=== PATIENT | female | born 1960 | race Two or more races ===

== ENCOUNTER 2016-09-05 05:16 | Inpatient (IN) | payer MEDICAID, OTHER ==
[~2016-09-05] VITALS: Ht 170.2 cm; Wt 94.9 kg
[~2016-09-05 05:16] MED LIST: AMOX-263 PO; ASPI-266 PO; ATOR20TA50 PO; CLON0.1T PO; DOCU-94 PO; DOXY-216 PO; ERGO1CAP23 PO; HYD25T PO; INS7030I BC; INS7030I SC; LOSA50TA6 PO; METO-158 PO; NIF30XLT PO; ONDA4TAB5 PO
[2016-09-05] MEDS ORDERED: cefTRIAXone 1GM/50ML D5W 50 ML IV ONE (07:00)
[2016-09-05 07:12] LABS: Basophils # (auto) 0.1 uL; Basophils % (auto) 0.9 % (0.0-2.0); Eosinophils # (auto) 0.4 uL; Eosinophils % (auto) 4.3 % (0.0-7.0); Hematocrit 32.5 % (36.0-46.0); Hemoglobin 10.8 g/dL (12.2-16.2); Lymphocytes # (auto) 2.3 uL; Lymphocytes % (auto) 25.8 % (10.0-50.0); Mean Corpuscular Hemoglobin 30.4 pg (28.0-32.0); Mean Corpuscular Hgb Conc. 33.2 g/dL (32.0-36.0); Mean Corpuscular Volume 91.7 fL (80.0-100.0); Mean Platelet Volume 10.1 fL (7.4-10.4); Monocytes # (auto) 0.5 uL; Monocytes % (auto) 5.3 % (0.0-12.0); Neutrophils # (auto) 5.7 uL; Neutrophils % (auto) 63.7 % (37.0-80.0); Platelet Count (auto) 155 10^3/uL (140-450); Red Cell Distribution Width 14.8 % (11.6-16.0); SUSPECT VIEW TRANSMISSION
[2016-09-05 07:21] LABS: INR 0.96 (0.9-1.15); Partial Thromboplastin Time 21.6 sec (22.64-33.71); Prothrombin Time 10.5 sec (9.37-12.3)
[2016-09-05 07:33] LABS: Albumin 3.4 g/dL (3.4-5.0); Alkaline Phosphatase 261 U/L (45-117); Anion Gap 13 (5-15); Aspartate Aminotransferase 61 U/L (15-37); BUN/Creatinine Ratio 5.4; Bilirubin, Total 0.4 mg/dL (0.2-1.0); Blood Urea Nitrogen 49 mg/dL (7-18); Calcium 7.5 mg/dL (8.5-10.1); Carbon Dioxide 26 mmol/L (21-32); Chloride 97 mmol/L (98-107); GFR African American 6 mL/min; GFR Non-African American 5 mL/min; Glucose 199 mg/dL (74-106); Magnesium 2.9 mg/dL (1.6-2.6); Potassium 4.4 mmol/L (3.5-5.1); Sodium 136 mmol/L (136-145); Total Protein 7.6 g/dL (6.4-8.2)
[2016-09-05] MEDS ORDERED: CLINDAMYCIN 600MG IV 50 ML IV ONE (09:00)
[2016-09-05] MEDS ORDERED: PIPERACILLIN-TAZOB 3.375GM 100 ML IV ONE (09:00)
[2016-09-05] MEDS ORDERED: DEXTROSE (50%) 50ML SYRG IV PRN (09:45)
[2016-09-05] MEDS ORDERED: NITROGLYCERIN 0.4 MG SL TAB SL PRN (09:45)
[2016-09-05] MEDS ORDERED: PROMETHAZINE HCL 25 MG/ML 1ML IV PRN (09:45)
[2016-09-05] MEDS ORDERED: LORazepam 0.5 MG TAB PO PRN (09:45)
[2016-09-05] MEDS ORDERED: MORPHINE SULF INJ 2 MG/ML SYRINGE 1ML IV PRN ×2 (09:45)
[2016-09-05] MEDS ORDERED: TEMAZEPAM 15 MG CAP PO PRN (09:45)
[2016-09-05] MEDS ORDERED: LACTULOSE 20Gm/30ML SOLN PO PRN (09:45)
[2016-09-05] MEDS ORDERED: HYDROcodone-ACET 5/325MG TAB PO PRN (09:45)
[2016-09-05] MEDS ORDERED: ACETAMINOPHEN 500 MG TAB PO PRN (09:45)
[2016-09-05] MEDS ORDERED: NITROGLYCERIN 0.2MG/HR TOPICAL PATCH TD SCH (10:00)
[2016-09-05] MEDS ORDERED: DOXYCYCLINE HYCLATE PO SCH (10:00)
[2016-09-05 10:12] LABS: Temperature: 23.8 C (20.0-25.0)
[2016-09-05] MEDS: FUROSEMIDE 40 MG/4 ML VIAL IV SCH (10:51)
[2016-09-05] MEDS: AMOXICILLIN/CLAVUL 875 MG TAB PO SCH ×2 (10:52→22:14)
[2016-09-05] MEDS: ENOXAPARIN SOD 30 MG/0.3 ML SYRINGE SC SCH (10:53)
[2016-09-05] MEDS: hydrALAZINE HCL 25 MG TAB PO SCH ×2 (10:54→22:00)
[2016-09-05] MEDS: METOPROLOL TARTRATE 50 MG TAB PO SCH ×2 (10:55→22:00)
[2016-09-05] MEDS: LOSARTAN POTASSIUM 50 MG TAB PO SCH (10:55)
[2016-09-05] MEDS: PANTOPRAZOLE 40 MG TAB PO SCH (10:56)
[2016-09-05] MEDS: DOXYCYCLINE 100 MG TAB/CAP PO SCH ×2 (10:56→22:14)
[2016-09-05] MEDS: DOCUSATE SOD 100 MG CAP PO SCH ×2 (10:57→22:15)
[2016-09-05] MEDS: ASPirin-EC 81 mg tab PO SCH (10:57)
[2016-09-05] MEDS: NIFEdipine ER 30 MG TAB PO SCH (10:57)
[2016-09-05] MEDS: ACCU-CHEK COMFORT CURVE STRIP VI SCH ×3 (10:59→18:19)
[2016-09-05] MEDS: InsuLIN REG 1unit/0.01ml Soln (100units/ml) SC SCH ×4 (11:01→23:05)
[2016-09-05 12:23] VITALS: BP 156/76
[2016-09-05 13:00] VITALS: BP_SYST 116; BP_SYST 156; BP_DIAS 69; BP_DIAS 76
[2016-09-05] MEDS: cloNIDine HCL 0.1 MG TAB PO SCH ×2 (13:24→22:14)
[2016-09-05] MEDS ORDERED: EPOETIN ALFA 2,000 UNIT/1 ML VIAL IV ONE (15:45)
[2016-09-05] MEDS ORDERED: SODIUM CHL 0.9% 1000 ML BAG XX ONE (15:45)
[2016-09-05] MEDS ORDERED: EPOETIN ALFA 3,000 UNIT/1 ML VIAL IV ONE (16:45)
[2016-09-05 17:00] VITALS: BP 144/64
[2016-09-05 19:37] VITALS: BP 130/65
[2016-09-05 22:00] VITALS: BP 125/55
[2016-09-05] MEDS ORDERED: ATORVASTATIN 20 MG TAB PO SCH (22:00)
[2016-09-06] MEDS: ACCU-CHEK COMFORT CURVE STRIP VI SCH ×4 (00:28→11:50)
[2016-09-06] MEDS: InsuLIN REG 1unit/0.01ml Soln (100units/ml) SC SCH ×4 (02:36→14:38)
[2016-09-06 05:00] VITALS: BP 119/51
[2016-09-06 06:21] LABS: Basophils # (auto) 0.1 uL; Basophils % (auto) 0.9 % (0.0-2.0); Eosinophils # (auto) 0.3 uL; Eosinophils % (auto) 4.8 % (0.0-7.0); Hematocrit 29.9 % (36.0-46.0); Hemoglobin 10.3 g/dL (12.2-16.2); Lymphocytes # (auto) 1.7 uL; Lymphocytes % (auto) 28.2 % (10.0-50.0); Mean Corpuscular Hemoglobin 31.2 pg (28.0-32.0); Mean Corpuscular Hgb Conc. 34.4 g/dL (32.0-36.0); Mean Corpuscular Volume 90.7 fL (80.0-100.0); Mean Platelet Volume 9.6 fL (7.4-10.4); Monocytes # (auto) 0.4 uL; Monocytes % (auto) 6.1 % (0.0-12.0); Neutrophils # (auto) 3.7 uL; Platelet Count (auto) 177 10^3/uL (140-450); Red Cell Distribution Width 15.2 % (11.6-16.0); White Blood Cell 6.2 10^3/uL (4.4-10.8)
[2016-09-06] MEDS: cloNIDine HCL 0.1 MG TAB PO SCH ×2 (06:45→14:15)
[2016-09-06 06:46] LABS: Albumin 2.7 g/dL (3.4-5.0); BUN/Creatinine Ratio 4.8; Bilirubin, Total 0.3 mg/dL (0.2-1.0); Calcium 7.7 mg/dL (8.5-10.1); Total Protein 6.6 g/dL (6.4-8.2)
[2016-09-06 08:00] VITALS: BP 128/57
[2016-09-06 09:00] VITALS: BP 128/57
[2016-09-06] MEDS: FUROSEMIDE 40 MG/4 ML VIAL IV SCH (09:59)
[2016-09-06] MEDS: PANTOPRAZOLE 40 MG TAB PO SCH (09:59)
[2016-09-06] MEDS: DOXYCYCLINE 100 MG TAB/CAP PO SCH (09:59)
[2016-09-06] MEDS: AMOXICILLIN/CLAVUL 875 MG TAB PO SCH (09:59)
[2016-09-06] MEDS: hydrALAZINE HCL 25 MG TAB PO SCH (09:59)
[2016-09-06] MEDS: ENOXAPARIN SOD 30 MG/0.3 ML SYRINGE SC SCH (10:00)
[2016-09-06] MEDS: METOPROLOL TARTRATE 50 MG TAB PO SCH (10:00)
[2016-09-06] MEDS: ASPirin-EC 81 mg tab PO SCH (10:00)
[2016-09-06] MEDS: DOCUSATE SOD 100 MG CAP PO SCH (10:00)
[2016-09-06] MEDS: LOSARTAN POTASSIUM 50 MG TAB PO SCH (11:00)
[2016-09-06] MEDS: NIFEdipine ER 30 MG TAB PO SCH (11:00)
[2016-09-06] MEDS ORDERED: ceFAZolin 1GM/50ML D5W 50 ML IV ONE (11:44)
[2016-09-06] MEDS ORDERED: NEOMYCIN-BACITRACIN-POLYM 15GM TOP OINT TOP ONE (11:51)
[2016-09-06] MEDS ORDERED: ceFAZolin 1GM VL ONE (11:51)
[2016-09-06] MEDS ORDERED: BACITRACIN TOP OINT 1 UD PKG TOP ONE (11:51)
[2016-09-06] MEDS ORDERED: BUPIVACAINE 0.75% INJ 10ML MPV SDV IJ ONE (11:51)
[2016-09-06] MEDS ORDERED: DEXAMETHASONE SOD PHOS 10MG/1ML VIAL INJ IV ONE (12:30)
[2016-09-06] MEDS ORDERED: ONDANSETRON HCL 4 MG/2 ML VIAL IV ONE ×2 (12:30→13:15)
[2016-09-06] MEDS ORDERED: fentaNYL CITRATE 100 MCG/2 ML VL ONE (12:48)
[2016-09-06 12:59] VITALS: BP 107/54
[2016-09-06 13:00] VITALS: BP 107/54
[2016-09-06] MEDS ORDERED: LABETALOL HCL 5 MG/ML 4ML SYRINGE IV PRN (13:15)
[2016-09-06] MEDS ORDERED: HYDROmorphone HCL 2 MG/ML VL IV PRN (13:15)
[2016-09-06 13:50] VITALS: BP 142/53
== END 2016-09-06 15:30 | disposition home health service (06) | DRG 622 ==
LOC: EDBD 05:16 → ER 05:16 → TELE 05:17 → TELE-WESTW 11:52
PROVIDERS: ADMIT Internal Medicine; ATTEND Family Medicine
PROC: 5A1D00Z (ICD-10-PCS; 2016-09-05)
PROC: 0HRMXK3 Replacement of Right Foot Skin with Nonautologous Tissue Substitute, Full Thickness, External Approach (ICD-10-PCS; 2016-09-06)
PROC: 0JBQ0ZZ Excision of Right Foot Subcutaneous Tissue and Fascia, Open Approach (ICD-10-PCS; principal; 2016-09-06 12:30)
DX: E11.621 Type 2 diabetes mellitus with foot ulcer (principal); G93.41 Metabolic encephalopathy; I13.2 Hypertensive heart and chronic kidney disease with heart failure and with stage 5 chronic kidney disease, or end stage renal disease; E11.649 Type 2 diabetes mellitus with hypoglycemia without coma; D64.9 Anemia, unspecified; N18.6 End stage renal disease; E11.22 Type 2 diabetes mellitus with diabetic chronic kidney disease; E78.5 Hyperlipidemia, unspecified; F41.9 Anxiety disorder, unspecified; I25.119 Atherosclerotic heart disease of native coronary artery with unspecified angina pectoris; L03.031 Cellulitis of right toe; G47.00 Insomnia, unspecified; K59.00 Constipation, unspecified; I50.9 Heart failure, unspecified; I48.91 Unspecified atrial fibrillation; L97.519 Non-pressure chronic ulcer of other part of right foot with unspecified severity; Z90.49 Acquired absence of other specified parts of digestive tract; Z95.0 Presence of cardiac pacemaker; Z99.2 Dependence on renal dialysis; Z79.82 Long term (current) use of aspirin; Z79.4 Long term (current) use of insulin; Z79.899 Other long term (current) drug therapy; Z71.89 Other specified counseling; Z80.8 Family history of malignant neoplasm of other organs or systems; Z82.49 Family history of ischemic heart disease and other diseases of the circulatory system; Z83.3 Family history of diabetes mellitus
CPT/HCPCS: 36415; 70450; 71010; 73700; 80053; 80320; 82550; 82962; 83036; 83605; 83735; 83880; 84443; 84484; 85025; 85610; 85652; 85730; 86850; 86900; 86901; 87040; 90935; 93005; 93923; 94761; 96365; 96366; 96375; J0690; J0696; J1100; J1642; J1815; J2405; J3490; Q4081

== ENCOUNTER 2016-10-03 11:33 | Emergency (ER) | payer OTHER, MEDICAID ==
[~2016-10-03] VITALS: Ht 167.6 cm; Wt 90.7 kg
[2016-10-03 12:24] LABS: Basophils # (auto) 0 uL; Basophils % (auto) 0.6 % (0.0-2.0); CONDITION Y; Eosinophils # (auto) 0.3 uL; Eosinophils % (auto) 4.1 % (0.0-7.0); Hematocrit 32.1 % (36.0-46.0); Hemoglobin 10.9 g/dL (12.2-16.2); Lymphocytes # (auto) 1.9 uL; Lymphocytes % (auto) 22.9 % (10.0-50.0); Mean Corpuscular Hemoglobin 30.4 pg (28.0-32.0); Mean Corpuscular Hgb Conc. 33.9 g/dL (32.0-36.0); Mean Corpuscular Volume 89.8 fL (80.0-100.0); Mean Platelet Volume 8.9 fL (7.4-10.4); Monocytes # (auto) 0.5 uL; Monocytes % (auto) 5.6 % (0.0-12.0); Neutrophils # (auto) 5.6 uL; Neutrophils % (auto) 66.8 % (37.0-80.0); Platelet Count (auto) 219 10^3/uL (140-450); Red Cell Distribution Width 13.9 % (11.6-16.0); White Blood Cell 8.4 10^3/uL (4.4-10.8)
[2016-10-03 13:28] LABS: Albumin 3.3 g/dL (3.4-5.0); BUN/Creatinine Ratio 6.4; Bilirubin, Total 0.3 mg/dL (0.2-1.0); Calcium 7.2 mg/dL (8.5-10.1); Potassium 5.1 mmol/L (3.5-5.1); Total Protein 7.2 g/dL (6.4-8.2)
[2016-10-03 14:10] VITALS: BP 130/67
== END 2016-10-03 15:53 | disposition home or self-care (01) ==
LOC: EDUNIT# 11:33 → ER 11:43
DX: R07.89 Other chest pain (principal); I13.2 Hypertensive heart and chronic kidney disease with heart failure and with stage 5 chronic kidney disease, or end stage renal disease; N18.6 End stage renal disease; Z79.899 Other long term (current) drug therapy; Z79.4 Long term (current) use of insulin; I50.9 Heart failure, unspecified; E11.22 Type 2 diabetes mellitus with diabetic chronic kidney disease; E78.5 Hyperlipidemia, unspecified; Z90.49 Acquired absence of other specified parts of digestive tract; Z95.0 Presence of cardiac pacemaker; Z99.2 Dependence on renal dialysis
CPT/HCPCS: 36415; 71010; 80053; 84484; 85025; 93005

== ENCOUNTER 2016-12-11 22:49 | Inpatient (IN) | payer OTHER, MEDICAID ==
[~2016-12-11] VITALS: Ht 162.6 cm; Wt 95.6 kg
[2016-12-11 23:50] LABS: Basophils # (auto) 0.1 uL; Basophils % (auto) 1.1 % (0.0-2.0); Eosinophils # (auto) 0.3 uL; Eosinophils % (auto) 3.5 % (0.0-7.0); Hemoglobin 11.4 g/dL (12.2-16.2); Lymphocytes # (auto) 2.8 uL; Mean Corpuscular Hemoglobin 29.2 pg (28.0-32.0); Mean Corpuscular Hgb Conc. 32.4 g/dL (32.0-36.0); Mean Platelet Volume 8.8 fL (7.4-10.4); Monocytes # (auto) 0.5 uL; Neutrophils # (auto) 4.6 uL; Neutrophils % (auto) 55.4 % (37.0-80.0); Platelet Count (auto) 226 10^3/uL (140-450); Red Cell Distribution Width 15.1 % (11.6-16.0); White Blood Cell 8.3 10^3/uL (4.4-10.8)
[2016-12-12] LABS: Albumin 3.5 g/dL (3.4-5.0); Anion Gap 12 (5-15); Aspartate Aminotransferase 25 U/L (15-37); BUN/Creatinine Ratio 5.7; Blood Urea Nitrogen 48 mg/dL (7-18); Carbon Dioxide 28 mmol/L (21-32); Chloride 98 mmol/L (98-107); GFR African American 6 mL/min; GFR Non-African American 5 mL/min; Glucose 236 mg/dL (74-106); Sodium 138 mmol/L (136-145)
[2016-12-12 00:05] LABS: Alkaline Phosphatase 195 U/L (45-117); Bilirubin, Total 0.3 mg/dL (0.2-1.0); Total Protein 7.7 g/dL (6.4-8.2)
[2016-12-12 00:09] LABS: Potassium 5.6 mmol/L (3.5-5.1)
[2016-12-12 00:35] LABS: INR 1.02 (0.9-1.15); Prothrombin Time 11.1 sec (9.37-12.3)
[2016-12-12 03:18] LABS: Partial Thromboplastin Time 27.3 sec (22.64-33.71)
[2016-12-12 04:09] LABS: Urine Bilirubin Negative (Negative); Urine Blood 1+ /uL (Negative); Urine Color Yellow (Yellow); Urine Glucose 3+ mg/dL (Normal); Urine Ketone Negative (Negative); Urine Nitrite Negative (Negative); Urine RBC 7 /hpf (0 - 4); Urine Squamous Epithelial Cell MOD /hpf (<5); Urine Urobilinogen Normal (Negative)
[2016-12-12] MEDS ORDERED: ONDANSETRON HCL 4 MG/2 ML VIAL IV ONE (05:15)
[2016-12-12] MEDS ORDERED: MORPHINE SULF INJ 2 MG/ML SYRINGE 1ML IV ONE (05:15)
[2016-12-12] MEDS ORDERED: SODIUM POLYSTYRENE SULF 15GM/60ML SUSP PR ONE (07:15)
[2016-12-12] MEDS ORDERED: LORazepam 0.5 MG TAB PO PRN (09:45)
[2016-12-12] MEDS ORDERED: TEMAZEPAM 15 MG CAP PO PRN (09:45)
[2016-12-12] MEDS ORDERED: ACETAMINOPHEN 500 MG TAB PO PRN (09:45)
[2016-12-12] MEDS ORDERED: NITROGLYCERIN 0.4 MG SL TAB SL PRN (09:45)
[2016-12-12] MEDS ORDERED: LACTULOSE 20Gm/30ML SOLN PO PRN (09:45)
[2016-12-12] MEDS ORDERED: MORPHINE SULF INJ 2 MG/ML SYRINGE 1ML IV PRN ×2 (09:45)
[2016-12-12] MEDS ORDERED: cefTRIAXone 1GM/50ML D5W 50 ML IV ONE (09:45)
[2016-12-12] MEDS ORDERED: PROMETHAZINE HCL 25 MG/ML 1ML IV PRN (09:45)
[2016-12-12] MEDS ORDERED: HYDROcodone-ACET 5/325MG TAB PO PRN (09:45)
[2016-12-12] MEDS ORDERED: DEXTROSE (50%) 50ML SYRG IV PRN (09:45)
[2016-12-12] MEDS: DOCUSATE SOD 100 MG CAP PO SCH ×2 (10:00→21:57)
[2016-12-12] MEDS ORDERED: ENOXAPARIN SOD 40 MG/0.4 ML SYRINGE SC SCH (10:00)
[2016-12-12] MEDS: NIFEdipine ER 30 MG TAB PO SCH (10:30)
[2016-12-12] MEDS ORDERED: FUROSEMIDE 20 MG/2 ML VIAL IV ONE (10:30)
[2016-12-12] MEDS: hydrALAZINE HCL 25 MG TAB PO SCH ×2 (10:30→21:56)
[2016-12-12] MEDS: METOPROLOL TARTRATE 50 MG TAB PO SCH ×2 (10:30→22:00)
[2016-12-12] MEDS: ASPirin 81 mg TAB PO SCH (10:30)
[2016-12-12] MEDS ORDERED: SODIUM POLYSTYRENE SULF 15GM/60ML SUSP PO ONE (10:30)
[2016-12-12] MEDS: PANTOPRAZOLE 40 MG TAB PO SCH (10:30)
[2016-12-12] MEDS: NITROGLYCERIN 0.2MG/HR TOPICAL PATCH TD SCH (10:30)
[2016-12-12] MEDS: ENOXAPARIN SOD 30 MG/0.3 ML SYRINGE SC SCH (10:30)
[2016-12-12] MEDS: InsuLIN REG 1unit/0.01ml Soln (100units/ml) SC SCH ×5 (10:58→23:35)
[2016-12-12] MEDS: ACCU-CHEK COMFORT CURVE STRIP VI SCH ×4 (12:00→23:35)
[2016-12-12 13:00] VITALS: BP 156/75
[2016-12-12] MEDS: CLINDAMYCIN 600MG IV 50 ML IV SCH ×2 (14:00→22:00)
[2016-12-12] MEDS: cloNIDine HCL 0.1 MG TAB PO SCH ×2 (14:00→21:58)
[2016-12-12] MEDS ORDERED: SODIUM CHL 0.9% 1000 ML BAG XX ONE (15:00)
[2016-12-12] MEDS ORDERED: MULT-647 PO (15:40)
[2016-12-12 16:45] VITALS: BP 133/67
[2016-12-12 20:00] VITALS: BP 126/70
[2016-12-12 21:59] VITALS: BP 126/70
[2016-12-12] MEDS ORDERED: ATORVASTATIN 20 MG TAB PO SCH (22:00)
[2016-12-13] MEDS: InsuLIN REG 1unit/0.01ml Soln (100units/ml) SC SCH ×4 (04:00→16:00)
[2016-12-13] MEDS: ACCU-CHEK COMFORT CURVE STRIP VI SCH ×4 (05:25→16:22)
[2016-12-13] MEDS: CLINDAMYCIN 600MG IV 50 ML IV SCH ×2 (05:26→14:00)
[2016-12-13] MEDS: cloNIDine HCL 0.1 MG TAB PO SCH ×2 (05:27→14:00)
[2016-12-13 05:34] VITALS: BP 126/57
[2016-12-13 06:30] LABS: Basophils # (auto) 0 uL; Basophils % (auto) 0.7 % (0.0-2.0); CONDITION Y; Eosinophils # (auto) 0.3 uL; Eosinophils % (auto) 4.2 % (0.0-7.0); Hematocrit 31.3 % (36.0-46.0); Hemoglobin 10.3 g/dL (12.2-16.2); Lymphocytes # (auto) 1.9 uL; Lymphocytes % (auto) 27.3 % (10.0-50.0); Mean Corpuscular Hemoglobin 29.9 pg (28.0-32.0); Mean Corpuscular Volume 90.5 fL (80.0-100.0); Mean Platelet Volume 9.5 fL (7.4-10.4); Monocytes # (auto) 0.4 uL; Monocytes % (auto) 5.9 % (0.0-12.0); Neutrophils # (auto) 4.3 uL; Neutrophils % (auto) 61.9 % (37.0-80.0); Platelet Count (auto) 212 10^3/uL (140-450); Red Cell Distribution Width 15.8 % (11.6-16.0)
[2016-12-13 06:47] LABS: Potassium 5.2 mmol/L (3.5-5.1)
[2016-12-13 07:02] LABS: Albumin 2.8 g/dL (3.4-5.0); BUN/Creatinine Ratio 5.9; Bilirubin, Total 0.3 mg/dL (0.2-1.0); Calcium 6.2 mg/dL (8.5-10.1); Total Protein 6.5 g/dL (6.4-8.2)
[2016-12-13] MEDS ORDERED: SODIUM POLYSTYRENE SULF 15GM/60ML SUSP PO ONE (07:15)
[2016-12-13] MEDS: DOCUSATE SOD 100 MG CAP PO SCH (07:54)
[2016-12-13] MEDS: PANTOPRAZOLE 40 MG TAB PO SCH (07:54)
[2016-12-13] MEDS: ASPirin 81 mg TAB PO SCH (07:54)
[2016-12-13 09:00] VITALS: BP 116/58
[2016-12-13] MEDS ORDERED: cefTRIAXone 1GM/50ML D5W 50 ML IV SCH ×2 (09:00)
[2016-12-13] MEDS: METOPROLOL TARTRATE 50 MG TAB PO SCH (09:10)
[2016-12-13] MEDS: NIFEdipine ER 30 MG TAB PO SCH (09:10)
[2016-12-13] MEDS: hydrALAZINE HCL 25 MG TAB PO SCH (09:10)
[2016-12-13] MEDS: ENOXAPARIN SOD 30 MG/0.3 ML SYRINGE SC SCH (09:10)
[2016-12-13] MEDS: NITROGLYCERIN 0.2MG/HR TOPICAL PATCH TD SCH (10:00)
[2016-12-13] MEDS ORDERED: HEPARIN 1,000 UNITS/ml 1ML VIAL IV SCH (10:45)
[2016-12-13 13:00] VITALS: BP 12/49
[2016-12-13] MEDS ORDERED: EPOETIN ALFA 10,000 UNIT/1 ML VIAL IV ONE (14:00)
[2016-12-13 16:43] VITALS: BP 121/54
[2016-12-13] MEDS ORDERED: HEPARIN SODIUM (PORCINE) 5000 UNITS/ML 1ML VIAL SC SCH (22:00)
== END 2016-12-13 18:10 | disposition home or self-care (01) | DRG 313 ==
LOC: ER 22:49 → OVERFLOW 22:50 → TELE-CENTR 12-12 12:24
PROVIDERS: ADMIT Internal Medicine; ATTEND Family Medicine
PROC: 5A1D00Z (ICD-10-PCS; principal; 2016-12-13)
DX: R07.89 Other chest pain (principal); I13.2 Hypertensive heart and chronic kidney disease with heart failure and with stage 5 chronic kidney disease, or end stage renal disease; N18.6 End stage renal disease; E11.22 Type 2 diabetes mellitus with diabetic chronic kidney disease; N39.0 Urinary tract infection, site not specified; E87.5 Hyperkalemia; L03.031 Cellulitis of right toe; F41.9 Anxiety disorder, unspecified; E78.5 Hyperlipidemia, unspecified; E11.51 Type 2 diabetes mellitus with diabetic peripheral angiopathy without gangrene; E11.65 Type 2 diabetes mellitus with hyperglycemia; I48.91 Unspecified atrial fibrillation; D64.9 Anemia, unspecified; E66.9 Obesity, unspecified; I50.9 Heart failure, unspecified; Z99.2 Dependence on renal dialysis; Z83.3 Family history of diabetes mellitus; Z95.0 Presence of cardiac pacemaker; Z90.49 Acquired absence of other specified parts of digestive tract; Z68.36 Body mass index [BMI] 36.0-36.9, adult; Z82.49 Family history of ischemic heart disease and other diseases of the circulatory system; Z79.899 Other long term (current) drug therapy; Z79.82 Long term (current) use of aspirin
CPT/HCPCS: 36415; 71010; 80053; 80307; 81001; 82550; 82962; 83036; 84484; 85025; 85610; 85652; 85730; 86141; 87086; 90935; 93005; 93306; 96365; 96375; G0378; J0696; J0885; J1642; J1815; J2405; J3490

== ENCOUNTER 2016-12-30 14:28 | Inpatient (IN) | payer MEDICAID, OTHER ==
[~2016-12-30] VITALS: Ht 162.6 cm; Wt 97.5 kg
[~2016-12-30 14:28] MED LIST changes: +MULT-647 PO
[2016-12-30] MEDS ORDERED: SODIUM CHLORIDE 0.9% 500 ML IV ONE (18:05)
[2016-12-30] MEDS ORDERED: MORPHINE SULF INJ 2 MG/ML SYRINGE 1ML IV ONE (18:15)
[2016-12-30] MEDS ORDERED: ONDANSETRON HCL 4 MG/2 ML VIAL IV ONE (18:15)
[2016-12-30] MEDS ORDERED: CLINDAMYCIN 600MG IV 50 ML IV ONE (18:30)
[2016-12-30] MEDS ORDERED: cefTRIAXone 1GM/50ML D5W 50 ML IV ONE (19:15)
[2016-12-30] MEDS ORDERED: cloNIDine HCL 0.1 MG TAB PO PRN (19:15)
[2016-12-30 19:18] LABS: Albumin 3.6 g/dL (3.4-5.0); BUN/Creatinine Ratio 6.8; Calcium 7.1 mg/dL (8.5-10.1); Potassium 4.9 mmol/L (3.5-5.1)
[2016-12-30 19:21] LABS: Bilirubin, Total 0.5 mg/dL (0.2-1.0)
[2016-12-30] MEDS ORDERED: NITROGLYCERIN 0.4 MG SL TAB SL PRN (19:30)
[2016-12-30] MEDS ORDERED: ACETAMINOPHEN 325 MG TAB PO PRN (19:30)
[2016-12-30] MEDS ORDERED: TEMAZEPAM 15 MG CAP PO PRN (19:30)
[2016-12-30] MEDS ORDERED: HYDROcodone-ACET 5/325MG TAB PO PRN (19:30)
[2016-12-30] MEDS ORDERED: ONDANSETRON HCL 4 MG/2 ML VIAL IV PRN (19:30)
[2016-12-30] MEDS ORDERED: MORPHINE SULF INJ 2 MG/ML SYRINGE 1ML IV PRN ×2 (19:30)
[2016-12-30 19:31] LABS: Basophils # (auto) 0.1 uL; Basophils % (auto) 0.8 % (0.0-2.0); Eosinophils # (auto) 0.3 uL; Eosinophils % (auto) 3.5 % (0.0-7.0); Hematocrit 37.5 % (36.0-46.0); Hemoglobin 12.3 g/dL (12.2-16.2); Lymphocytes # (auto) 2.7 uL; Lymphocytes % (auto) 33.8 % (10.0-50.0); Mean Corpuscular Hemoglobin 29.8 pg (28.0-32.0); Mean Corpuscular Hgb Conc. 32.7 g/dL (32.0-36.0); Mean Platelet Volume 8.6 fL (6.9-10.8); Monocytes # (auto) 0.5 uL; Monocytes % (auto) 6.1 % (0.0-12.0); Neutrophils # (auto) 4.4 uL; Neutrophils % (auto) 55.8 % (37.0-80.0); Platelet Count (auto) 193 10^3/uL (140-450); Red Cell Distribution Width 16.2 % (11.8-14.3); White Blood Cell 7.9 10^3/uL (4.4-10.8)
[2016-12-30 19:41] LABS: INR 0.95 (0.9-1.15); Prothrombin Time 10.4 sec (9.37-12.3)
[2016-12-30] MEDS: FAMOTIDINE 20 MG TAB PO SCH (19:59)
[2016-12-30 22:00] VITALS: BP 160/75
[2016-12-30] MEDS ORDERED: METOPROLOL TARTRATE 50 MG TAB PO SCH (22:00)
[2016-12-30] MEDS ORDERED: hydrALAZINE HCL 25 MG TAB PO SCH (22:00)
[2016-12-30] MEDS: SODIUM CHLOR 0.9% PF (SALINE LOCK) 10ML VIAL IV SCH (22:09)
[2016-12-30] MEDS: CLINDAMYCIN 300MG IV 50 ML IV SCH (22:10)
[2016-12-30] MEDS: ASCORBIC ACID 500 MG TAB PO SCH (22:10)
[2016-12-30] MEDS: ATORVASTATIN 20 MG TAB PO SCH (22:10)
[2016-12-30] MEDS: INSULIN 70/30 1unit/0.01ml Susp (100units/ml) SC SCH (22:12)
[2016-12-30] MEDS: DOCUSATE SOD 100 MG CAP PO PRN (22:47)
[2016-12-31] VITALS (9 sets, daily range): BP systolic 116–184; BP diastolic 42–77
[2016-12-31 05:33] LABS: Basophils # (auto) 0.1 uL; Basophils % (auto) 0.8 % (0.0-2.0); Eosinophils # (auto) 0.3 uL; Eosinophils % (auto) 3.4 % (0.0-7.0); Hematocrit 32.5 % (36.0-46.0); Hemoglobin 10.7 g/dL (12.2-16.2); Lymphocytes # (auto) 2.7 uL; Lymphocytes % (auto) 35.1 % (10.0-50.0); Mean Corpuscular Hemoglobin 29.6 pg (28.0-32.0); Mean Corpuscular Volume 89.8 fL (80.0-100.0); Mean Platelet Volume 8.7 fL (6.9-10.8); Monocytes # (auto) 0.5 uL; Monocytes % (auto) 6.3 % (0.0-12.0); Neutrophils # (auto) 4.1 uL; Neutrophils % (auto) 54.4 % (37.0-80.0); Platelet Count (auto) 171 10^3/uL (140-450); Red Cell Distribution Width 15.6 % (11.8-14.3); White Blood Cell 7.6 10^3/uL (4.4-10.8)
[2016-12-31] MEDS: CLINDAMYCIN 300MG IV 50 ML IV SCH ×3 (05:42→22:38)
[2016-12-31] MEDS: SODIUM CHLOR 0.9% PF (SALINE LOCK) 10ML VIAL IV SCH ×3 (05:42→22:40)
[2016-12-31 05:50] LABS: Albumin 2.9 g/dL (3.4-5.0); Calcium 6.6 mg/dL (8.5-10.1); Potassium 4.9 mmol/L (3.5-5.1)
[2016-12-31 05:53] LABS: BUN/Creatinine Ratio 6.9
[2016-12-31 05:56] LABS: Bilirubin, Total 0.3 mg/dL (0.2-1.0); Total Protein 6.5 g/dL (6.4-8.2)
[2016-12-31] MEDS ORDERED: INSULIN 70/30 1unit/0.01ml Susp (100units/ml) SC SCH (10:00)
[2016-12-31] MEDS ORDERED: LOSARTAN POTASSIUM 50 MG TAB PO SCH (10:00)
[2016-12-31] MEDS ORDERED: NIFEdipine ER 30 MG TAB PO SCH (10:00)
[2016-12-31] MEDS: cefTRIAXone 1GM/50ML D5W 50 ML IV SCH (10:11)
[2016-12-31] MEDS: ASCORBIC ACID 500 MG TAB PO SCH ×2 (10:11→22:39)
[2016-12-31] MEDS: FAMOTIDINE 20 MG TAB PO SCH (10:11)
[2016-12-31] MEDS: MULTIPLE VITAMIN TAB PO SCH (10:11)
[2016-12-31] MEDS: ZINC SULFATE 220 MG CAP PO SCH (10:11)
[2016-12-31] MEDS ORDERED: EPOETIN ALFA 3,000 UNIT/1 ML VIAL IV ONE (10:30)
[2016-12-31] MEDS ORDERED: EPOETIN ALFA 2,000 UNIT/1 ML VIAL IV ONE (10:30)
[2016-12-31] MEDS ORDERED: SODIUM CHL 0.9% 1000 ML BAG XX ONE (10:30)
[2016-12-31] MEDS ORDERED: CARVEDILOL 3.125 MG TAB PO ONE (10:45)
[2016-12-31] MEDS ORDERED: NIFEdipine ER 30 MG TAB PO ONE (10:45)
[2016-12-31] MEDS: InsuLIN REG 1unit/0.01ml Soln (100units/ml) SC SCH ×2 (11:55→18:00)
[2016-12-31] MEDS: ACCU-CHEK COMFORT CURVE STRIP VI SCH ×2 (11:55→18:05)
[2016-12-31] MEDS: NIFEdipine ER 30 MG TAB PO SCH (18:05)
[2016-12-31] MEDS: DOCUSATE SOD 100 MG CAP PO PRN (18:36)
[2016-12-31] MEDS: INSULIN 70/30 1unit/0.01ml Susp (100units/ml) SC SCH (22:39)
[2016-12-31] MEDS: ATORVASTATIN 20 MG TAB PO SCH (22:39)
[2016-12-31] MEDS: CARVEDILOL 3.125 MG TAB PO SCH (22:40)
[2017-01-01] MEDS: ACCU-CHEK COMFORT CURVE STRIP VI SCH ×4 (00:16→17:00)
[2017-01-01] MEDS: InsuLIN REG 1unit/0.01ml Soln (100units/ml) SC SCH ×4 (00:17→17:00)
[2017-01-01] MEDS: DEXTROSE (50%) 50ML SYRG IV PRN ×2 (04:13→06:51)
[2017-01-01 05:48] VITALS: BP 128/59
[2017-01-01] MEDS: CLINDAMYCIN 300MG IV 50 ML IV SCH ×2 (05:48→14:00)
[2017-01-01] MEDS: SODIUM CHLOR 0.9% PF (SALINE LOCK) 10ML VIAL IV SCH ×2 (05:48→14:00)
[2017-01-01 06:16] LABS: Basophils # (auto) 0.1 uL; Basophils % (auto) 0.9 % (0.0-2.0); Eosinophils # (auto) 0.2 uL; Eosinophils % (auto) 3.1 % (0.0-7.0); Hematocrit 35.2 % (36.0-46.0); Hemoglobin 11.6 g/dL (12.2-16.2); Lymphocytes # (auto) 2.4 uL; Lymphocytes % (auto) 34.6 % (10.0-50.0); Mean Corpuscular Hemoglobin 29.9 pg (28.0-32.0); Mean Corpuscular Hgb Conc. 32.9 g/dL (32.0-36.0); Mean Corpuscular Volume 90.9 fL (80.0-100.0); Mean Platelet Volume 8.9 fL (6.9-10.8); Monocytes # (auto) 0.4 uL; Monocytes % (auto) 5.7 % (0.0-12.0); Neutrophils # (auto) 3.9 uL; Neutrophils % (auto) 55.7 % (37.0-80.0); Nucleated Red Blood Cells % 0.1 %; Platelet Count (auto) 192 10^3/uL (140-450); Red Cell Distribution Width 16.2 % (11.8-14.3); White Blood Cell 6.9 10^3/uL (4.4-10.8)
[2017-01-01 06:46] LABS: BUN/Creatinine Ratio 5.7; Calcium 7.1 mg/dL (8.5-10.1); Potassium 4.1 mmol/L (3.5-5.1)
[2017-01-01 08:57] VITALS: BP 150/66
[2017-01-01 09:20] LABS: Partial Thromboplastin Time 27.8 sec (22.64-33.71); Prothrombin Time 10.9 sec (9.37-12.3)
[2017-01-01] MEDS: cefTRIAXone 1GM/50ML D5W 50 ML IV SCH (09:22)
[2017-01-01] MEDS: ZINC SULFATE 220 MG CAP PO SCH (09:23)
[2017-01-01] MEDS: ASCORBIC ACID 500 MG TAB PO SCH (09:23)
[2017-01-01] MEDS: FAMOTIDINE 20 MG TAB PO SCH (09:23)
[2017-01-01] MEDS: CARVEDILOL 3.125 MG TAB PO SCH (09:23)
[2017-01-01] MEDS: MULTIPLE VITAMIN TAB PO SCH (09:23)
[2017-01-01] MEDS ORDERED: ERGOCALCIFEROL 50,000 UNIT(1.25MG) CAP PO SCH (10:00)
[2017-01-01] MEDS ORDERED: ceFAZolin 1GM/50ML D5W 50 ML IV ONE (12:44)
[2017-01-01 13:00] VITALS: BP 144/60
[2017-01-01] MEDS ORDERED: ceFAZolin 1GM VL ONE (13:05)
[2017-01-01] MEDS ORDERED: BUPIVACAINE 0.75% INJ 10ML MPV SDV IJ ONE (13:06)
[2017-01-01] MEDS ORDERED: fentaNYL CITRATE 100 MCG/2 ML VL ONE (13:24)
[2017-01-01] MEDS ORDERED: PROPOFOL 10 MG/ML 20 ML IV ONE (13:24)
[2017-01-01] MEDS ORDERED: MIDAZOLAM HCL 1MG/1ML-2 ML VIAL ONE (13:24)
[2017-01-01] MEDS ORDERED: NEOMYCIN-BACITRACIN-POLYM 15GM TOP OINT TOP ONE (13:34)
[2017-01-01] MEDS ORDERED: ePHEDrine SULFATE 50 MG/ML AMP IV PRN (14:00)
[2017-01-01] MEDS ORDERED: fentaNYL CITRATE 100 MCG/2 ML VL IV ONE (14:00)
[2017-01-01] MEDS ORDERED: ONDANSETRON HCL 4 MG/2 ML VIAL IV ONE (14:00)
[2017-01-01] MEDS: hydrALAZINE HCL 20 MG/ML VL IV PRN ×2 (14:10→14:30)
[2017-01-01 17:00] VITALS: BP 141/61
[2017-01-01] MEDS: NIFEdipine ER 30 MG TAB PO SCH (18:00)
[2017-01-02] MEDS ORDERED: SODIUM CHL 0.9% 1000 ML BAG XX ONE (11:00)
[2017-01-03 12:07] LABS: Vitamin D 25-Hydroxy 54 ng/mL (.)
== END 2017-01-01 19:07 | disposition home or self-care (01) | DRG 264 ==
LOC: ER 14:28 → TELE 14:29 → TELE-EAST 20:13
PROVIDERS: ADMIT Internal Medicine; ATTEND Family Medicine
PROC: 5A1D00Z (ICD-10-PCS; 2016-12-31)
PROC: 0JBQ0ZZ Excision of Right Foot Subcutaneous Tissue and Fascia, Open Approach (ICD-10-PCS; principal; 2017-01-01 13:18)
DX: E10.52 Type 1 diabetes mellitus with diabetic peripheral angiopathy with gangrene (principal); I13.2 Hypertensive heart and chronic kidney disease with heart failure and with stage 5 chronic kidney disease, or end stage renal disease; N18.6 End stage renal disease; E10.22 Type 1 diabetes mellitus with diabetic chronic kidney disease; E10.621 Type 1 diabetes mellitus with foot ulcer; M86.8X7 Other osteomyelitis, ankle and foot; I50.42 Chronic combined systolic (congestive) and diastolic (congestive) heart failure; Z99.2 Dependence on renal dialysis; E78.5 Hyperlipidemia, unspecified; I25.10 Atherosclerotic heart disease of native coronary artery without angina pectoris; F41.9 Anxiety disorder, unspecified; D64.9 Anemia, unspecified; L97.519 Non-pressure chronic ulcer of other part of right foot with unspecified severity; S91.301A Unspecified open wound, right foot, initial encounter; L57.0 Actinic keratosis; E66.01 Morbid (severe) obesity due to excess calories; E10.69 Type 1 diabetes mellitus with other specified complication; Z79.4 Long term (current) use of insulin; Z68.36 Body mass index [BMI] 36.0-36.9, adult; Z83.3 Family history of diabetes mellitus; Z82.49 Family history of ischemic heart disease and other diseases of the circulatory system; Z90.49 Acquired absence of other specified parts of digestive tract; Z95.0 Presence of cardiac pacemaker; Z79.82 Long term (current) use of aspirin; Z79.899 Other long term (current) drug therapy
CPT/HCPCS: 36415; 71010; 73660; 78315; 80048; 80053; 82306; 82962; 83605; 83735; 83970; 84100; 85025; 85610; 85652; 85730; 87040; 87070; 87075; 87081; 87205; 90935; 93005; 93926; 94761; 96361; 96365; 96375; 97163; J0690; J0696; J1642; J1815; J2250; J2405; J2704; J3490; Q4081

== ENCOUNTER 2017-04-22 21:23 | Emergency (ER) | payer MEDICAID, OTHER ==
[~2017-04-22] VITALS: Ht 162.6 cm; Wt 90.7 kg
[~2017-04-22 21:23] MED LIST changes: -AMOX-263 PO; -DOXY-216 PO; -LOSA50TA6 PO
[2017-04-22 23:26] VITALS: BP 170/67
[2017-04-23 00:55] LABS: Basophils # (auto) 0.1 uL; Basophils % (auto) 1.2 % (0.0-2.0); Eosinophils # (auto) 0.2 uL; Eosinophils % (auto) 3.7 % (0.0-7.0); Hematocrit 37.9 % (36.0-46.0); Hemoglobin 12.6 g/dL (12.2-16.2); Lymphocytes # (auto) 2.1 uL; Lymphocytes % (auto) 32.1 % (10.0-50.0); Mean Corpuscular Hemoglobin 31.5 pg (28.0-32.0); Mean Corpuscular Hgb Conc. 33.3 g/dL (32.0-36.0); Mean Corpuscular Volume 94.6 fL (80.0-100.0); Monocytes # (auto) 0.5 uL; Monocytes % (auto) 7.1 % (0.0-12.0); Neutrophils # (auto) 3.7 uL; Neutrophils % (auto) 55.9 % (37.0-80.0); Platelet Count (auto) 189 10^3/uL (140-450); White Blood Cell 6.7 10^3/uL (4.4-10.8)
[2017-04-23 01:20] LABS: Potassium 4.1 mmol/L (3.5-5.1)
[2017-04-23 01:21] LABS: BUN/Creatinine Ratio 4.8; Calcium 7.1 mg/dL (8.5-10.1)
[2017-04-23 01:22] LABS: Albumin 3.3 g/dL (3.4-5.0); Bilirubin, Total 0.3 mg/dL (0.2-1.0); Total Protein 7.6 g/dL (6.4-8.2)
[2017-04-23] MEDS ORDERED: ACETAMINOPHEN/CODEINE#3 (300/30mg) TAB PO ONE (02:15)
[2017-04-23] MEDS ORDERED: CLINDAMYCIN 600 MG/4 ML VL IM ONE (02:15)
[2017-04-23] MEDS ORDERED: cefTRIAXone W LIDOCAINE 1 GM IM IM ONE (02:30)
[2017-04-23] MEDS ORDERED: ACETAMINOPHEN/CODEINE#3 (300/30mg) TAB ONE (02:45)
[2017-04-23] MEDS ORDERED: cefTRIAXone SOD 1,000 MG VL ONE (02:45)
== END 2017-04-23 03:01 | disposition home or self-care (01) ==
LOC: ER 21:23
DX: S91.331A Puncture wound without foreign body, right foot, initial encounter (principal); L03.115 Cellulitis of right lower limb; L97.519 Non-pressure chronic ulcer of other part of right foot with unspecified severity; E11.621 Type 2 diabetes mellitus with foot ulcer; I50.9 Heart failure, unspecified; I13.2 Hypertensive heart and chronic kidney disease with heart failure and with stage 5 chronic kidney disease, or end stage renal disease; F41.9 Anxiety disorder, unspecified; N18.6 End stage renal disease; E11.22 Type 2 diabetes mellitus with diabetic chronic kidney disease; E78.5 Hyperlipidemia, unspecified; Z90.49 Acquired absence of other specified parts of digestive tract; Z79.82 Long term (current) use of aspirin; Z79.4 Long term (current) use of insulin; Z79.899 Other long term (current) drug therapy; W21.31XA Struck by shoe cleats, initial encounter; Y93.89 Activity, other specified; Y92.89 Other specified places as the place of occurrence of the external cause; Y99.8 Other external cause status
CPT/HCPCS: 36415; 73630; 80053; 85025; 96372; 99285; J0696; J7030

== ENCOUNTER 2017-06-16 19:56 | Inpatient (IN) | payer OTHER, MEDICAID ==
[~2017-06-16] VITALS: Ht 162.6 cm; Wt 90.5 kg
[2017-06-16] MEDS ORDERED: cloNIDine HCL 0.1 MG TAB ONE (20:08)
[2017-06-16 20:53] LABS: Basophils # (auto) 0.1 uL; Basophils % (auto) 0.7 % (0.0-2.0); Eosinophils # (auto) 0.2 uL; Eosinophils % (auto) 2.8 % (0.0-7.0); Hematocrit 29.7 % (36.0-46.0); Lymphocytes # (auto) 2.3 uL; Mean Corpuscular Hemoglobin 32.4 pg (28.0-32.0); Mean Corpuscular Hgb Conc. 33.7 g/dL (32.0-36.0); Mean Corpuscular Volume 95.9 fL (80.0-100.0); Monocytes # (auto) 0.5 uL; Monocytes % (auto) 6.6 % (0.0-12.0); Neutrophils % (auto) 61.9 % (37.0-80.0); Nucleated Red Blood Cells % 0.1 %; Platelet Count (auto) 149 10^3/uL (140-450); Red Cell Distribution Width 14.8 % (11.8-14.3); White Blood Cell 8.2 10^3/uL (4.4-10.8)
[2017-06-16 21:10] LABS: Alanine Aminotransferase 79 U/L (13-56); Albumin 3.6 g/dL (3.4-5.0); Anion Gap 13 (5-15); Aspartate Aminotransferase 56 U/L (15-37); BUN/Creatinine Ratio 7.5; Blood Urea Nitrogen 68 mg/dL (7-18); Calcium 8.1 mg/dL (8.5-10.1); Carbon Dioxide 26 mmol/L (21-32); Chloride 98 mmol/L (98-107); GFR African American 6 mL/min; GFR Non-African American 5 mL/min; Glucose 159 mg/dL (74-106); Magnesium 2.9 mg/dL (1.6-2.6); Potassium 5.4 mmol/L (3.5-5.1); Sodium 137 mmol/L (136-145)
[2017-06-16 21:15] LABS: Alkaline Phosphatase 271 U/L (45-117); Bilirubin, Total 0.4 mg/dL (0.2-1.0); Total Protein 7.6 g/dL (6.4-8.2)
[2017-06-16] MEDS ORDERED: cloNIDine HCL 0.1 MG TAB PO ONE (22:00)
[2017-06-17] MEDS ORDERED: FUROSEMIDE 40 MG/4 ML VIAL IV ONE (07:30)
[2017-06-17] MEDS ORDERED: PIPERACILLIN-TAZOB 3.375GM 50 ML IV ONE (08:30)
[2017-06-17] MEDS ORDERED: ALBUTEROL SULF 2.5 MG/0.5ML(0.5%) NEB SOLN NEB STA (08:56)
[2017-06-17] MEDS ORDERED: DEXTROSE (50%) 50ML SYRG IV ONE (09:00)
[2017-06-17] MEDS ORDERED: CALCIUM GLUC 4.65meq/50ml D5AE 50 ML IV ONE (09:00)
[2017-06-17] MEDS ORDERED: InsuLIN REG 1unit/0.01ml Soln (100units/ml) IV ONE (09:00)
[2017-06-17] MEDS ORDERED: SODIUM BICARBONATE 8.4% INJ 50ML SYRINGE IV ONE (09:00)
[2017-06-17] MEDS ORDERED: TEMAZEPAM 15 MG CAP PO PRN (09:30)
[2017-06-17] MEDS ORDERED: MORPHINE SULFATE 4 MG/ML SYR/VIAL IV PRN ×2 (09:30)
[2017-06-17] MEDS ORDERED: cloNIDine HCL 0.1 MG TAB PO PRN (09:30)
[2017-06-17] MEDS ORDERED: ERGOCALCIFEROL 50,000 UNIT(1.25MG) CAP PO SCH ×2 (09:30→15:15)
[2017-06-17] MEDS ORDERED: VANCOMYCIN PER PHARMACY 0 MG IV SCH (09:30)
[2017-06-17] MEDS ORDERED: ONDANSETRON HCL 4 MG/2 ML VIAL IV PRN (09:30)
[2017-06-17] MEDS ORDERED: DOCUSATE SOD 100 MG CAP PO PRN (09:30)
[2017-06-17] MEDS ORDERED: NITROGLYCERIN 0.4 MG SL TAB SL PRN (09:30)
[2017-06-17] MEDS ORDERED: HYDROcodone-ACET 5/325MG TAB PO PRN (09:30)
[2017-06-17] MEDS: INSULIN 70/30 1unit/0.01ml Susp (100units/ml) SC SCH (09:45)
[2017-06-17] MEDS: MULTIPLE VITAMIN TAB PO SCH (10:00)
[2017-06-17] MEDS: ASPirin-EC 81 mg tab PO SCH (10:00)
[2017-06-17] MEDS: METOPROLOL TARTRATE 50 MG TAB PO SCH ×2 (10:00→22:03)
[2017-06-17] MEDS: ASCORBIC ACID 500 MG TAB PO SCH ×2 (10:00→22:03)
[2017-06-17] MEDS ORDERED: PIPERACILLIN-TAZOB 0.75 GM in D5W 5% 50 ML IV PRN (10:00)
[2017-06-17] MEDS: ZINC SULFATE 220 MG CAP PO SCH (10:00)
[2017-06-17] MEDS: B-COMPLEX W/ C & FOLIC ACID(NEPHROVITE TAB) PO SCH (10:00)
[2017-06-17] MEDS: NIFEdipine ER 30 MG TAB PO SCH (10:00)
[2017-06-17] MEDS: hydrALAZINE HCL 25 MG TAB PO SCH ×2 (10:00→22:02)
[2017-06-17] MEDS ORDERED: PIPERACILLIN-TAZOB 2.25GM 50 ML IV SCH (10:00)
[2017-06-17] MEDS ORDERED: VANCOMYCIN 1GM/250ML 250 ML IV ONE ×2 (11:00→15:15)
[2017-06-17] MEDS ORDERED: EPOETIN ALFA 10,000 UNIT/1 ML VIAL IV ONE (12:15)
[2017-06-17] MEDS ORDERED: SODIUM CHL 0.9% 1000 ML BAG XX ONE (12:15)
[2017-06-17 13:00] VITALS: BP 148/62
[2017-06-17 13:08] LABS: Hematocrit 29.6 % (36.0-46.0); Hemoglobin 9.9 g/dL (12.2-16.2); Mean Corpuscular Hemoglobin 32.1 pg (28.0-32.0); Mean Corpuscular Hgb Conc. 33.5 g/dL (32.0-36.0); Mean Corpuscular Volume 95.7 fL (80.0-100.0); Platelet Count (auto) 127 10^3/uL (140-450); Red Blood Cells 3.09 10^6/uL (4.0-5.20); Red Cell Distribution Width 14.9 % (11.8-14.3)
[2017-06-17 13:17] LABS: Lymphocytes % (auto) 23.6 % (10.0-50.0); Monocytes % (auto) 5.8 % (0.0-12.0); Neutrophils % (auto) 68.7 % (37.0-80.0)
[2017-06-17 13:18] LABS: Basophils # (auto) 0 uL; Basophils % (auto) 0.5 % (0.0-2.0); Eosinophils # (auto) 0.1 uL; Eosinophils % (auto) 1.4 % (0.0-7.0); Lymphocytes # (auto) 1.7 uL; Monocytes # (auto) 0.4 uL; Neutrophils # (auto) 4.8 uL
[2017-06-17] MEDS: SODIUM CHLOR 0.9% PF (SALINE LOCK) 10ML VIAL IV SCH ×2 (14:00→22:00)
[2017-06-17 16:29] VITALS: BP 138/62
[2017-06-17] MEDS: ACETAMINOPHEN 325 MG TAB PO PRN (17:06)
[2017-06-17 21:58] VITALS: BP 166/69
[2017-06-17] MEDS ORDERED: INSULIN 70/30 1unit/0.01ml Susp (100units/ml) SC SCH (22:00)
[2017-06-17] MEDS ORDERED: ATORVASTATIN 20 MG TAB PO SCH (22:00)
[2017-06-17] MEDS: PIPERACILLIN-TAZOB 2.25GM 50 ML IV SCH (22:02)
[2017-06-18] MEDS: ACETAMINOPHEN 325 MG TAB PO PRN (04:18)
[2017-06-18 05:00] VITALS: BP 135/65
[2017-06-18] MEDS: SODIUM CHLOR 0.9% PF (SALINE LOCK) 10ML VIAL IV SCH ×2 (06:04→14:00)
[2017-06-18 06:36] LABS: Albumin 3.2 g/dL (3.4-5.0); Calcium 7.3 mg/dL (8.5-10.1)
[2017-06-18] MEDS: INSULIN 70/30 1unit/0.01ml Susp (100units/ml) SC SCH (06:36)
[2017-06-18 06:40] LABS: Basophils # (auto) 0 uL; Basophils % (auto) 0.5 % (0.0-2.0); Eosinophils # (auto) 0.2 uL; Eosinophils % (auto) 2.3 % (0.0-7.0); Hematocrit 25.9 % (36.0-46.0); Hemoglobin 8.8 g/dL (12.2-16.2); Lymphocytes % (auto) 27.8 % (10.0-50.0); Mean Corpuscular Hemoglobin 32.1 pg (28.0-32.0); Mean Corpuscular Hgb Conc. 33.7 g/dL (32.0-36.0); Mean Corpuscular Volume 95.2 fL (80.0-100.0); Monocytes # (auto) 0.4 uL; Monocytes % (auto) 6.1 % (0.0-12.0); Neutrophils # (auto) 4.5 uL; Neutrophils % (auto) 63.3 % (37.0-80.0); Nucleated Red Blood Cells % 0.1 %; Platelet Count (auto) 122 10^3/uL (140-450); Red Blood Cells 2.72 10^6/uL (4.0-5.20); White Blood Cell 7.1 10^3/uL (4.4-10.8)
[2017-06-18 06:41] LABS: % Iron Saturation 35.6 % (15-50)
[2017-06-18 06:44] LABS: BUN/Creatinine Ratio 7.5; Bilirubin, Total 0.4 mg/dL (0.2-1.0); Total Protein 6.8 g/dL (6.4-8.2)
[2017-06-18 06:53] LABS: Potassium 5.7 mmol/L (3.5-5.1)
[2017-06-18 08:00] VITALS: BP 156/70
[2017-06-18 09:00] VITALS: BP 156/70
[2017-06-18] MEDS: MULTIPLE VITAMIN TAB PO SCH (09:11)
[2017-06-18] MEDS: ZINC SULFATE 220 MG CAP PO SCH (09:11)
[2017-06-18] MEDS: B-COMPLEX W/ C & FOLIC ACID(NEPHROVITE TAB) PO SCH (09:11)
[2017-06-18] MEDS: ASPirin-EC 81 mg tab PO SCH (09:12)
[2017-06-18] MEDS: ASCORBIC ACID 500 MG TAB PO SCH (09:12)
[2017-06-18] MEDS: METOPROLOL TARTRATE 50 MG TAB PO SCH (09:12)
[2017-06-18] MEDS: hydrALAZINE HCL 25 MG TAB PO SCH (09:13)
[2017-06-18] MEDS: NIFEdipine ER 30 MG TAB PO SCH (09:13)
[2017-06-18] MEDS: PIPERACILLIN-TAZOB 2.25GM 50 ML IV SCH (09:13)
[2017-06-18] MEDS ORDERED: SODIUM CHL 0.9% 1000 ML BAG XX ONE ×2 (12:00→17:15)
[2017-06-18] MEDS ORDERED: EPOETIN ALFA 10,000 UNIT/1 ML VIAL IV ONE ×2 (12:00→17:15)
[2017-06-18 13:00] VITALS: BP 161/78
[2017-06-18] MEDS ORDERED: VANCOMYCIN 1GM/250ML 250 ML IV ONE (16:00)
[2017-06-18 17:00] VITALS: BP 156/71
== END 2017-06-18 20:26 | disposition home or self-care (01) | DRG 291 ==
LOC: ER 19:56 → TELE 19:57 → TELE-WESTW 06-17 11:20
PROVIDERS: ADMIT Internal Medicine; ATTEND Family Medicine
PROC: 5A1D70Z Performance of Urinary Filtration, Intermittent, Less than 6 Hours Per Day (ICD-10-PCS; principal; 2017-06-18)
DX: I13.2 Hypertensive heart and chronic kidney disease with heart failure and with stage 5 chronic kidney disease, or end stage renal disease (principal); N18.6 End stage renal disease; E10.21 Type 1 diabetes mellitus with diabetic nephropathy; L03.115 Cellulitis of right lower limb; E83.41 Hypermagnesemia; E10.319 Type 1 diabetes mellitus with unspecified diabetic retinopathy without macular edema; I50.43 Acute on chronic combined systolic (congestive) and diastolic (congestive) heart failure; R65.10 Systemic inflammatory response syndrome (SIRS) of non-infectious origin without acute organ dysfunction; S91.331A Puncture wound without foreign body, right foot, initial encounter; I50.9 Heart failure, unspecified; W18.39XA Other fall on same level, initial encounter; E83.51 Hypocalcemia; E87.5 Hyperkalemia; I25.119 Atherosclerotic heart disease of native coronary artery with unspecified angina pectoris; D63.8 Anemia in other chronic diseases classified elsewhere; E10.22 Type 1 diabetes mellitus with diabetic chronic kidney disease; E78.5 Hyperlipidemia, unspecified; F41.9 Anxiety disorder, unspecified; D50.9 Iron deficiency anemia, unspecified; M19.90 Unspecified osteoarthritis, unspecified site; Z79.4 Long term (current) use of insulin; Z82.49 Family history of ischemic heart disease and other diseases of the circulatory system; Z83.3 Family history of diabetes mellitus; Z99.2 Dependence on renal dialysis; Y93.89 Activity, other specified; Y92.89 Other specified places as the place of occurrence of the external cause; Y99.8 Other external cause status
CPT/HCPCS: 36415; 73700; 80053; 80202; 82962; 83036; 83540; 83550; 83605; 83735; 83880; 84132; 84443; 84484; 85025; 87040; 87081; 90935; 93005; 94640; 96365; 96375; J0610; J0885; J1642; J1815; J2543

== ENCOUNTER 2018-01-08 22:36 | Emergency (ER) | payer OTHER, MEDICAID ==
[~2018-01-08] VITALS: Ht 162.6 cm; Wt 90.7 kg
[2018-01-09] LABS: Basophils # (auto) 0.1 uL; Basophils % (auto) 0.9 % (0.0-2.0); Eosinophils # (auto) 0.3 uL; Eosinophils % (auto) 3.3 % (0.0-7.0); Hematocrit 32.8 % (36.0-46.0); Hemoglobin 10.9 g/dL (12.2-16.2); Lymphocytes # (auto) 2.6 uL; Lymphocytes % (auto) 33.7 % (10.0-50.0); Mean Corpuscular Hemoglobin 33.3 pg (28.0-32.0); Mean Corpuscular Hgb Conc. 33.1 g/dL (32.0-36.0); Mean Corpuscular Volume 100.6 fL (80.0-100.0); Monocytes # (auto) 0.5 uL; Monocytes % (auto) 6.3 % (0.0-12.0); Neutrophils # (auto) 4.3 uL; Neutrophils % (auto) 55.8 % (37.0-80.0); Platelet Count (auto) 177 10^3/uL (140-450); Red Blood Cells 3.26 10^6/uL (4.0-5.20); Red Cell Distribution Width 13.6 % (11.8-14.3); White Blood Cell 7.7 10^3/uL (4.4-10.8)
[2018-01-09 00:16] LABS: INR 0.94 (0.9-1.15); Partial Thromboplastin Time 26.9 sec (23.78-33.04); Prothrombin Time 10.1 sec (9.27-12.13)
[2018-01-09 00:18] LABS: Alanine Aminotransferase 28 U/L (13-56); Albumin 3.6 g/dL (3.4-5.0); Anion Gap 13 (5-15); Aspartate Aminotransferase 24 U/L (15-37); Blood Urea Nitrogen 48 mg/dL (7-18); Calcium 7.6 mg/dL (8.5-10.1); Carbon Dioxide 28 mmol/L (21-32); Chloride 97 mmol/L (98-107); GFR African American 7 mL/min; GFR Non-African American 6 mL/min; Glucose 261 mg/dL (74-106); Magnesium 2.4 mg/dL (1.6-2.6); Potassium 5.4 mmol/L (3.5-5.1); Sodium 138 mmol/L (136-145)
[2018-01-09 00:23] LABS: Alkaline Phosphatase 138 U/L (45-117); Bilirubin, Total 0.4 mg/dL (0.2-1.0); Total Protein 8.2 g/dL (6.4-8.2)
[2018-01-09 01:54] VITALS: BP 112/68
== END 2018-01-09 02:44 | disposition home or self-care (01) ==
LOC: ER 22:38
DX: L02.611 Cutaneous abscess of right foot (principal); M14.671 Charcot's joint, right ankle and foot; L84 Corns and callosities; E11.22 Type 2 diabetes mellitus with diabetic chronic kidney disease; I13.0 Hypertensive heart and chronic kidney disease with heart failure and stage 1 through stage 4 chronic kidney disease, or unspecified chronic kidney disease; N18.9 Chronic kidney disease, unspecified; E78.5 Hyperlipidemia, unspecified; I10 Essential (primary) hypertension; Z90.49 Acquired absence of other specified parts of digestive tract; Z79.4 Long term (current) use of insulin; Z88.6 Allergy status to analgesic agent
CPT/HCPCS: 36415; 73630; 80053; 82962; 83605; 83735; 83880; 84484; 85025; 85379; 85610; 85730; 87040

== ENCOUNTER 2018-01-28 00:36 | Emergency (ER) | payer OTHER, MEDICAID ==
[~2018-01-28] VITALS: Ht 162.6 cm; Wt 93.0 kg
[2018-01-28] MEDS ORDERED: LEVOFLOXACIN 500 MG TAB PO ONE (02:00)
[2018-01-28 02:52] LABS: Basophils # (auto) 0 uL; Basophils % (auto) 0.8 % (0.0-2.0); Eosinophils # (auto) 0.1 uL; Eosinophils % (auto) 2.1 % (0.0-7.0); Hemoglobin 10.7 g/dL (12.2-16.2); Lymphocytes # (auto) 1.7 uL; Lymphocytes % (auto) 31.8 % (10.0-50.0); Mean Corpuscular Hgb Conc. 33.4 g/dL (32.0-36.0); Mean Corpuscular Volume 98.7 fL (80.0-100.0); Monocytes # (auto) 0.6 uL; Neutrophils # (auto) 2.9 uL; Neutrophils % (auto) 54.3 % (37.0-80.0); Nucleated Red Blood Cells % 0.1 %; Platelet Count (auto) 139 10^3/uL (140-450); Red Blood Cells 3.24 10^6/uL (4.0-5.20); Red Cell Distribution Width 13.5 % (11.8-14.3); White Blood Cell 5.3 10^3/uL (4.4-10.8)
[2018-01-28 03:22] LABS: Albumin 3.5 g/dL (3.4-5.0); Calcium 6.9 mg/dL (8.5-10.1); Potassium 4.7 mmol/L (3.5-5.1)
[2018-01-28 03:27] LABS: Bilirubin, Total 0.5 mg/dL (0.2-1.0); Total Protein 7.5 g/dL (6.4-8.2)
[2018-01-28 04:47] VITALS: BP 165/87
== END 2018-01-28 04:49 | disposition home or self-care (01) ==
LOC: ER 00:36
DX: J06.9 Acute upper respiratory infection, unspecified (principal); E11.22 Type 2 diabetes mellitus with diabetic chronic kidney disease; I12.0 Hypertensive chronic kidney disease with stage 5 chronic kidney disease or end stage renal disease; N18.6 End stage renal disease; E78.5 Hyperlipidemia, unspecified; Z99.2 Dependence on renal dialysis; Z79.4 Long term (current) use of insulin; Z90.49 Acquired absence of other specified parts of digestive tract; Z96.89 Presence of other specified functional implants
CPT/HCPCS: 36415; 71045; 80053; 84484; 85025

== ENCOUNTER 2018-05-22 03:34 | Inpatient (IN) | payer MEDICARE, MEDICAID ==
[~2018-05-22] VITALS: Ht 162.6 cm; Wt 94.0 kg
[~2018-05-22 03:34] MED LIST changes: -INS7030I BC
[2018-05-22] MEDS ORDERED: VANCOMYCIN 1GM/250ML 250 ML IV ONE (07:15)
[2018-05-22] MEDS ORDERED: PIPERACILLIN-TAZOB 3.375GM 100 ML IV ONE (07:15)
[2018-05-22 08:17] LABS: Basophils # (auto) 0.1 uL; Eosinophils # (auto) 0.3 uL; Eosinophils % (auto) 3.7 % (0.0-7.0); Hematocrit 35.8 % (36.0-46.0); Hemoglobin 11.9 g/dL (12.2-16.2); Lymphocytes # (auto) 1.8 uL; Lymphocytes % (auto) 22.2 % (10.0-50.0); Mean Corpuscular Hemoglobin 32.7 pg (28.0-32.0); Mean Corpuscular Hgb Conc. 33.2 g/dL (32.0-36.0); Mean Corpuscular Volume 98.6 fL (80.0-100.0); Monocytes # (auto) 0.4 uL; Monocytes % (auto) 5.2 % (0.0-12.0); Neutrophils # (auto) 5.7 uL; Neutrophils % (auto) 67.9 % (37.0-80.0); Nucleated Red Blood Cells % 0.1 %; Platelet Count (auto) 198 10^3/uL (140-450); Red Blood Cells 3.63 10^6/uL (4.0-5.20); Red Cell Distribution Width 15.3 % (11.8-14.3); White Blood Cell 8.3 10^3/uL (4.4-10.8)
[2018-05-22 08:21] LABS: Albumin 3.6 g/dL (3.4-5.0); BUN/Creatinine Ratio 5.9; Calcium 7.4 mg/dL (8.5-10.1); Potassium 4.8 mmol/L (3.5-5.1)
[2018-05-22 08:23] LABS: Bilirubin, Total 0.4 mg/dL (0.2-1.0); Total Protein 7.7 g/dL (6.4-8.2)
[2018-05-22] MEDS ORDERED: CLINDAMYCIN 900MG IV 50 ML IV ONE (09:15)
[2018-05-22] MEDS ORDERED: MORPHINE SULFATE 4 MG/ML SYR/VIAL IV PRN ×2 (09:15)
[2018-05-22] MEDS ORDERED: DEXTROSE (50%) 50ML SYRG IV PRN (09:15)
[2018-05-22] MEDS ORDERED: LACTULOSE 20Gm/30ML SOLN PO PRN (09:15)
[2018-05-22] MEDS ORDERED: NITROGLYCERIN 0.4 MG SL TAB SL PRN (09:15)
[2018-05-22] MEDS ORDERED: ONDANSETRON HCL 4 MG/2 ML VIAL IV PRN (09:15)
[2018-05-22] MEDS ORDERED: TEMAZEPAM 15 MG CAP PO PRN (09:15)
[2018-05-22] MEDS ORDERED: LORazepam 0.5 MG TAB PO PRN (09:15)
[2018-05-22] MEDS ORDERED: HYDROcodone-ACET 5/325MG TAB PO PRN (09:15)
[2018-05-22] MEDS ORDERED: PIPERACILLIN-TAZOB 0.75 GM in D5W 5% 50 ML IV PRN (09:30)
[2018-05-22] MEDS: ENOXAPARIN SOD 30 MG/0.3 ML SYRINGE SC SCH (09:57)
[2018-05-22] MEDS: PANTOPRAZOLE 40 MG TAB PO SCH (09:57)
[2018-05-22 10:00] LABS: INR 0.93 (0.9-1.15); Partial Thromboplastin Time 29.5 sec (23.78-33.04)
[2018-05-22] MEDS: PIPERACILLIN-TAZOB 2.25GM 50 ML IV SCH ×2 (10:06→23:48)
[2018-05-22] MEDS: ACETAMINOPHEN 500 MG TAB PO PRN (10:06)
[2018-05-22] MEDS ORDERED: hydrALAZINE HCL 20 MG/ML VL IV PRN ×2 (10:15)
[2018-05-22] MEDS ORDERED: hydrALAZINE HCL 25 MG TAB PO ONE (10:15)
[2018-05-22] MEDS ORDERED: NIFEdipine ER 30 MG TAB PO ONE (10:15)
[2018-05-22] MEDS ORDERED: cloNIDine HCL 0.1 MG TAB PO ONE (10:15)
[2018-05-22] MEDS ORDERED: METOPROLOL TARTRATE 50 MG TAB PO ONE (10:15)
[2018-05-22] MEDS ORDERED: hydrALAZINE HCL 20 MG/ML VL IV ONE (10:15)
[2018-05-22] MEDS ORDERED: ERGOCALCIFEROL 50,000 UNIT(1.25MG) CAP PO SCH (11:00)
[2018-05-22] MEDS: ACCU-CHEK COMFORT CURVE STRIP VI SCH ×3 (12:43→22:49)
[2018-05-22] MEDS: InsuLIN REG 1unit/0.01ml Soln (100units/ml) SC SCH ×3 (12:47→22:50)
[2018-05-22 14:34] VITALS: BP 155/80
[2018-05-22] MEDS ORDERED: FERR1TAB5 PO (15:48)
[2018-05-22] MEDS ORDERED: BISA-4 PO (15:49)
[2018-05-22] MEDS ORDERED: ASCO500T11 PO (15:50)
[2018-05-22] MEDS: CLINDAMYCIN 600MG IV 50 ML IV SCH ×2 (15:56→22:47)
[2018-05-22 17:00] VITALS: BP 164/85
[2018-05-22 22:00] VITALS: BP 167/71
[2018-05-22] MEDS ORDERED: cloNIDine HCL 0.1 MG TAB PO SCH (22:00)
[2018-05-22] MEDS ORDERED: hydrALAZINE HCL 25 MG TAB PO SCH (22:00)
[2018-05-22] MEDS: ATORVASTATIN 20 MG TAB PO SCH (22:48)
[2018-05-22] MEDS: METOPROLOL TARTRATE 50 MG TAB PO SCH (22:49)
[2018-05-23 04:59] VITALS: BP 155/77
[2018-05-23] MEDS: CLINDAMYCIN 600MG IV 50 ML IV SCH ×3 (06:43→22:36)
[2018-05-23 07:06] LABS: Basophils # (auto) 0.1 uL; Basophils % (auto) 1.1 % (0.0-2.0); Eosinophils # (auto) 0.4 uL; Hematocrit 34.2 % (36.0-46.0); Hemoglobin 11.4 g/dL (12.2-16.2); Lymphocytes # (auto) 1.1 uL; Lymphocytes % (auto) 16.7 % (10.0-50.0); Mean Corpuscular Hemoglobin 32.6 pg (28.0-32.0); Mean Corpuscular Hgb Conc. 33.3 g/dL (32.0-36.0); Mean Corpuscular Volume 97.9 fL (80.0-100.0); Monocytes # (auto) 0.3 uL; Monocytes % (auto) 4.6 % (0.0-12.0); Neutrophils # (auto) 4.9 uL; Neutrophils % (auto) 71.6 % (37.0-80.0); Platelet Count (auto) 217 10^3/uL (140-450); Red Blood Cells 3.49 10^6/uL (4.0-5.20); Red Cell Distribution Width 15.4 % (11.8-14.3); White Blood Cell 6.8 10^3/uL (4.4-10.8)
[2018-05-23] MEDS: InsuLIN REG 1unit/0.01ml Soln (100units/ml) SC SCH ×4 (07:06→22:00)
[2018-05-23] MEDS: ACCU-CHEK COMFORT CURVE STRIP VI SCH ×4 (07:06→22:39)
[2018-05-23 07:31] LABS: Sodium 131 mmol/L (136-145)
[2018-05-23 07:35] LABS: Anion Gap 13 (5-15); Blood Urea Nitrogen 68 mg/dL (7-18); Carbon Dioxide 21 mmol/L (21-32); Chloride 97 mmol/L (98-107); Glucose 148 mg/dL (74-106)
[2018-05-23 07:36] LABS: Alanine Aminotransferase 24 U/L (13-56); Alkaline Phosphatase 129 U/L (45-117); Aspartate Aminotransferase 17 U/L (15-37); BUN/Creatinine Ratio 6.1; Bilirubin, Total 0.5 mg/dL (0.2-1.0); Calcium 7.5 mg/dL (8.5-10.1); GFR African American 5 mL/min; GFR Non-African American 4 mL/min
[2018-05-23 07:37] LABS: Albumin 3.3 g/dL (3.4-5.0); Cholesterol 153 mg/dL (< 200); HDL Cholesterol 51 mg/dL (40-59); LDL Cholesterol 92 mg/dL (< 100); Total Protein 7.4 g/dL (6.4-8.2); Triglycerides 134 mg/dL (< 150)
[2018-05-23 07:42] LABS: Potassium 5.8 mmol/L (3.5-5.1)
[2018-05-23 08:00] VITALS: BP 136/66
[2018-05-23 09:34] VITALS: BP 136/96
[2018-05-23] MEDS: METOPROLOL TARTRATE 50 MG TAB PO SCH ×2 (10:00→22:39)
[2018-05-23] MEDS: NIFEdipine ER 30 MG TAB PO SCH (10:00)
[2018-05-23] MEDS: PIPERACILLIN-TAZOB 2.25GM 50 ML IV SCH (10:15)
[2018-05-23] MEDS: PANTOPRAZOLE 40 MG TAB PO SCH (10:15)
[2018-05-23] MEDS: ENOXAPARIN SOD 30 MG/0.3 ML SYRINGE SC SCH (10:16)
[2018-05-23] MEDS ORDERED: SODIUM CHL 0.9% 1000 ML BAG XX ONE (10:45)
[2018-05-23 13:06] VITALS: BP 151/69
[2018-05-23] MEDS: hydrALAZINE HCL 25 MG TAB PO SCH ×2 (14:16→22:37)
[2018-05-23 17:28] VITALS: BP 164/71
[2018-05-23 21:35] VITALS: BP 174/80
[2018-05-23] MEDS: ATORVASTATIN 20 MG TAB PO SCH (22:38)
[2018-05-24] MEDS: PIPERACILLIN-TAZOB 2.25GM 50 ML IV SCH ×3 (00:13→23:28)
[2018-05-24] MEDS: ACETAMINOPHEN 500 MG TAB PO PRN ×3 (02:24→21:26)
[2018-05-24 04:51] VITALS: BP 134/64
[2018-05-24] MEDS: CLINDAMYCIN 600MG IV 50 ML IV SCH ×3 (05:28→21:24)
[2018-05-24] MEDS: hydrALAZINE HCL 25 MG TAB PO SCH ×3 (05:29→21:23)
[2018-05-24] MEDS: ACCU-CHEK COMFORT CURVE STRIP VI SCH ×4 (06:39→22:07)
[2018-05-24] MEDS: InsuLIN REG 1unit/0.01ml Soln (100units/ml) SC SCH ×4 (06:40→22:08)
[2018-05-24 08:00] VITALS: BP 140/60
[2018-05-24 08:18] LABS: Albumin 3.3 g/dL (3.4-5.0); Calcium 7.6 mg/dL (8.5-10.1); Potassium 4.5 mmol/L (3.5-5.1)
[2018-05-24 08:21] LABS: BUN/Creatinine Ratio 4.3; Bilirubin, Total 0.5 mg/dL (0.2-1.0); Phosphorus 5.7 mg/dL (2.5-4.90); Total Protein 7.5 g/dL (6.4-8.2)
[2018-05-24 08:51] VITALS: BP 140/60
[2018-05-24] MEDS: METOPROLOL TARTRATE 50 MG TAB PO SCH ×2 (09:39→21:25)
[2018-05-24] MEDS: PANTOPRAZOLE 40 MG TAB PO SCH (09:39)
[2018-05-24] MEDS: ENOXAPARIN SOD 30 MG/0.3 ML SYRINGE SC SCH (09:39)
[2018-05-24] MEDS: NIFEdipine ER 30 MG TAB PO SCH (09:40)
[2018-05-24 13:00] VITALS: BP 144/76
[2018-05-24 17:00] VITALS: BP 132/68
[2018-05-24] MEDS: ATORVASTATIN 20 MG TAB PO SCH (21:24)
[2018-05-24 22:00] VITALS: BP 136/70
[2018-05-25 05:50] VITALS: BP 131/55
[2018-05-25] MEDS: CLINDAMYCIN 600MG IV 50 ML IV SCH ×3 (06:11→21:42)
[2018-05-25] MEDS: hydrALAZINE HCL 25 MG TAB PO SCH ×3 (06:11→21:43)
[2018-05-25 06:40] LABS: Albumin 3.2 g/dL (3.4-5.0); Calcium 7.1 mg/dL (8.5-10.1)
[2018-05-25 06:44] LABS: BUN/Creatinine Ratio 4.6; Bilirubin, Total 0.6 mg/dL (0.2-1.0); Total Protein 7.2 g/dL (6.4-8.2)
[2018-05-25] MEDS: ACCU-CHEK COMFORT CURVE STRIP VI SCH ×4 (07:01→21:44)
[2018-05-25] MEDS: InsuLIN REG 1unit/0.01ml Soln (100units/ml) SC SCH ×4 (07:02→21:44)
[2018-05-25 09:00] VITALS: BP 140/65
[2018-05-25] MEDS: PIPERACILLIN-TAZOB 2.25GM 50 ML IV SCH ×2 (09:33→21:42)
[2018-05-25] MEDS: ENOXAPARIN SOD 30 MG/0.3 ML SYRINGE SC SCH (09:34)
[2018-05-25] MEDS: PANTOPRAZOLE 40 MG TAB PO SCH (09:35)
[2018-05-25] MEDS: METOPROLOL TARTRATE 50 MG TAB PO SCH ×2 (09:35→21:43)
[2018-05-25] MEDS: NIFEdipine ER 30 MG TAB PO SCH (09:35)
[2018-05-25 13:00] VITALS: BP 130/56
[2018-05-25 17:00] VITALS: BP 133/69
[2018-05-25] MEDS: ATORVASTATIN 20 MG TAB PO SCH (21:43)
[2018-05-25 22:00] VITALS: BP 157/69
[2018-05-26 05:33] VITALS: BP 133/58
[2018-05-26] MEDS: CLINDAMYCIN 600MG IV 50 ML IV SCH ×4 (05:41→21:56)
[2018-05-26] MEDS: hydrALAZINE HCL 25 MG TAB PO SCH ×3 (05:42→21:57)
[2018-05-26 06:18] LABS: INR 0.97 (0.9-1.15); Partial Thromboplastin Time 29.4 sec (23.78-33.04); Prothrombin Time 10.4 sec (9.27-12.13)
[2018-05-26 06:30] LABS: BUN/Creatinine Ratio 4.7; Bilirubin, Total 0.4 mg/dL (0.2-1.0); Calcium 6.5 mg/dL (8.5-10.1); Total Protein 6.7 g/dL (6.4-8.2)
[2018-05-26 06:42] LABS: Potassium 5.7 mmol/L (3.5-5.1)
[2018-05-26] MEDS: InsuLIN REG 1unit/0.01ml Soln (100units/ml) SC SCH ×4 (07:00→22:37)
[2018-05-26] MEDS ORDERED: SODIUM CHL 0.9% 1000 ML BAG XX ONE (07:00)
[2018-05-26] MEDS ORDERED: DEXTROSE (50%) 50ML SYRG IV ONE (07:30)
[2018-05-26] MEDS ORDERED: InsuLIN REG 1unit/0.01ml Soln (100units/ml) IV ONE (07:30)
[2018-05-26] MEDS ORDERED: CALCIUM GLUC 4.65meq/50ml D5AE 50 ML IV ONE (07:30)
[2018-05-26] MEDS: ACCU-CHEK COMFORT CURVE STRIP VI SCH ×4 (08:28→22:00)
[2018-05-26 09:00] VITALS: BP 163/68
[2018-05-26] MEDS: METOPROLOL TARTRATE 50 MG TAB PO SCH ×2 (09:13→21:57)
[2018-05-26] MEDS: PANTOPRAZOLE 40 MG TAB PO SCH (09:13)
[2018-05-26] MEDS: NIFEdipine ER 30 MG TAB PO SCH (09:15)
[2018-05-26] MEDS: PIPERACILLIN-TAZOB 2.25GM 50 ML IV SCH ×2 (09:15→21:56)
[2018-05-26] MEDS: ENOXAPARIN SOD 30 MG/0.3 ML SYRINGE SC SCH ×2 (09:16→09:17)
[2018-05-26] MEDS: ACETAMINOPHEN 500 MG TAB PO PRN (11:06)
[2018-05-26 11:36] LABS: Albumin 3.2 g/dL (3.4-5.0); BUN/Creatinine Ratio 4.7; Calcium 7.1 mg/dL (8.5-10.1); Potassium 5.3 mmol/L (3.5-5.1)
[2018-05-26 11:38] LABS: Bilirubin, Total 0.4 mg/dL (0.2-1.0); Total Protein 7.2 g/dL (6.4-8.2)
[2018-05-26 13:00] VITALS: BP 158/72
[2018-05-26] MEDS ORDERED: fentaNYL CITRATE 100 MCG/2 ML VL ONE (13:59)
[2018-05-26] MEDS ORDERED: MIDAZOLAM HCL 1MG/1ML-2 ML VIAL ONE (13:59)
[2018-05-26] MEDS ORDERED: SODIUM CHL 0.9% 50 ML ONE (13:59)
[2018-05-26] MEDS ORDERED: LIDOCAINE 2%HCL (LOCAL ANESTH.) INJ 20ML MDV ONE (14:00)
[2018-05-26] MEDS ORDERED: IOHEXOL 350 MG/ML 100ML IJ ONE (14:00)
[2018-05-26] MEDS ORDERED: ANGIOMAX 250 MG VIAL IV ONE (14:19)
[2018-05-26 17:00] VITALS: BP 157/69
[2018-05-26] MEDS: CALCIUM ACETATE 667 MG CAP PO SCH (18:59)
[2018-05-26] MEDS: ATORVASTATIN 20 MG TAB PO SCH (21:56)
[2018-05-26 22:00] VITALS: BP 133/62
[2018-05-27 05:00] VITALS: BP 138/65
[2018-05-27] MEDS: CLINDAMYCIN 600MG IV 50 ML IV SCH ×2 (05:30→14:28)
[2018-05-27] MEDS: hydrALAZINE HCL 25 MG TAB PO SCH ×2 (05:31→14:29)
[2018-05-27 06:30] LABS: Albumin 3.1 g/dL (3.4-5.0); Calcium 7.5 mg/dL (8.5-10.1); Potassium 4.8 mmol/L (3.5-5.1)
[2018-05-27 06:34] LABS: BUN/Creatinine Ratio 3.4; Bilirubin, Total 0.5 mg/dL (0.2-1.0)
[2018-05-27] MEDS: ACCU-CHEK COMFORT CURVE STRIP VI SCH ×3 (07:10→17:00)
[2018-05-27] MEDS: InsuLIN REG 1unit/0.01ml Soln (100units/ml) SC SCH ×3 (07:11→17:00)
[2018-05-27 08:00] VITALS: BP 102/48
[2018-05-27 08:32] VITALS: BP 128/60
[2018-05-27] MEDS: PIPERACILLIN-TAZOB 2.25GM 50 ML IV SCH (09:02)
[2018-05-27] MEDS: CALCIUM ACETATE 667 MG CAP PO SCH ×2 (09:02→12:26)
[2018-05-27] MEDS: METOPROLOL TARTRATE 50 MG TAB PO SCH (09:03)
[2018-05-27] MEDS: NIFEdipine ER 30 MG TAB PO SCH (09:03)
[2018-05-27] MEDS: PANTOPRAZOLE 40 MG TAB PO SCH (09:04)
[2018-05-27] MEDS: ENOXAPARIN SOD 30 MG/0.3 ML SYRINGE SC SCH (09:04)
[2018-05-27 12:58] VITALS: BP 102/48
[2018-05-27 13:00] VITALS: BP 141/65
== END 2018-05-27 17:15 | disposition home or self-care (01) | DRG 570 ==
LOC: ER 03:40 → TELE 09:08 → TELE-WESTW 14:34
PROVIDERS: ADMIT Internal Medicine; ATTEND Family Medicine
PROC: 5A1D70Z Performance of Urinary Filtration, Intermittent, Less than 6 Hours Per Day (ICD-10-PCS; 2018-05-23)
PROC: B41G1ZZ Fluoroscopy of Left Lower Extremity Arteries using Low Osmolar Contrast (ICD-10-PCS; principal; 2018-05-26)
PROC: B41F1ZZ Fluoroscopy of Right Lower Extremity Arteries using Low Osmolar Contrast (ICD-10-PCS; 2018-05-26)
PROC: 5A1D70Z Performance of Urinary Filtration, Intermittent, Less than 6 Hours Per Day (ICD-10-PCS; 2018-05-26)
PROC: 0JBQ0ZZ Excision of Right Foot Subcutaneous Tissue and Fascia, Open Approach (ICD-10-PCS; 2018-05-27)
DX: L03.115 Cellulitis of right lower limb (principal); N18.6 End stage renal disease; L02.611 Cutaneous abscess of right foot; I13.2 Hypertensive heart and chronic kidney disease with heart failure and with stage 5 chronic kidney disease, or end stage renal disease; Z99.2 Dependence on renal dialysis; E78.00 Pure hypercholesterolemia, unspecified; E87.5 Hyperkalemia; E11.40 Type 2 diabetes mellitus with diabetic neuropathy, unspecified; E11.51 Type 2 diabetes mellitus with diabetic peripheral angiopathy without gangrene; E11.22 Type 2 diabetes mellitus with diabetic chronic kidney disease; D64.9 Anemia, unspecified; E11.65 Type 2 diabetes mellitus with hyperglycemia; I25.10 Atherosclerotic heart disease of native coronary artery without angina pectoris; R07.9 Chest pain, unspecified; L97.519 Non-pressure chronic ulcer of other part of right foot with unspecified severity; E11.621 Type 2 diabetes mellitus with foot ulcer; M77.30 Calcaneal spur, unspecified foot; M21.969 Unspecified acquired deformity of unspecified lower leg; E11.69 Type 2 diabetes mellitus with other specified complication; M21.40 Flat foot [pes planus] (acquired), unspecified foot; E66.01 Morbid (severe) obesity due to excess calories; I16.0 Hypertensive urgency; E83.39 Other disorders of phosphorus metabolism; D63.8 Anemia in other chronic diseases classified elsewhere; E11.628 Type 2 diabetes mellitus with other skin complications; I70.201 Unspecified atherosclerosis of native arteries of extremities, right leg; F41.9 Anxiety disorder, unspecified; E11.610 Type 2 diabetes mellitus with diabetic neuropathic arthropathy; E11.21 Type 2 diabetes mellitus with diabetic nephropathy; E78.5 Hyperlipidemia, unspecified; I50.9 Heart failure, unspecified; Z82.49 Family history of ischemic heart disease and other diseases of the circulatory system; Z83.3 Family history of diabetes mellitus; Z90.710 Acquired absence of both cervix and uterus; Z90.49 Acquired absence of other specified parts of digestive tract; Z88.6 Allergy status to analgesic agent; Z88.8 Allergy status to other drugs, medicaments and biological substances; Z68.35 Body mass index [BMI] 35.0-35.9, adult
CPT/HCPCS: 36415; 71045; 73620; 73700; 78315; 80053; 80061; 82962; 83036; 83605; 83880; 84100; 85025; 85610; 85652; 85730; 86850; 86900; 86901; 87040; 87077; 87186; 87205; 90935; 93926; 96365; 96366; 96368; 96372; 96375; A6257; G0378; J0610; J1642; J1815; J2250; J2543; J3490

== ENCOUNTER 2018-05-27 23:44 | Emergency (ER) | payer MEDICARE, MEDICAID ==
[~2018-05-27] VITALS: Ht 160 cm; Wt 99.8 kg
[~2018-05-27 23:44] MED LIST changes: +ASCO500T11 PO; +BISA-4 PO; +FERR1TAB5 PO
[2018-05-28] MEDS ORDERED: ONDANSETRON HCL 4 MG/2 ML VIAL IV ONE (01:45)
[2018-05-28] MEDS ORDERED: MORPHINE SULFATE 4 MG/ML SYR/VIAL IV ONE (01:45)
[2018-05-28 01:51] LABS: Alanine Aminotransferase 31 U/L (13-56); Albumin 3.6 g/dL (3.4-5.0); Anion Gap 15 (5-15); Aspartate Aminotransferase 29 U/L (15-37); BUN/Creatinine Ratio 2.4; Basophils # (auto) 0.1 uL; Basophils % (auto) 0.8 % (0.0-2.0); Blood Alcohol < 3.0 mg/dL (0-5); Blood Urea Nitrogen 12 mg/dL (7-18); Calcium 7.6 mg/dL (8.5-10.1); Carbon Dioxide 24 mmol/L (21-32); Chloride 97 mmol/L (98-107); Eosinophils # (auto) 0.2 uL; Eosinophils % (auto) 2.4 % (0.0-7.0); GFR African American 12 mL/min; GFR Non-African American 10 mL/min; Glucose 272 mg/dL (74-106); Hematocrit 37.9 % (36.0-46.0); Hemoglobin 12.7 g/dL (12.2-16.2); Lymphocytes # (auto) 1.9 uL; Lymphocytes % (auto) 27.6 % (10.0-50.0); Mean Corpuscular Hgb Conc. 33.6 g/dL (32.0-36.0); Mean Corpuscular Volume 98.1 fL (80.0-100.0); Monocytes # (auto) 0.5 uL; Monocytes % (auto) 6.6 % (0.0-12.0); Neutrophils # (auto) 4.4 uL; Neutrophils % (auto) 62.6 % (37.0-80.0); Potassium 4.1 mmol/L (3.5-5.1); Red Blood Cells 3.86 10^6/uL (4.0-5.20); Red Cell Distribution Width 15.6 % (11.8-14.3); Sodium 136 mmol/L (136-145)
[2018-05-28 01:57] LABS: INR 0.93 (0.9-1.15); Partial Thromboplastin Time 25.2 sec (23.78-33.04)
[2018-05-28 01:58] LABS: Platelet Count (auto) 219 10^3/uL (140-450)
[2018-05-28 02:00] LABS: Alkaline Phosphatase 155 U/L (45-117); Bilirubin, Total 0.5 mg/dL (0.2-1.0); Total Protein 8.6 g/dL (6.4-8.2)
[2018-05-28 09:30] VITALS: BP 132/66
== END 2018-05-28 10:15 | disposition home or self-care (01) ==
LOC: ER 23:44
DX: R41.82 Altered mental status, unspecified (principal); I24.9 Acute ischemic heart disease, unspecified; E11.22 Type 2 diabetes mellitus with diabetic chronic kidney disease; I12.0 Hypertensive chronic kidney disease with stage 5 chronic kidney disease or end stage renal disease; N18.6 End stage renal disease; E78.5 Hyperlipidemia, unspecified; Z99.2 Dependence on renal dialysis; Z79.4 Long term (current) use of insulin; Z90.49 Acquired absence of other specified parts of digestive tract; Z90.710 Acquired absence of both cervix and uterus; Z88.6 Allergy status to analgesic agent; Z79.899 Other long term (current) drug therapy
CPT/HCPCS: 36415; 51702; 70450; 71045; 74018; 74176; 80053; 80320; 82962; 84484; 85025; 85379; 85610; 85730; 87040; 94761; 96374; 96375; 99284; J2270; J2405

== ENCOUNTER 2018-06-10 18:53 | Emergency (ER) | payer MEDICARE, MEDICAID ==
[~2018-06-10] VITALS: Ht 165.1 cm; Wt 90.7 kg
[2018-06-10 20:51] VITALS: BP 197/75
[2018-06-10 21:56] LABS: Basophils # (auto) 0 uL; Basophils % (auto) 0.5 % (0.0-2.0); Eosinophils # (auto) 0.3 uL; Eosinophils % (auto) 3.9 % (0.0-7.0); Hematocrit 30.3 % (36.0-46.0); Hemoglobin 10.1 g/dL (12.2-16.2); Lymphocytes # (auto) 2.1 uL; Lymphocytes % (auto) 31.9 % (10.0-50.0); Mean Corpuscular Hemoglobin 32.4 pg (28.0-32.0); Mean Corpuscular Hgb Conc. 33.3 g/dL (32.0-36.0); Mean Corpuscular Volume 97.4 fL (80.0-100.0); Monocytes # (auto) 0.3 uL; Monocytes % (auto) 5.3 % (0.0-12.0); Neutrophils # (auto) 3.8 uL; Neutrophils % (auto) 58.4 % (37.0-80.0); Platelet Count (auto) 183 10^3/uL (140-450); Red Blood Cells 3.11 10^6/uL (4.0-5.20); Red Cell Distribution Width 14.5 % (11.8-14.3); White Blood Cell 6.4 10^3/uL (4.4-10.8)
[2018-06-10 22:13] LABS: Albumin 3.1 g/dL (3.4-5.0); BUN/Creatinine Ratio 3.9; Calcium 7.2 mg/dL (8.5-10.1); Magnesium 2.3 mg/dL (1.6-2.6); Potassium 3.4 mmol/L (3.5-5.1)
[2018-06-10 22:18] LABS: Bilirubin, Total 0.3 mg/dL (0.2-1.0); Total Protein 7.1 g/dL (6.4-8.2)
[2018-06-10 22:31] LABS: INR 1.07 (0.9-1.15); Partial Thromboplastin Time 25.5 sec (23.78-33.04); Prothrombin Time 10.8 sec (9.27-12.13)
[2018-06-10] MEDS ORDERED: MORPHINE SULFATE 4 MG/ML SYR/VIAL IV ONE ×2 (23:15)
[2018-06-10] MEDS ORDERED: ONDANSETRON HCL 4 MG/2 ML VIAL IV ONE ×2 (23:15)
== END 2018-06-11 00:16 | disposition home or self-care (01) ==
LOC: EDBD 18:53 → ER 18:53
DX: S70.02XA Contusion of left hip, initial encounter (principal); S70.01XA Contusion of right hip, initial encounter; R51 Headache; E78.5 Hyperlipidemia, unspecified; E11.22 Type 2 diabetes mellitus with diabetic chronic kidney disease; I12.0 Hypertensive chronic kidney disease with stage 5 chronic kidney disease or end stage renal disease; N18.6 End stage renal disease; Z88.5 Allergy status to narcotic agent; Z88.8 Allergy status to other drugs, medicaments and biological substances; Z79.82 Long term (current) use of aspirin; Z79.4 Long term (current) use of insulin; Z79.899 Other long term (current) drug therapy; Z90.49 Acquired absence of other specified parts of digestive tract; Z90.710 Acquired absence of both cervix and uterus; Z95.0 Presence of cardiac pacemaker; X58.XXXA Exposure to other specified factors, initial encounter; Y93.89 Activity, other specified; Y99.8 Other external cause status; Y92.89 Other specified places as the place of occurrence of the external cause
CPT/HCPCS: 36415; 70450; 71045; 72192; 80053; 83735; 83880; 84443; 84484; 85025; 85610; 85730; 94761; 96374; 96375; 99284; J2270; J2405

== ENCOUNTER 2019-02-09 18:40 | Inpatient (IN) | payer MEDICARE, MEDICAID ==
[~2019-02-09] VITALS: Ht 162.6 cm; Wt 101.0 kg
[~2019-02-09 18:40] MED LIST changes: -BISA-4 PO; +BISA-60 PO; -CLON0.1T PO; -DOCU-94 PO; -ERGO1CAP23 PO; +FERR1TAB17 PO; -FERR1TAB5 PO; -HYD25T PO; -MULT-647 PO; -NIF30XLT PO; -ONDA4TAB5 PO
[2019-02-09 21:14] LABS: Basophils # (auto) 0.1 uL; Basophils % (auto) 0.8 % (0.0-2.0); Eosinophils # (auto) 0.2 uL; Eosinophils % (auto) 3.5 % (0.0-7.0); Hematocrit 36.8 % (36.0-46.0); Hemoglobin 12.2 g/dL (12.2-16.2); Lymphocytes # (auto) 1.8 uL; Lymphocytes % (auto) 28.4 % (10.0-50.0); Mean Corpuscular Hemoglobin 32.2 pg (28.0-32.0); Mean Corpuscular Hgb Conc. 33.1 g/dL (32.0-36.0); Mean Corpuscular Volume 97.4 fL (80.0-100.0); Monocytes # (auto) 0.5 uL; Monocytes % (auto) 7.6 % (0.0-12.0); Neutrophils # (auto) 3.8 uL; Neutrophils % (auto) 59.7 % (37.0-80.0); Platelet Count (auto) 164 10^3/uL (140-450); Red Blood Cells 3.78 10^6/uL (4.0-5.20); White Blood Cell 6.3 10^3/uL (4.4-10.8)
[2019-02-09 21:32] LABS: Potassium 5.3 mmol/L (3.5-5.1)
[2019-02-09 21:36] LABS: Albumin 3.7 g/dL (3.4-5.0); BUN/Creatinine Ratio 5.8
[2019-02-09 21:38] LABS: Bilirubin, Total 0.3 mg/dL (0.2-1.0); Total Protein 7.9 g/dL (6.4-8.2)
[2019-02-10] MEDS ORDERED: ONDANSETRON HCL 4 MG/2 ML VIAL IV PRN (00:30)
[2019-02-10] MEDS ORDERED: DEXTROSE (50%) 50ML SYRG IV PRN (00:30)
[2019-02-10] MEDS ORDERED: SODIUM ZIRCONIUM CYCL 10 GM PAK PO ONE (00:30)
[2019-02-10] MEDS ORDERED: cloNIDine HCL 0.1 MG TAB PO PRN (00:30)
[2019-02-10] MEDS ORDERED: ACETAMINOPHEN 325 MG TAB PO PRN (00:30)
[2019-02-10] MEDS ORDERED: TEMAZEPAM 15 MG CAP PO PRN (00:30)
[2019-02-10 03:10] VITALS: BP 160/70
--- NOTE | 2019-02-10 04:00 | NUR ---
MS admit from ER JUDI HOLT admitted to [facility]. Patient oriented to Lizzie Figueroa, primary RN, unit, room, bed, and unit policies regarding patient care and visiting hours. Patient weighed by bed scale and encouraged to call if they need something. All questions and concerns addressed, patient verbalized understanding. Patient is primarily Upper Sorbian speaking. RN PATIENT SERVICES translated POC to patient, patient verbalized understanding.
[2019-02-10] MEDS ORDERED: INFLUENZA QUAD 2019-2020 0.5ml SYRG IM ONE (04:15)
--- NOTE | 2019-02-10 04:16 | NUR ---
MRSA NASAL SWAB SAMPLE SENT TO LAB
[2019-02-10 05:00] VITALS: BP 160/70
[2019-02-10] MEDS: InsuLIN REG 1unit/0.01ml Soln (100units/ml) SC SCH ×2 (06:00→11:29)
[2019-02-10] MEDS: ACCU-CHEK COMFORT CURVE STRIP VI SCH ×2 (06:19→11:30)
--- NOTE | 2019-02-10 06:50 | NUR ---
ROOM TRANSFER PATIENT TRANSPORTED TO ROOM 282 FROM ROOM 297A WITH ALL PERSONAL BELONGINGS. NO S/S OF DISTRESS NOTED. PATIENT HAS A HX OF ESBL IN THE URINE.
--- NOTE | 2019-02-10 07:30 | NUR ---
Opening Shift Note Assumed care of patient, awake, alert, and oriented x4, and sitting at the edge of bed eating breakfast. No S/S of distress/SOB, but patient is reporting right foot pain of 5/10. IV is 22 gauge and is in right wrist, asymptomatic, intact, patent, and saline locked. Bed is locked and in lowest position and call light is within reach. Instructed on POC and to call for assist PRN, and patient verbalized understanding. Will continue to monitor for changes Q1hr and PRN.
[2019-02-10 08:00] VITALS: BP 149/64
[2019-02-10 08:15] VITALS: BP 149/64
[2019-02-10 08:16] LABS: BUN/Creatinine Ratio 5.5; Calcium 6.7 mg/dL (8.5-10.1); Potassium 4.9 mmol/L (3.5-5.1)
[2019-02-10] MEDS ORDERED: ASPirin 81 mg TAB PO SCH (10:00)
[2019-02-10] MEDS ORDERED: PANTOPRAZOLE 40 MG TAB PO SCH (10:00)
[2019-02-10] MEDS ORDERED: METOPROLOL TARTRATE 50 MG TAB PO SCH (10:00)
[2019-02-10] MEDS ORDERED: B-COMPLEX W/ C & FOLIC ACID(NEPHROVITE TAB) PO SCH (11:15)
--- NOTE | 2019-02-10 11:15 | NUR ---
Order received to hold all BP medications day of dialysis, given by Dr. Deleon, [employer] Architect at 1115.
--- NOTE | 2019-02-10 11:16 | NUR ---
Dr. Deleon, Surgical Asst, at bedside; new orders received.
[2019-02-10] MEDS ORDERED: CALCIUM ACETATE 667 MG CAP PO SCH (12:00)
--- NOTE | 2019-02-10 12:00 | NUR ---
Dr. Wise, Hospitalist, at bedside; new orders received.
[2019-02-10 12:23] VITALS: BP 169/83
[2019-02-10 13:01] LABS: Phosphorus 6.6 mg/dL (2.5-4.90); Uric Acid 5.4 mg/dL (2.6-6.0)
[2019-02-10 13:50] VITALS: BP 169/83
--- NOTE | 2019-02-10 15:43 | NUR ---
Discharge instructions given as ordered. Encourage to follow up with PMD as instructed. All questions and concerns addressed. Patient verbalized understanding. Medication reconciliation form completed and copy given to patient. Home medications held in Pharmacy returned to patient. IV removed with catheter intact, pressure dressing applied. Patient taken to vehicle via wheelchair with all personal belongings, accompanied by staff and family member. No distress noted at time of departure.
[2019-02-10] MEDS ORDERED: ATORVASTATIN 20 MG TAB PO SCH (22:00)
[2019-02-11] MEDS ORDERED: SODIUM CHL 0.9% 1000 ML BAG XX ONE (07:00)
== END 2019-02-10 16:00 | disposition home or self-care (01) | DRG 304 ==
LOC: ER 18:50 → OVERFLOW 18:51 → WEST WING 02-10 03:21
PROVIDERS: ADMIT Nurse Practitioner; ATTEND Family Medicine
DX: I16.0 Hypertensive urgency (principal); N18.6 End stage renal disease; E11.22 Type 2 diabetes mellitus with diabetic chronic kidney disease; E11.621 Type 2 diabetes mellitus with foot ulcer; E11.628 Type 2 diabetes mellitus with other skin complications; E11.65 Type 2 diabetes mellitus with hyperglycemia; I13.2 Hypertensive heart and chronic kidney disease with heart failure and with stage 5 chronic kidney disease, or end stage renal disease; E78.00 Pure hypercholesterolemia, unspecified; E66.9 Obesity, unspecified; E78.5 Hyperlipidemia, unspecified; E87.5 Hyperkalemia; I25.10 Atherosclerotic heart disease of native coronary artery without angina pectoris; F41.9 Anxiety disorder, unspecified; I50.9 Heart failure, unspecified; D64.9 Anemia, unspecified; L97.519 Non-pressure chronic ulcer of other part of right foot with unspecified severity; Z95.0 Presence of cardiac pacemaker; Z98.61 Coronary angioplasty status; Z68.38 Body mass index [BMI] 38.0-38.9, adult; Z88.1 Allergy status to other antibiotic agents; Z88.5 Allergy status to narcotic agent; Z88.8 Allergy status to other drugs, medicaments and biological substances; Z82.49 Family history of ischemic heart disease and other diseases of the circulatory system; Z83.3 Family history of diabetes mellitus; Z90.710 Acquired absence of both cervix and uterus; Z90.49 Acquired absence of other specified parts of digestive tract; Z28.21 Immunization not carried out because of patient refusal
CPT/HCPCS: 36415; 71045; 73700; 80048; 80053; 82306; 82962; 83036; 83880; 83970; 84100; 84550; 85025; 87040; 87081; 87205; 93005; G0378; J1815

== ENCOUNTER → 2019-11-29 | Outpatient (CLI) | payer MEDICARE, MEDICAID | END | disposition home or self-care (01) | LOC: LAB 15:00 | PROVIDERS: ATTEND Podiatrist | DX: E11.52 Type 2 diabetes mellitus with diabetic peripheral angiopathy with gangrene (principal); I96 Gangrene, not elsewhere classified; L08.9 Local infection of the skin and subcutaneous tissue, unspecified; E11.621 Type 2 diabetes mellitus with foot ulcer ==

== ENCOUNTER → 2020-01-21 | Outpatient (CLI) | payer MEDICARE, MEDICAID ==
[2020-01-21 09:34] LABS: Albumin 3.6 g/dL (3.4-5.0); Calcium 7.3 mg/dL (8.5-10.1)
[2020-01-21 09:38] LABS: BUN/Creatinine Ratio 6.2; Bilirubin, Total 0.4 mg/dL (0.2-1.0); Total Protein 7.8 g/dL (6.4-8.2)
[2020-01-21 10:06] LABS: Potassium 6.1 mmol/L (3.5-5.1)
== END | disposition home or self-care (01) ==
LOC: LAB 08:45
PROVIDERS: ATTEND Podiatrist
DX: E11.621 Type 2 diabetes mellitus with foot ulcer (principal)
CPT/HCPCS: 36415; 80053; 83036

== ENCOUNTER 2020-07-04 15:54 | Inpatient (IN) | payer MEDICARE, MEDICAID ==
[~2020-07-04] VITALS: Ht 162.6 cm; Wt 88.1 kg
[~2020-07-04 15:54] MED LIST changes: +AMLO-483 PO; +ASPI-325 PO; +CEPH500C PO; +INSU70IN3 SC; +LISI-646 PO; +MET50T PO
[2020-07-04] MEDS ORDERED: PANTOPRAZOLE 40 MG/10 ML VIAL INJ IV STA (16:31)
[2020-07-04] MEDS ORDERED: ONDANSETRON HCL 4 MG/2 ML VIAL IV ONE (16:45)
[2020-07-04] MEDS ORDERED: MORPHINE SULFATE 4 MG/ML SYR/VIAL IV ONE (16:45)
[2020-07-04 17:13] LABS: Basophils # (auto) 0 10 ^3/uL (0-0.2); Basophils % (auto) 0.7 % (0.0-2.0); Eosinophils # (auto) 0.1 10 ^3/uL (0-0.8); Eosinophils % (auto) 2.2 % (0.0-7.0); Hematocrit 30.4 % (36.0-46.0); Hemoglobin 10.1 g/dL (12.2-16.2); Lymphocytes # (auto) 1.1 10 ^3/uL (0.4-5.4); Lymphocytes % (auto) 16.5 % (10.0-50.0); Mean Corpuscular Hgb Conc. 33.1 g/dL (32.0-36.0); Mean Corpuscular Volume 90.8 fL (80.0-100.0); Monocytes # (auto) 0.3 10 ^3/uL (0-1.3); Monocytes % (auto) 4.6 % (0.0-12.0); Neutrophils # (auto) 4.9 10 ^3/uL (1.6-8.6); Nucleated Red Blood Cells % 0.1 %; Platelet Count (auto) 212 10^3/uL (140-450); Red Blood Cells 3.35 10^6/uL (4.0-5.20); Red Cell Distribution Width 17.8 % (11.8-14.3); White Blood Cell 6.4 10^3/uL (4.4-10.8)
[2020-07-04 17:30] LABS: Albumin 3.8 g/dL (3.4-5.0); BUN/Creatinine Ratio 5.9; Calcium 7.7 mg/dL (8.5-10.1); Potassium 4.3 mmol/L (3.5-5.1)
[2020-07-04 17:37] LABS: Bilirubin, Total 0.8 mg/dL (0.2-1.0); Total Protein 8.7 g/dL (6.4-8.2)
[2020-07-04] MEDS ORDERED: MORPHINE SULF INJ 2 MG/ML SYRINGE 1ML IV PRN (19:15)
[2020-07-04] MEDS ORDERED: NITROGLYCERIN 0.4 MG SL TAB SL PRN (19:15)
[2020-07-04] MEDS ORDERED: DEXTROSE (50%) 50ML SYRG IV PRN (19:15)
[2020-07-04] MEDS ORDERED: hydrALAZINE HCL 20 MG/ML VL IV ONE (20:30)
[2020-07-04] MEDS: ACCU-CHEK COMFORT CURVE STRIP VI SCH (22:09)
[2020-07-04] MEDS: InsuLIN REG 1unit/0.01ml Soln (100units/ml) SC SCH (22:18)
[2020-07-04] MEDS: PANTOPRAZOLE 40 MG TAB PO SCH (22:18)
[2020-07-04] MEDS: METOPROLOL TARTRATE 50 MG TAB PO SCH (23:28)
[2020-07-05 00:04] VITALS: BP 144/65
[2020-07-05 05:00] VITALS: BP 128/78
[2020-07-05] MEDS: InsuLIN REG 1unit/0.01ml Soln (100units/ml) SC SCH ×4 (05:17→22:21)
[2020-07-05] MEDS: ACCU-CHEK COMFORT CURVE STRIP VI SCH ×4 (05:18→22:21)
[2020-07-05] MEDS: SUCRALFATE 1 GM/10 ML ORAL SUSP GT SCH ×2 (05:18→17:00)
[2020-07-05 08:38] VITALS: BP 162/81
[2020-07-05] MEDS: LISINOPRIL 20 MG TAB PO SCH (09:55)
[2020-07-05] MEDS: METOPROLOL TARTRATE 50 MG TAB PO SCH ×2 (09:56→22:20)
[2020-07-05] MEDS: PANTOPRAZOLE 40 MG TAB PO SCH ×2 (09:56→22:20)
[2020-07-05] MEDS ORDERED: amLODIPine BESYLATE 5 MG TAB PO SCH (10:00)
[2020-07-05 10:35] LABS: Basophils # (auto) 0.1 10 ^3/uL (0-0.2); Eosinophils # (auto) 0 10 ^3/uL (0-0.8); Eosinophils % (auto) 0.7 % (0.0-7.0); Hematocrit 27.8 % (36.0-46.0); Hemoglobin 9.3 g/dL (12.2-16.2); Lymphocytes # (auto) 0.9 10 ^3/uL (0.4-5.4); Lymphocytes % (auto) 13.5 % (10.0-50.0); Mean Corpuscular Hemoglobin 30.5 pg (28.0-32.0); Mean Corpuscular Hgb Conc. 33.5 g/dL (32.0-36.0); Monocytes # (auto) 0.3 10 ^3/uL (0-1.3); Monocytes % (auto) 3.7 % (0.0-12.0); Neutrophils # (auto) 5.5 10 ^3/uL (1.6-8.6); Neutrophils % (auto) 81.1 % (37.0-80.0); Platelet Count (auto) 187 10^3/uL (140-450); Red Blood Cells 3.06 10^6/uL (4.0-5.20); Red Cell Distribution Width 17.5 % (11.8-14.3); White Blood Cell 6.8 10^3/uL (4.4-10.8)
[2020-07-05 10:43] LABS: Albumin 3.5 g/dL (3.4-5.0); Calcium 7.6 mg/dL (8.5-10.1)
[2020-07-05 10:45] LABS: BUN/Creatinine Ratio 6.2; Bilirubin, Total 0.7 mg/dL (0.2-1.0); Total Protein 7.8 g/dL (6.4-8.2)
[2020-07-05 10:51] LABS: Potassium 5.6 mmol/L (3.5-5.1)
[2020-07-05 12:40] VITALS: BP 186/92
[2020-07-05 16:42] VITALS: BP 215/85
[2020-07-05] MEDS ORDERED: EPOETIN ALFA-EPBX 10,000 UNIT/1ML VIAL SC ONE (21:00)
[2020-07-05 22:00] VITALS: BP 172/82
[2020-07-05] MEDS: cloNIDine HCL 0.1 MG TAB PO SCH (22:20)
[2020-07-05] MEDS: hydrALAZINE HCL 20 MG/ML VL IV PRN (23:54)
[2020-07-06 01:02] VITALS: BP 129/47
[2020-07-06 05:00] VITALS: BP 143/62
[2020-07-06] MEDS: ACCU-CHEK COMFORT CURVE STRIP VI SCH ×4 (06:35→22:31)
[2020-07-06] MEDS: InsuLIN REG 1unit/0.01ml Soln (100units/ml) SC SCH ×4 (06:35→22:31)
[2020-07-06] MEDS: SUCRALFATE 1 GM/10 ML ORAL SUSP GT SCH ×2 (06:35→17:00)
[2020-07-06] MEDS ORDERED: SODIUM CHL 0.9% 1000 ML BAG XX ONE (07:00)
[2020-07-06 09:00] VITALS: BP 150/71
[2020-07-06 09:27] LABS: Hepatitis B Surface Antibody Negative
[2020-07-06] MEDS: amLODIPine BESYLATE 5 MG TAB PO SCH (09:44)
[2020-07-06] MEDS: METOPROLOL TARTRATE 50 MG TAB PO SCH ×2 (09:44→22:30)
[2020-07-06] MEDS: cloNIDine HCL 0.1 MG TAB PO SCH ×2 (09:44→22:29)
[2020-07-06] MEDS: PANTOPRAZOLE 40 MG TAB PO SCH ×2 (09:45→22:30)
[2020-07-06] MEDS: LISINOPRIL 20 MG TAB PO SCH (09:45)
[2020-07-06 10:01] LABS: Hepatitis A Total Antibody Positive
[2020-07-06 13:00] VITALS: BP 155/79
[2020-07-06 13:09] LABS: Hepatitis B Core Total AB Negative; Hepatitis B Surface Antigen Negative (Negative); Hepatitis C Antibody Negative (Negative)
[2020-07-06] MEDS ORDERED: LACTULOSE 20Gm/30ML SOLN PO ONE (13:15)
[2020-07-06 17:00] VITALS: BP 155/69
[2020-07-06] MEDS ORDERED: EPOETIN ALFA-EPBX 10,000 UNIT/1ML VIAL SC ONE (21:00)
[2020-07-06 22:00] VITALS: BP 146/57
[2020-07-06] MEDS: APIXABAN 5 MG TAB PO SCH (22:29)
[2020-07-07] VITALS (8 sets, daily range): BP systolic 141–161; BP diastolic 64–71
[2020-07-07] MEDS: SUCRALFATE 1 GM/10 ML ORAL SUSP GT SCH ×2 (06:54→16:29)
[2020-07-07] MEDS: InsuLIN REG 1unit/0.01ml Soln (100units/ml) SC SCH ×4 (06:58→22:44)
[2020-07-07] MEDS: ACCU-CHEK COMFORT CURVE STRIP VI SCH ×4 (07:00→22:44)
[2020-07-07] MEDS ORDERED: SODIUM CHL 0.9% 1000 ML BAG XX ONE (07:00)
[2020-07-07 07:21] LABS: Basophils # (auto) 0 10 ^3/uL (0-0.2); Basophils % (auto) 0.7 % (0.0-2.0); Eosinophils # (auto) 0.2 10 ^3/uL (0-0.8); Eosinophils % (auto) 3.7 % (0.0-7.0); Hematocrit 27.7 % (36.0-46.0); Hemoglobin 9.3 g/dL (12.2-16.2); Lymphocytes # (auto) 1.3 10 ^3/uL (0.4-5.4); Lymphocytes % (auto) 20.7 % (10.0-50.0); Mean Corpuscular Hemoglobin 30.2 pg (28.0-32.0); Mean Corpuscular Hgb Conc. 33.5 g/dL (32.0-36.0); Mean Corpuscular Volume 90.2 fL (80.0-100.0); Monocytes # (auto) 0.4 10 ^3/uL (0-1.3); Monocytes % (auto) 6.4 % (0.0-12.0); Neutrophils # (auto) 4.4 10 ^3/uL (1.6-8.6); Neutrophils % (auto) 68.5 % (37.0-80.0); Nucleated Red Blood Cells % 0.1 %; Platelet Count (auto) 201 10^3/uL (140-450); Red Blood Cells 3.07 10^6/uL (4.0-5.20); Red Cell Distribution Width 17.2 % (11.8-14.3); White Blood Cell 6.4 10^3/uL (4.4-10.8)
[2020-07-07 07:45] LABS: Potassium 4.7 mmol/L (3.5-5.1)
[2020-07-07 08:15] LABS: Albumin 3.2 g/dL (3.4-5.0); BUN/Creatinine Ratio 5.2; Bilirubin, Total 0.6 mg/dL (0.2-1.0); Calcium 7.5 mg/dL (8.5-10.1); Total Protein 7.2 g/dL (6.4-8.2)
[2020-07-07] MEDS: amLODIPine BESYLATE 5 MG TAB PO SCH (10:00)
[2020-07-07] MEDS: APIXABAN 5 MG TAB PO SCH ×2 (10:00→22:45)
[2020-07-07] MEDS: METOPROLOL TARTRATE 50 MG TAB PO SCH ×2 (10:00→22:45)
[2020-07-07] MEDS: LISINOPRIL 20 MG TAB PO SCH (10:00)
[2020-07-07] MEDS: cloNIDine HCL 0.1 MG TAB PO SCH ×2 (10:00→22:46)
[2020-07-07] MEDS: PANTOPRAZOLE 40 MG TAB PO SCH ×2 (10:00→22:44)
[2020-07-07 11:14] LABS: INR 1.09 (0.9-1.15); Partial Thromboplastin Time 29.2 sec (23.0-31.2)
[2020-07-07] MEDS ORDERED: diphenhdrAMINE HCL 50 MG/1 ML VL ONE (11:50)
[2020-07-07] MEDS ORDERED: SODIUM CHLORIDE LOCK 10 ML ONE (11:50)
[2020-07-07] MEDS ORDERED: MIDAZOLAM HCL 5 MG/ML-1ML VIAL ONE (11:50)
[2020-07-07] MEDS ORDERED: LIDOCAINE VISCOUS 2% 15ML UD ONE (11:50)
[2020-07-07] MEDS ORDERED: fentaNYL CITRATE 100 MCG/2 ML VL ONE (11:51)
[2020-07-07] MEDS: hydrALAZINE HCL 20 MG/ML VL IV PRN (13:58)
[2020-07-07] MEDS ORDERED: ACETAMINOPHEN 325 MG TAB PO PRN (15:00)
[2020-07-07] MEDS ORDERED: EPOETIN ALFA-EPBX 10,000 UNIT/1ML VIAL SC ONE (21:00)
[2020-07-08 05:00] VITALS: BP 145/58
[2020-07-08] MEDS: SUCRALFATE 1 GM/10 ML ORAL SUSP GT SCH ×2 (06:54→17:14)
[2020-07-08] MEDS: ACCU-CHEK COMFORT CURVE STRIP VI SCH ×3 (06:55→17:09)
[2020-07-08] MEDS: InsuLIN REG 1unit/0.01ml Soln (100units/ml) SC SCH ×3 (07:02→17:12)
[2020-07-08] MEDS: cloNIDine HCL 0.1 MG TAB PO SCH (08:50)
[2020-07-08] MEDS: amLODIPine BESYLATE 5 MG TAB PO SCH (08:51)
[2020-07-08] MEDS: PANTOPRAZOLE 40 MG TAB PO SCH (08:51)
[2020-07-08] MEDS: APIXABAN 5 MG TAB PO SCH (08:51)
[2020-07-08] MEDS: METOPROLOL TARTRATE 50 MG TAB PO SCH (08:52)
[2020-07-08] MEDS: LISINOPRIL 20 MG TAB PO SCH (08:52)
[2020-07-08 09:00] VITALS: BP 164/70
[2020-07-08 13:00] VITALS: BP 157/69
[2020-07-08 16:05] VITALS: BP 154/64
[2020-07-08 17:00] VITALS: BP 155/66
== END 2020-07-08 18:30 | disposition home or self-care (01) | DRG 383 ==
LOC: ER 15:54 → TELE 19:11 → TELE-WESTW 22:30
PROVIDERS: ADMIT Nurse Practitioner Acute Care; ATTEND Internal Medicine Nephrology
PROC: 5A1D70Z Performance of Urinary Filtration, Intermittent, Less than 6 Hours Per Day (ICD-10-PCS; principal; 2020-07-05)
PROC: 0DB98ZX Excision of Duodenum, Via Natural or Artificial Opening Endoscopic, Diagnostic (ICD-10-PCS; 2020-07-07)
PROC: 0DB68ZX Excision of Stomach, Via Natural or Artificial Opening Endoscopic, Diagnostic (ICD-10-PCS; 2020-07-07)
DX: K25.9 Gastric ulcer, unspecified as acute or chronic, without hemorrhage or perforation (principal); N18.6 End stage renal disease; J90 Pleural effusion, not elsewhere classified; K29.70 Gastritis, unspecified, without bleeding; Z99.2 Dependence on renal dialysis; E66.01 Morbid (severe) obesity due to excess calories; E11.621 Type 2 diabetes mellitus with foot ulcer; L97.519 Non-pressure chronic ulcer of other part of right foot with unspecified severity; D63.8 Anemia in other chronic diseases classified elsewhere; D50.9 Iron deficiency anemia, unspecified; E11.21 Type 2 diabetes mellitus with diabetic nephropathy; E87.5 Hyperkalemia; R16.0 Hepatomegaly, not elsewhere classified; E11.65 Type 2 diabetes mellitus with hyperglycemia; R94.5 Abnormal results of liver function studies; E78.5 Hyperlipidemia, unspecified; E11.22 Type 2 diabetes mellitus with diabetic chronic kidney disease; I25.10 Atherosclerotic heart disease of native coronary artery without angina pectoris; Z20.822 Contact with and (suspected) exposure to COVID-19; K44.9 Diaphragmatic hernia without obstruction or gangrene; I50.9 Heart failure, unspecified; Z68.33 Body mass index [BMI] 33.0-33.9, adult; Z79.01 Long term (current) use of anticoagulants; Z79.899 Other long term (current) drug therapy; Z82.49 Family history of ischemic heart disease and other diseases of the circulatory system; Z79.4 Long term (current) use of insulin; Z83.3 Family history of diabetes mellitus; Z86.16 Personal history of COVID-19; Z86.718 Personal history of other venous thrombosis and embolism; Z90.710 Acquired absence of both cervix and uterus; Z95.5 Presence of coronary angioplasty implant and graft; Z88.5 Allergy status to narcotic agent; E11.51 Type 2 diabetes mellitus with diabetic peripheral angiopathy without gangrene; I11.0 Hypertensive heart disease with heart failure
CPT/HCPCS: 36415; 43239; 73700; 74176; 76705; 80053; 82150; 82306; 82962; 83036; 83690; 83880; 83970; 84100; 85025; 85610; 85730; 86038; 86704; 86706; 86708; 86803; 87081; 87340; 87426; 90935; 93005; 96372; 96374; 96375; C9113; G0378; J1815; J2250; J2405

== ENCOUNTER 2024-06-23 12:12 | Inpatient (IN) | payer MEDICARE, MEDICAID ==
[~2024-06-23] VITALS: Ht 162.6 cm; Wt 89.1 kg
[~2024-06-23 12:12] MED LIST changes: -AMLO-483 PO; +AMLO1TAB21 PO; +AMLO1TAB23 PO; -ASPI-266 PO; +ASPI81TA28 PO; +LACT10PA2 PO; +LEVO500T31 PO; -LISI-646 PO; +LISI20TA56 PO; +METR500T PO; +NIFE1TAB31 PO; +SUCR1TAB PO
[2024-06-23 13:37] LABS: Basophils # (auto) 0 10 ^3/uL (0-0.2); Basophils % (auto) 0.4 % (0.0-2.0); Eosinophils # (auto) 0.2 10 ^3/uL (0-0.8); Eosinophils % (auto) 1.4 % (0.0-7.0); Hematocrit 35.2 % (36.0-46.0); Hemoglobin 11.4 g/dL (12.2-16.2); Lymphocytes # (auto) 1.1 10 ^3/uL (0.4-5.4); Lymphocytes % (auto) 8.7 % (10.0-50.0); Mean Corpuscular Hgb Conc. 32.2 g/dL (32.0-36.0); Monocytes # (auto) 0.6 10 ^3/uL (0-1.3); Monocytes % (auto) 4.5 % (0.0-12.0); Neutrophils # (auto) 10.7 10 ^3/uL (1.6-8.6); Platelet Count (auto) 290 10^3/uL (140-450); Red Blood Cells 3.92 10^6/uL (4.0-5.20); Red Cell Distribution Width 14.5 % (11.8-14.3); White Blood Cell 12.5 10^3/uL (4.4-10.8)
[2024-06-23 13:46] VITALS: PULSE 86; RESP 18; O2SAT 97
[2024-06-23 13:57] LABS: INR 0.96 (0.9-1.15); Partial Thromboplastin Time 34.2 SEC (24.5-34.5); Prothrombin Time 10.2 sec (9.3-11.8)
--- NOTE | 2024-06-23 13:57 | DVH ---
EXAMINATION: CT CT R FOOT WO CONTRAST INDICATION: pain COMPARISON: CT R FOOT WO CONTRAST on DOS: 07/05/20 TECHNIQUE: CT of the right foot was performed with contrast. Volume transverse images were obtained r econstructed in multiple planes using bone and soft tissue algorithms. Radiation Dose Information: CT Dose: CTDI volume is 7.75 mGy. Dose-length product is 237.11 mGy*cm FINDINGS/IMPRESSION: No acute fracture or dislocation. Degenerative changes of the forefoot. Diffuse severe soft-tissue edema and swelling suspicious for cellulitis. This is most severe at the i nferior medial aspect of the foot at the level of the 1st MTP. There is associated moderate volume shabazz bcutaneous emphysema and soft-tissue ulceration. No definite CT findings of acute osteomyelitis at this time. MRI can be obtained to further evaluate if clinically indicated.
--- NOTE | 2024-06-23 14:04 | ED.PDOC ---
History of Present Illness HPI Comments 64-year-old female who comes in with chief complaint of right foot infection. The patient states that she has had the symptoms over the past three years but seems to be worsening at this time. The patient was seen by home health yesterday and was told to come to the emergency department's for evaluation. Th ere has been no fever but the patient was also having some chills. At this time she states that the pain is a 9/10. The patient was brought in by her son in his also complaining of some nausea. Chief Complaint: Wound Check Time Seen by MD: 12:33 Primary Care Provider: CHAYA Reviewed Notes: Nurses Notes, Medications, Allergies (Allergies listed above) Allergies: Coded Allergies: Codeine (Verified Adverse Reaction, Unknown, 02/10/19) N/V Promethazine (Verified Adverse Reaction, Unknown, 02/10/19) N/V Home Meds Active Scripts Lactulose (Lactulose) 10 Gm Federico, 10 GM PO TID for 7 Days, #210 PACK Prov:LAURA LIMA MD 08/17/22 Levofloxacin (Levaquin) 500 Mg Tab, 500 MG PO DAILY, #10 TAB Prov:LAURA LIMA MD 08/17/22 Metronidazole (Flagyl) 500 Mg Tab, 500 MG PO TID, #30 TAB Prov:LAURA LIMA MD 08/17/22 Nifedipine (Nifedipine Er) 30 Mg Tab, 30 MG PO BID for 30 Days, #30 TAB Prov:PARTHA QUIROS MD 02/13/22 Metoprolol Tartrate (Metoprolol Tartrate) 50 Mg Tab, 50 MG PO BID for 30 Days, #60 MG Prov:PARTHA QUIROS MD 02/13/22 Amlodipine Besylate (Amlodipine Besylate) 10 Mg Tab, 1 TAB PO DAILY, #90 TAB 1 Refill Prov:LAURA LIMA MD 12/29/21 Atorvastatin Calcium (ATORVASTATIN CALCIUM) 20 Mg Tab, 20 MG PO HS, #90 TAB Prov:SIVAN PASCUAL MD 09/24/14 Reported Medications Lisinopril (Lisinopril) 20 Mg Tab, 1 TAB PO DAILY, #30 TAB 5 Refills 03/26/22 Atorvastatin Calcium (ATORVASTATIN CALCIUM) 20 Mg Tab, 1 TAB PO DAILY, #30 TAB 5 Refills 10/07/20 Sucralfate (Sucralfate) 1 Gm Tab, 1 GM PO QIDACHS, GM 10/07/20 Insulin NPH Isophane & Reg (Hu (Novolin 70/30 (70-30) 100 Unit/ml) 1 Inj Inj, SC 03/03/20 Aspirin (Aspirin Low Dose) 81 Mg Tab, 1 TAB PO DAILYPRN 03/03/20 Atorvastatin Calcium (ATORVASTATIN CALCIUM) 20 Mg Tab, PO 03/03/20 Amlodipine Besylate (Amlodipine Besylate) 2.5 Mg Tab, 1 TAB PO QAM 03/03/20 Metoprolol Tartrate (LOPRESSOR TABLET) 50 Mg Tb, 1 TAB PO BID 03/03/20 Cephalexin Monohydrate (Cephalexin) 500 Mg Cap, 1 CAP PO QID 03/03/20 Lisinopril (Lisinopril) 20 Mg Tab, PO 03/03/20 Ascorbic Acid (VITAMIN C TABLET) 500 Mg Tb, 1 TAB PO DAILY, #30 TAB 3 Refills 03/23/19 Ferric Citrate (Auryxia) 210 Mg Tab, 210 MG PO TID, TAB 03/23/19 Bisacodyl (Laxative) 5 Mg Tab, 5 MG PO DAILY, TAB 10/23/18 Insulin Isophane & Reg (Human) (Humulin 70/30 (70-30) 100 Unit/ml) 1 Units/0.01 Ml Inj, 20 UNITS SC HS, INJ 05/29/16 Metoprolol Tartrate (Metoprolol Tartrate) 50 Mg Tab, 50 MG PO BID for 30 Days, MG 05/29/16 Aspirin (Aspirin Ec) 81 Mg Tab, 81 MG PO DAILY 10/22/12 Information Source: Patient, Relative (Child) Mode of Arrival: Wheelchair Severity: Moderate Timing: Weeks Duration: Since onset Prehospital treatment: None Location: Right foot redness with swelling and drainage Associated signs and symptoms Associated nausea with chills Past Medical History PAST MEDICAL HISTORY: Anxiety, CAD, DM, ESRD, High Lipids, HTN Surgical History: Cholecystectomy, Pacemaker, PTCA Surgical History (Other): Right foot surgery, liver and renal transplant, left foot toes amputation FLOUR TESTER History: No Pertinent FLOUR TESTER History Family History Family History: Family hx of DM, Family hx of HTN Social History Smoker: Non-Smoker Alcohol: Denies ETOH Use Drugs: Denies Drug Use Lives In: Home Constitutional: denies: chills, diaphoresis, fatigue, fever, malaise, sweats, weakness, others EENTM: denies: blurred vision, double vision, ear bleeding, ear discharge, ear drainage, ear pain, ear ringing, eye pain, eye redness, hearing loss, mouth pain, mouth swelling, nasal discharge, nose bleeding, nose congestion, nose pain, photophobia, tearing, throat pain, throat swelling, voice changes, others Respiratory: denies: cough, hemoptysis, orthopnea, SOB at rest, shortness of breath, SOB with excertion, stridor, wheezing, others Cardiovascular: denies: chest pain, dizzy spells, diaphoresis, Dyspnea on exertion, edema, irregular heart beat, left arm pain, lightheadedness, palpitations, PND, syncope, others Gastrointestinal: denies: abdomen distended, abdominal pain, blood streaked bowels, constipated, diarrhea, dysphagia, difficulty swallowing, hematemesis, melena, nausea, poor appetite, poor fluid intake, rectal bleeding, rectal pain, vomiting, others Genitourinary: denies: abnormal vagina bleeding, burning, dyspareunia, dysuria, flank pain, frequency, hematuria, incontinence, pain, , vagina discharge, urgency, others Neurological: denies: dizziness, fainting, headache, left sided numbness, left sided weakness, numbness, paresthesia, pre-existing deficit, right sided numbness, right sided weakness, seizure, speech problems, tingling, tremors, wea kness, others Musculoskeletal: denies: back pain, gout, joint pain, joint swelling, muscle pain, muscle stiffness, neck pain, others Integumetry: reports: rash, others (Redness with ulceration to the right foot and some mild drainage); denies: bruises, change in color, change in hair/nails, dryness, laceration, lesions, lumps, wounds Allergic/Immunocompromised: denies: Difficulty Healing, Frequent Infections, Hives, Itching, others Hematologic/Lymphatic: denies: anemia, blood clots, easy bleeding, easy br uising, swollen glands, others Endocrine: denies: excessive hunger, excessive sweating, excessive thirst, excessive urination, flushing, intolerance to cold, intolerance to heat, unexplained weight gain, unexplained weight loss, others Psychiatric: denies: anxiety, bipolar disorder, depression, hopeless, panic disorder, schizophrenia, sleepless, suicidal, others Physical Exam General Appearance: Moderate Distress HEENT: Normal ENT Inspection, Pharynx Normal, TMs Normal Neck: Full Range of Motion, Non-Tender, Normal, Normal Inspection Respiratory: Chest Non-Tender, Lungs Clear, No Accessory Muscle Use, No Respiratory Distress, Normal Breath Sounds Cardiovascular: No Edema, No JVD, No Murmur, No Gallop, Normal Peripheral P ulses, Regular Rate/Rhythm Breast Exam: Deferred Gastrointestinal: No Organomegaly, Non Tender, No Pulsatile Mass, Normal Bowel Sounds, Soft Genitalia: Deferred Pelvic: Deferred Rectal: Deferred Extremities: No calf tenderness, Normal capillary refill, Normal inspection, Normal range of motion, Non-tender, No pedal edema Musculoskeletal : Apperance: Normal Neurologic: Alert, hearing therapist II-XII nml as Tested, No Motor Deficits, Normal Affect, Normal Mood, No Sensory Deficits Cerebellar Function: Normal Reflexes: Normal Skin: Dry, Normal Color, Warm, Other (Right foot redness with drainage and ulceration consistent with an infection) Lymphatic: No Adenopathy Was a procedure done? Was a procedure done?: No Differential Dx Considerations may include: Osteomyelitis, cellulitis X-Ray, Labs, Meds, VS Vital Signs Date Time Temp Pulse Resp B/P (MAP) Pulse Ox O2 Delivery O2 Flow Rate FiO2 06/23/24 13:46 86 18 97 Room Air* 0 21 06/23/24 13:36 98.6 86 18 163/63 (96) 97 98.6 06/23/24 12:30 98.5 88 18 169/56 (93) 99 Lab Test 06/23/24 13:09 06/23/24 12:29 Range/Units White Blood Count 12.5 H 4.4-10.8 10^3/uL Red Blood Count 3.92 L 4.0-5.20 10^6/uL Hemoglobin 11.4 L 12.2-16.2 g/dL Hematocrit 35.2 L 36.0-46.0 % Mean Corpuscular Volume 90.0 80.0-100.0 fL Mean Corpuscular Hemoglobin 29.0 28.0-32.0 pg Mean Corpuscular Hemoglobin Concent 32.2 32.0-36.0 g/dL Red Cell Distribution Width 14.5 H 11.8-14.3 % Platelet Count 290 140-450 10^3/uL Mean Platelet Volume 8.7 6.9-10.8 fL Neutrophils (%) (Auto) 85.0 H 37.0-80.0 % Lymphocytes (%) (Auto) 8.7 L 10.0-50.0 % Monocytes (%) (Auto) 4.5 0.0-12.0 % Eosinophils (%) (Auto) 1.4 0.0-7.0 % Basophils (%) (Auto) 0.4 0.0-2.0 % Neutrophils # (Auto) 10.7 H 1.6-8.6 10 ^3/uL Lymphocytes # (Auto) 1.1 0.4-5.4 10 ^3/uL Monocytes # (Auto) 0.6 0-1.3 10 ^3/uL Eosinophils # (Auto) 0.2 0-0.8 10 ^3/uL Basophils # (Auto) 0 0-0.2 10 ^3/uL Nucleated Red Blood Cells 0.0 % Erythrocyte Sedimentation Rate Pending Prothrombin Time 10.2 9.3-11.8 sec Prothrombin Time INR 0.96 0.9-1.15 Activated Partial Thromboplast Time 34.2 24.5-34.5 SEC Sodium Level 130 L 136-145 mmol/L Potassium Level 5.1 3.5-5.1 mmol/L Chloride Level 102 98-107 mmol/L Carbon Dioxide Level 22 20-31 mmol/L Anion Gap 6 5-15 Blood Urea Nitrogen 19 9-23 mg/dL Creatinine 1.23 H 0.550-1.02 mg/dL Glomerular Filtration Rate Calc 49 >90 mL/min BUN/Creatinine Ratio 15.4 10.0-20.0 Serum Glucose 419 *H 74-106 mg/dL Calcium Level 9.5 8.7-10.4 mg/dL POC Glucose 359 H 70-106 mg/dl Current Medications Medications (Trade) Dose Ordered Sig/Xi Route Start Time Stop Time Status Last Admin Sodium Chloride 500 ml @ 500 mls/hr Q1H ONCE IV 06/23/24 13:00 06/23/24 14:02 DC 06/23/24 14:20 IV Hep-Lock was established The CBC shows an elevated white blood cell count of 12.5 The rest of the CBC is within normal limits except for mild anemia CT scan of the right foot shows: FINDINGS/IMPRESSION: No acute fracture or dislocation. Degenerative changes of the forefoot. Diffuse severe soft-tissue edema and swelling suspicious for cellulitis. This is most severe at the inferior medial aspect of the foot at the level of the 1st MTP. There is associated moderate volume subcutaneous emphysema and soft-tissue ulceration. At this time, the patient was being admitted to the hospitalist The patient was being started on vancomycin IV piggyback The patient's serum glucose is 419 The patient was being admitted at this time The armament aircraft mechanic is being consulted The patient was being admitted at this time Images Reviewed?: Images reviewed and evaluated by me Time of 1ST Reevaluation: 14:03 Reevaluation 1ST: Unchanged Patient Education/Counseling: Diagnosis, Treatment, Prognosis Family Education/Counseling: Diagnosis, Treatment, Prognosis Departure 1 Departure Time of Disposition: 14:04 Impression: Primary Impression: Status post kidney transplant Additional Impressions: Right foot infection Uncontrolled diabetes mellitus Qualified Codes: E13.65 - Other specified diabetes mellitus with hyperglycemia Disposition: ADMITTED INPATIENT Admit to: Med Surg Condition: Fair Critical Care Note Critical Care Time?: No Stability Stability form required: Yes Unstable for transfer: ED Physician Assesment (Clinical assesment) Heart Score Heart Score: Heart Score Response (Comments) Value History N/A 0 EKG N/A 0 Age N/A 0 Risk Factors N/A 0 Troponin N/A 0 Total 0 ALINA MILLER MD Jun 23, 2024 14:04
[2024-06-23 14:05] LABS: Chloride 102 mmol/L (98-107)
[2024-06-23 14:06] LABS: Anion Gap 6 (5-15); Carbon Dioxide 22 mmol/L (20-31)
[2024-06-23 14:07] LABS: Calcium 9.5 mg/dL (8.7-10.4)
[2024-06-23 14:08] LABS: Potassium 5.1 mmol/L (3.5-5.1); Sodium 130 mmol/L (136-145)
[2024-06-23 14:12] LABS: BUN/Creatinine Ratio 15.4 (10.0-20.0); Blood Urea Nitrogen 19 mg/dL (9-23)
[2024-06-23] MEDS: VANCOMYCIN 1GM/250ML KIT 250 ML IV ONE (14:15)
[2024-06-23] MEDS: SODIUM CHLORIDE 0.9% 500 ML IV ONE (14:20)
[2024-06-23 14:24] LABS: Glucose 419 mg/dL (74-106)
[2024-06-23] MEDS: ONDANSETRON HCL 4 MG/2 ML VIAL IV ONE (14:30)
[2024-06-23] MEDS: MORPHINE SULFATE 4 MG/ML SYR/VIAL IV ONE (14:32)
[2024-06-23 14:33] LABS: Erythrocyte Sedimentation Rate 90 mm/hr (0-20)
[2024-06-23] MEDS: InsuLIN REG 1unit/0.01ml Soln (100units/ml) IV ONE (15:28)
[2024-06-23 19:45] VITALS: PULSE 78; RESP 20; O2SAT 96
[2024-06-23 20:07] LABS: Urine Bacteria None Seen /hpf (None Seen)
[2024-06-23 20:13] LABS: Urine Blood Negative /uL (Negative); Urine Clarity Clear (Clear); Urine Color Light-Yellow (Yellow); Urine Protein, UAD Negative (Negative); Urine Specific Gravity 1.025 (1.001-1.035); Urine Squamous Epithelial Cell FEW /hpf (<5); Urine Urobilinogen Normal (Negative); Urine WBC 1 /HPF (0-5)
[2024-06-23] MEDS ORDERED: DEXTROSE (50%) 50ML SYRG IV PRN (22:30)
[2024-06-23] MEDS ORDERED: ONDANSETRON HCL 4 MG/2 ML VIAL IV PRN (22:30)
--- NOTE | 2024-06-23 22:44 | DVHHP2 ---
History of Present Illness Reason for Visit: Right foot History of Present Illness 64-year-old female presents for evaluation of right foot wound. Patient reports having a chronic wound that has been going on for more than a year. She states that over the past four days she has noticed her right foot becoming more swollen, tender with redness. Denies fever or chills. Denies any trauma to the area. No other acute complaints reported. Past Medical History Diabetes mellitus, hypertension, dyslipidemia Past Surgical History Pacemaker, PTCA, cholecystectomy, kidney transplant, left toe amputations Family History Noncontributory Smoke: No ALCOHOL: none Drugs: None Lives: with Family Review of Systems Review of Systems Review of systems are currently negative otherwise addressed in HPI. Allergies: Coded Allergies: Codeine (Verified Adverse Reaction, Unknown, 02/10/19) N/V Promethazine (Verified Adverse Reaction, Unknown, 02/10/19) N/V Medications Current Medications Medications Dose Ordered Sig/Xi Route Start Time Stop Time Status Last Admin Dose Admin Ceftriaxone Sodium 50 ml @ 100 mls/hr DAILY@09 IV 06/24/24 09:00 UNV Clindamycin Phosphate 50 ml @ 50 mls/hr Q8HR IV 06/24/24 06:00 UNV Nifedipine 30 mg DAILY PO 06/24/24 10:00 UNV Prednisone 5 mg DAILY PO 06/24/24 10:00 UNV Mycophenolate Mofetil 500 mg BID PO 06/24/24 10:00 UNV Tacrolimus 5 mg BID PO 06/24/24 10:00 UNV Diagnostic Test (Pha) 1 strip Q6HR 06/24/24 00:00 UNV Insulin Human Regular Q6HR SC 06/24/24 00:00 UNV Dextrose 50 ml UD PRN IV 06/23/24 22:30 UNV Ondansetron HCl 4 mg Q4HP PRN IV 06/23/24 22:30 UNV Acetaminophen 650 mg Q6HP PRN PO 06/23/24 22:30 UNV Exam Vital Signs Vital Signs Date Time Temp Pulse Resp B/P (MAP) Pulse Ox O2 Delivery O2 Flow Rate FiO2 06/23/24 20:00 77 06/23/24 19:58 97.3 20 132/47 (75) 94 97.3 06/23/24 13:46 Room Air* 0 21 Exam Gen: 64-year-old female in mild distress. Skin: Warm, dry, normal color and texture, no rash. HEENT: Normocephalic atraumatic, mucous membranes moist and pink. Neck: Cervical and supraclavicular nodes normal without enlargement, trachea is midline, thyroid gland is normal without masses. Pulmonary: Clear to auscultation and percussion bilaterally. Cardiac: Regular rate and rhythm. No murmur Abdomen: Soft, nontender, nondistended, bowel sounds present all 4 quadrants, no guarding, no rigidity, no organomegaly. Extremities: No cyanosis, clubbing, right foot plantar open wound with erythema Neuro: Cranial nerves II through XII grossly intact, normal affect and speech, no focal motor deficits. Labs/Xrays ORDERING PHYSICIAN: ALINA MILLER MD PROCEDURE(s): RFTCT - CT R FOOT WO CONTRAST REASON: pain ORDER NUMBER(s): [id number], ACCESSION NUMBER(s): [id number] EXAMINATION: CT CT R FOOT WO CONTRAST INDICATION: pain COMPARISON: CT R FOOT WO CONTRAST on DOS: 07/05/20 TECHNIQUE: CT of the right foot was performed with contrast. Volume transverse images were obtained reconstructed in multiple planes using bone and soft tissue algorithms. Radiation Dose Information: CT Dose: CTDI volume is 7.75 mGy. Dose-length product is 237.11 mGy*cm FINDINGS/IMPRESSION: No acute fracture or dislocation. Degenerative changes of the forefoot. Diffuse severe soft-tissue edema and swelling suspicious for cellulitis. This is most severe at the inferior medial aspect of the foot at the level of the 1st MTP. There is associated moderate volume subcutaneous emphysema and soft-tissue ulceration. No definite CT findings of acute osteomyelitis at this time. MRI can be obtained to further evaluate if clinically indicated. Labs Test 06/23/24 17:54 06/23/24 16:14 06/23/24 13:09 Range/Units Urine Color Light-yellow Yellow Urine Clarity Clear Clear Urine pH 5.0 5.0-9.0 Urine Specific [place] 1.025 1.001-1.035 Urine Protein Negative Negative Urine Ketones Negative Negative Urine Blood Negative Negative /uL Urine Nitrite Negative Negative Urine Bilirubin Negative Negative Urine Urobilinogen Normal Negative mg/dL Urine Leukocyte Esterase Negative Negative /uL Urine RBC <1 0 - 4 /hpf Urine Microscopic WBC 1 0-5 /HPF Urine Squamous Epithelial Cells Few <5 /hpf Urine Bacteria None seen None Seen /hpf Urine Glucose 4+ H Normal mg/dL POC Glucose 286 H 70-106 mg/dl White Blood Count 12.5 H 4.4-10.8 10^3/uL Red Blood Count 3.92 L 4.0-5.20 10^6/uL Hemoglobin 11.4 L 12.2-16.2 g/dL Hematocrit 35.2 L 36.0-46.0 % Mean Corpuscular Volume 90.0 80.0-100.0 fL Mean Corpuscular Hemoglobin 29.0 28.0-32.0 pg Mean Corpuscular Hemoglobin Concent 32.2 32.0-36.0 g/dL Red Cell Distribution Width 14.5 H 11.8-14.3 % Platelet Count 290 140-450 10^3/uL Mean Platelet Volume 8.7 6.9-10.8 fL Neutrophils (%) (Auto) 85.0 H 37.0-80.0 % Lymphocytes (%) (Auto) 8.7 L 10.0-50.0 % Monocytes (%) (Auto) 4.5 0.0-12.0 % Eosinophils (%) (Auto) 1.4 0.0-7.0 % Basophils (%) (Auto) 0.4 0.0-2.0 % Neutrophils # (Auto) 10.7 H 1.6-8.6 10 ^3/uL Lymphocytes # (Auto) 1.1 0.4-5.4 10 ^3/uL Monocytes # (Auto) 0.6 0-1.3 10 ^3/uL Eosinophils # (Auto) 0.2 0-0.8 10 ^3/uL Basophils # (Auto) 0 0-0.2 10 ^3/uL Nucleated Red Blood Cells 0.0 % Erythrocyte Sedimentation Rate 90 H 0-20 mm/hr Prothrombin Time 10.2 9.3-11.8 sec Prothrombin Time INR 0.96 0.9-1.15 Activated Partial Thromboplast Time 34.2 24.5-34.5 SEC Sodium Level 130 L 136-145 mmol/L Potassium Level 5.1 3.5-5.1 mmol/L Chloride Level 102 98-107 mmol/L Carbon Dioxide Level 22 20-31 mmol/L Anion Gap 6 5-15 Blood Urea Nitrogen 19 9-23 mg/dL Creatinine 1.23 H 0.550-1.02 mg/dL Glomerular Filtration Rate Calc 49 >90 mL/min BUN/Creatinine Ratio 15.4 10.0-20.0 Serum Glucose 419 *H 74-106 mg/dL Calcium Level 9.5 8.7-10.4 mg/dL Assessment/Plan Assessment/Plan Assessment Right foot infected diabetic ulcer Cellulitis Status post kidney transplant Uncontrolled diabetes mellitus Admit the patient to [facility] surge to the hospitalist Podiatry consultation Rocephin/clindamycin Pending Resume home medications Continue treatment per orders Plan discussed with: Patient My Orders Orders - YENIFER SANDOVAL Procedure Category Date Status Time Ceftriaxone 1gm/50ml PHA 06/24/24 Logged D5w (Rocephin) 09:00 Ceftriaxone 1gm/50ml PHA 06/23/24 Logged D5w (Rocephin) 22:30 Clindamycin 600mg Iv PHA 06/24/24 Logged (Cleocin Iv) 06:00 Clindamycin 600mg Iv PHA 06/23/24 Logged (Cleocin Iv) 22:30 Nifedipine Er PHA 06/24/24 Logged (Procardia Xl 10:00 Prednisone Tablet PHA 06/24/24 Logged 10:00 Mycophenolate Mofetil PHA 06/24/24 Logged (Cellcept) 10:00 Tacrolimus (Prograf) PHA 06/24/24 Logged 10:00 Tacrolimus ([id number]) LAB 06/23/24 Logged 22:23 Basic Metabolic Panel LAB 06/24/24 Verified 04:00 Glucose Blood PHA 06/24/24 Logged (Accu-Chek Comfort 00:00 Insulin R (Human) PHA 06/24/24 Logged (Insulin R) 00:00 Dextrose 50% Syringe PHA 06/23/24 Logged 22:30 Admit ADMIT 06/23/24 Transmitted 22:23 Ondansetron Hcl PHA 06/23/24 Logged (Zofran) 22:30 Complete Blood Count LAB 06/24/24 Verified 04:00 Cardiac DIET 06/24/24 Transmitted Diet-2gna,Lofat,Lochol Breakfast Condition: Stable NEERAJ 06/23/24 In Process 22:23 Acetaminophen Tablet PHA 06/23/24 Logged (Tylenol Tablet) 22:30 Bedrest With Bathroom NEERAJ 06/23/24 In Process Privileg 22:23 Date of Service: Jun 23, 2024 Billing Provider: YENIFER SANDOVAL Common Visit Codes: [id number] INP/OBS CARE (HIGH) YENIFER SANDOVAL Jun 23, 2024 22:44
[2024-06-23] MEDS: cefTRIAXone 1GM/50ML D5W 50 ML IV ONE (22:59)
[2024-06-23] MEDS: CLINDAMYCIN 600MG IV 50 ML IV ONE (22:59)
[2024-06-24] MEDS: ACETAMINOPHEN 325 MG TAB PO ONE (04:05)
[2024-06-24] MEDS: ACETAMINOPHEN 325 MG TAB PO PRN ×2 (05:08→15:07)
[2024-06-24] MEDS: InsuLIN REG 1unit/0.01ml Soln (100units/ml) ONE (05:37)
[2024-06-24] MEDS ORDERED: CLINDAMYCIN 600MG IV 50 ML IV SCH (06:00)
[2024-06-24 09:00] VITALS: BP 148/60; PULSE 81; RESP 16; TEMP 98.4; O2SAT 99
[2024-06-24] MEDS: CLINDAMYCIN 600MG IV 50 ML IV SCH ×2 (09:45→10:15)
[2024-06-24] MEDS ORDERED: MYCOPHENOLATE 500 MG TAB PO SCH (10:00)
[2024-06-24] MEDS ORDERED: TACROLIMUS 1 MG CAP PO SCH (10:00)
[2024-06-24] MEDS ORDERED: NIFEdipine ER 30 MG TAB PO SCH (10:00)
[2024-06-24] MEDS ORDERED: predniSONE 5 MG TAB PO SCH (10:00)
[2024-06-24] MEDS ORDERED: DEXTROSE (50%) 50ML SYRG IV PRN (10:15)
[2024-06-24] MEDS: ACCU-CHEK COMFORT CURVE STRIP VI SCH ×2 (12:00)
[2024-06-24] MEDS: amLODIPine BESYLATE 5 MG TAB PO SCH (12:26)
[2024-06-24] MEDS: InsuLIN REG 1unit/0.01ml Soln (100units/ml) SC SCH ×2 (12:56)
[2024-06-24 13:00] VITALS: BP 155/73; PULSE 83; RESP 18; TEMP 98.9; O2SAT 99
--- NOTE | 2024-06-24 13:18 | DVHINCON2 ---
Date Seen: Jun 24, 2024 Reason for Consultation Right foot wound History of Present Illness 64-year-old female presents for evaluation of right foot wound. Patient reports having a chronic wound that has been going on for more than a year. She states that over the past four days she has noticed her right foot becoming more swollen, tender with redness. Denies fever or chills. Denies any trauma to the area. No other acute complaints reported. Past Medical History See H&P Past Surgical History See H&P Family History: Cancer G8 FATHER (LIVER) Diabetes mellitus G8 MOTHER G8 FATHER G8 MOTHER G8 FATHER G8 MOTHER G8 FATHER Diabetes mellitus G8 MOTHER G8 FATHER G8 MOTHER G8 FATHER G8 MOTHER G8 FATHER Diabetes mellitus G8 MOTHER G8 FATHER G8 MOTHER G8 FATHER G8 MOTHER G8 FATHER FH: cancer G8 FATHER FHx: hypertension Family history: Diabetes mellitus G8 MOTHER G8 FATHER G8 BROTHER G8 BROTHER G8 BROTHER G8 BROTHER G8 BROTHER G8 BROTHER Family history: Hypercholesterolemia (situation) G8 BROTHER G8 BROTHER G8 BROTHER G8 BROTHER G8 BROTHER G8 BROTHER Family history: Hypertension G8 MOTHER Hypertension G8 FATHER G8 MOTHER Hypertension G8 FATHER G8 MOTHER Allergies: Coded Allergies: Codeine (Verified Adverse Reaction, Unknown, 02/10/19) N/V Promethazine (Verified Adverse Reaction, Unknown, 02/10/19) N/V Home Meds Active Scripts Lactulose (Lactulose) 10 Gm Federico, 10 GM PO TID for 7 Days, #210 PACK Prov:LAURA LIMA MD 08/17/22 Levofloxacin (Levaquin) 500 Mg Tab, 500 MG PO DAILY, #10 TAB Prov:LAURA LIMA MD 08/17/22 Metronidazole (Flagyl) 500 Mg Tab, 500 MG PO TID, #30 TAB Prov:LAURA LIMA MD 08/17/22 Nifedipine (Nifedipine Er) 30 Mg Tab, 30 MG PO BID for 30 Days, #30 TAB Prov:PARTHA QUIROS MD 02/13/22 Metoprolol Tartrate (Metoprolol Tartrate) 50 Mg Tab, 50 MG PO BID for 30 Days, #60 MG Prov:PARTHA QUIROS MD 02/13/22 Amlodipine Besylate (Amlodipine Besylate) 10 Mg Tab, 1 TAB PO DAILY, #90 TAB 1 Refill Prov:LAURA LIMA MD 12/29/21 Atorvastatin Calcium (ATORVASTATIN CALCIUM) 20 Mg Tab, 20 MG PO HS, #90 TAB Prov:SIVAN PASCUAL MD 09/24/14 Reported Medications Lisinopril (Lisinopril) 20 Mg Tab, 1 TAB PO DAILY, #30 TAB 5 Refills 03/26/22 Atorvastatin Calcium (ATORVASTATIN CALCIUM) 20 Mg Tab, 1 TAB PO DAILY, #30 TAB 5 Refills 10/07/20 Sucralfate (Sucralfate) 1 Gm Tab, 1 GM PO QIDACHS, GM 10/07/20 Insulin NPH Isophane & Reg (Hu (Novolin 70/30 (70-30) 100 Unit/ml) 1 Inj Inj, SC 03/03/20 Aspirin (Aspirin Low Dose) 81 Mg Tab, 1 TAB PO DAILYPRN 03/03/20 Atorvastatin Calcium (ATORVASTATIN CALCIUM) 20 Mg Tab, PO 03/03/20 Amlodipine Besylate (Amlodipine Besylate) 2.5 Mg Tab, 1 TAB PO QAM 03/03/20 Metoprolol Tartrate (LOPRESSOR TABLET) 50 Mg Tb, 1 TAB PO BID 03/03/20 Cephalexin Monohydrate (Cephalexin) 500 Mg Cap, 1 CAP PO QID 03/03/20 Lisinopril (Lisinopril) 20 Mg Tab, PO 03/03/20 Ascorbic Acid (VITAMIN C TABLET) 500 Mg Tb, 1 TAB PO DAILY, #30 TAB 3 Refills 03/23/19 Ferric Citrate (Auryxia) 210 Mg Tab, 210 MG PO TID, TAB 03/23/19 Bisacodyl (Laxative) 5 Mg Tab, 5 MG PO DAILY, TAB 10/23/18 Insulin Isophane & Reg (Human) (Humulin 70/30 (70-30) 100 Unit/ml) 1 Units/0.01 Ml Inj, 20 UNITS SC HS, INJ 05/29/16 Metoprolol Tartrate (Metoprolol Tartrate) 50 Mg Tab, 50 MG PO BID for 30 Days, MG 05/29/16 Aspirin (Aspirin Ec) 81 Mg Tab, 81 MG PO DAILY 10/22/12 Current Medications Current Medications Medications (Trade) Dose Ordered Sig/Xi Route PRN Reason Start Time Stop Time Status Last Admin Ceftriaxone Sodium 50 ml @ 100 mls/hr DAILY@2100 IV 06/24/24 21:00 06/24/24 10:05 DC Clindamycin Phosphate 50 ml @ 50 mls/hr Q8HR IV 06/24/24 06:00 06/24/24 07:57 DC Nifedipine (Procardia Xl (Time-Release)) 30 mg DAILY PO 06/24/24 10:00 06/24/24 10:05 DC Prednisone 5 mg DAILY PO 06/24/24 10:00 06/24/24 10:05 DC Mycophenolate Mofetil (Cellcept) 500 mg BID PO 06/24/24 10:00 06/24/24 10:05 DC Tacrolimus (Prograf) 5 mg BID PO 06/24/24 10:00 06/24/24 10:06 DC Diagnostic Test (Pha) (Accu-Chek Comfort Curve T) 1 strip Q6HR 06/24/24 00:00 06/24/24 10:06 DC 06/24/24 06:00 Insulin Human Regular (InsuLIN R) Q6HR SC 06/24/24 00:00 06/24/24 10:06 DC 06/24/24 06:42 Dextrose 50 ml UD PRN IV Blood Sugar LESS THAN 60 06/23/24 22:30 06/24/24 10:07 DC Ondansetron HCl (Zofran) 4 mg Q4HP PRN IV NAUSEA / VOMITING 06/23/24 22:30 06/24/24 10:07 DC Acetaminophen (Tylenol Tablet) 650 mg Q6HP PRN PO PAIN SCALE 1-3 OR TEMP>100.4 06/23/24 22:30 06/24/24 10:07 DC 06/24/24 05:08 Clindamycin Phosphate 50 ml @ 50 mls/hr Q8H IV 06/24/24 09:00 06/24/24 10:07 DC 06/24/24 09:45 Ceftriaxone Sodium 50 ml @ 100 mls/hr DAILY@2100 IV 06/24/24 21:00 Nifedipine (Procardia Xl (Time-Release)) 30 mg DAILY PO 06/25/24 10:00 Prednisone 5 mg DAILY PO 06/25/24 10:00 Mycophenolate Mofetil (Cellcept) 500 mg BID PO 06/24/24 22:00 Tacrolimus (Prograf) 5 mg BID PO 06/24/24 22:00 Diagnostic Test (Pha) (Accu-Chek Comfort Curve T) 1 strip Q6HR 06/24/24 12:00 06/24/24 12:00 Insulin Human Regular (InsuLIN R) Q6HR SC 06/24/24 12:00 06/24/24 12:56 Dextrose 50 ml UD PRN IV Blood Sugar LESS THAN 60 06/24/24 10:15 Ondansetron HCl (Zofran) 4 mg Q4HP PRN IV NAUSEA / VOMITING 06/24/24 10:15 Acetaminophen (Tylenol Tablet) 650 mg Q6HP PRN PO PAIN SCALE 1-3 OR TEMP>100.4 06/24/24 10:15 Clindamycin Phosphate 50 ml @ 50 mls/hr Q8H IV 06/24/24 10:15 Amlodipine Besylate (Norvasc Tablet) 10 mg DAILY PO 06/24/24 12:15 06/24/24 12:26 Vital Signs Vital Signs Date Time Temp Pulse Resp B/P (MAP) Pulse Ox O2 Delivery O2 Flow Rate FiO2 06/24/24 12:26 155/73 06/24/24 04:26 Nasal Cannula* 2 28 06/24/24 03:06 98.4 78 20 100 98.4 Physical Exam DERMATOLOGIC EXAM: - Skin is dry and cool to the touch dry bilaterally. - Nails 1-5 of the bilateral foot are thickened, discolored, dystrophic, and tender to palpate with subungual debris - Hair loss noted to bilateral feet Wound #1: Location: Right plantar foot Measurements: Length 1 cm x width 1 cm x depth 1 cm. Wound margins: Hyperkeratotic. Wound base: Full thickness. General Appearance: Healthy and bleeding. Probes to Bone: yes Purulent drainage: yes Serous drainage: No Erythema: Periwound VASCULAR EXAM: - DP and PT pulses are palpable bilaterally. - OVERSEER KOSHER KITCHEN is brisk to all digits. - Feet are cool to touch compared to lower legs bilaterally. NEUROLOGIC EXAM: - Normal light touch sensation to the superficial peroneal, deep peroneal, sural, saphenous, and tibial nerve branches. - Protective sensation is diminished as tested with a 5.07 10g [place] bilaterally. MUSCULOSKELETAL EXAM: - No gross deformities - Muscle strength is 5/5 and active motion is pain-free and symmetrical bilaterally - No pain or crepitation with passive range of motion bilaterally to all major pedal joints Labs/Diagnostic Data Labs Test 06/24/24 12:32 06/23/24 22:35 06/23/24 17:54 06/23/24 13:09 Range/Units POC Glucose 168 H 70-106 mg/dl Urine Color Light-yellow Yellow Urine Clarity Clear Clear Urine pH 5.0 5.0-9.0 Urine Specific [place] 1.025 1.001-1.035 Urine Protein Negative Negative Urine Ketones Negative Negative Urine Blood Negative Negative /uL Urine Nitrite Negative Negative Urine Bilirubin Negative Negative Urine Urobilinogen Normal Negative mg/dL Urine Leukocyte Esterase Negative Negative /uL Urine RBC <1 0 - 4 /hpf Urine Microscopic WBC 1 0-5 /HPF Urine Squamous Epithelial Cells Few <5 /hpf Urine Bacteria None seen None Seen /hpf Urine Glucose 4+ H Normal mg/dL White Blood Count 12.5 H 4.4-10.8 10^3/uL Red Blood Count 3.92 L 4.0-5.20 10^6/uL Hemoglobin 11.4 L 12.2-16.2 g/dL Hematocrit 35.2 L 36.0-46.0 % Mean Corpuscular Volume 90.0 80.0-100.0 fL Mean Corpuscular Hemoglobin 29.0 28.0-32.0 pg Mean Corpuscular Hemoglobin Concent 32.2 32.0-36.0 g/dL Red Cell Distribution Width 14.5 H 11.8-14.3 % Platelet Count 290 140-450 10^3/uL Mean Platelet Volume 8.7 6.9-10.8 fL Neutrophils (%) (Auto) 85.0 H 37.0-80.0 % Lymphocytes (%) (Auto) 8.7 L 10.0-50.0 % Monocytes (%) (Auto) 4.5 0.0-12.0 % Eosinophils (%) (Auto) 1.4 0.0-7.0 % Basophils (%) (Auto) 0.4 0.0-2.0 % Neutrophils # (Auto) 10.7 H 1.6-8.6 10 ^3/uL Lymphocytes # (Auto) 1.1 0.4-5.4 10 ^3/uL Monocytes # (Auto) 0.6 0-1.3 10 ^3/uL Eosinophils # (Auto) 0.2 0-0.8 10 ^3/uL Basophils # (Auto) 0 0-0.2 10 ^3/uL Nucleated Red Blood Cells 0.0 % Erythrocyte Sedimentation Rate 90 H 0-20 mm/hr Prothrombin Time 10.2 9.3-11.8 sec Prothrombin Time INR 0.96 0.9-1.15 Activated Partial Thromboplast Time 34.2 24.5-34.5 SEC Sodium Level 130 L 136-145 mmol/L Potassium Level 5.1 3.5-5.1 mmol/L Chloride Level 102 98-107 mmol/L Carbon Dioxide Level 22 20-31 mmol/L Anion Gap 6 5-15 Blood Urea Nitrogen 19 9-23 mg/dL Creatinine 1.23 H 0.550-1.02 mg/dL Glomerular Filtration Rate Calc 49 >90 mL/min BUN/Creatinine Ratio 15.4 10.0-20.0 Serum Glucose 419 *H 74-106 mg/dL Calcium Level 9.5 8.7-10.4 mg/dL Microbiology Date/Time Source Procedure Growth Status 06/23/24 12:56 Foot Right Gram Stain - Final Resulted 06/23/24 12:56 Foot Right Wound Culture - Preliminary Resulted Problems(with codes): (1) Headache (2) Sinusitis (3) Acute renal failure (4) Hypertensive emergency, no CHF (5) Metabolic encephalopathy (6) Musculoskeletal chest pain (7) UTI (urinary tract infection) (8) Chronic kidney disease, stage 3 (9) Edema (10) Diabetic retinopathy (11) Hypertension (12) URI (upper respiratory infection) (13) Shortness of breath with exposure to severe acute respiratory syndrome coronavirus 2 (SARS-CoV-2) (14) Scalp contusion (15) Intractable abdominal pain (16) End stage renal disease on dialysis (17) Anemia, iron deficiency (18) Diabetic nephropathy (19) Elevated LFTs (20) Epigastric abdominal pain (21) HTN (hypertension) (22) Gastric peptic ulcer (23) Gastritis determined by endoscopy (24) Anemia in chronic kidney disease (CKD) (25) Uncontrolled hypertension (26) Chest pain (27) Hyperkalemia (28) Hypochloremia (29) Hypermagnesemia (30) Accelerated hypertension (31) Pneumonia (32) Cardiac pacemaker in situ (33) CHF (congestive heart failure) (34) End stage renal failure on dialysis (35) ESRD needing dialysis (36) Ascites (37) Diverticulosis (38) Epigastric pain (39) Nausea and vomiting (40) Elevated bilirubin (41) Elevated alkaline phosphatase level (42) Cirrhosis of liver (43) Acute appendicitis (44) ESRD on dialysis (45) Intractable abdominal pain (46) Elevated liver enzymes (47) Right foot infection (48) Uncontrolled diabetes mellitus (49) Muscle pain (50) possible reaction to statin medication (51) mild anemia (52) rule out DVT (53) uncontrolled diabetes (54) Diabetes mellitus (55) Unstable angina pectoris (56) Atypical chest pain (57) Hypertension (58) Chest pain (59) ACS (acute coronary syndrome) (60) CHEST PAIN NOS (61) INTERMED CORONARY SYND Plan/Recommendation ASSESSMENT: Patient is a 64 year old seen on the floor for a worsening ulcer PLAN: - The patients chart was reviewed, clinical findings were discussed with the patient, the etiologies of the conditions were discussed in detail, and a treatment plan was agreed to at this time, with both oral and written instructions provided. - reviewed advanced imaging - discussed plan is to perform an incision and drainage with bone biopsy and exostectomy - patient will be NPO at midnight - take him to the OR tomorrow - we will get cultures in the OR - can weightbear as tolerated in postoperative shoe All questions were answered and concerns addressed to the patient's satisfaction. The patient was given the phone number to the clinic and was told how to make contact with the clinic should any concerns or questions arise. Patient understands that if any questions or concerns arise prior to the next appointment, we should be contacted immediately. FOLLOW-UP: Continue to follow while inpatient Plan discussed with: Patient Date of Service: Jun 24, 2024 Billing Provider: LITO DUONG DPM Common Visit Codes: CONSULT ONLY Consultation Codes: [id number] CONSULT <80MIN LITO DUONG DPM Jun 24, 2024 13:18
--- NOTE | 2024-06-24 14:39 | DVHPN2 ---
Subjective Patient continues to report having foot pain Reviewed: Care Plan, H&P, Labs, Medications Changes from previous H/P or p: No Changes General: Per HPI Objective Vitals Vital Signs Date Time Temp Pulse Resp B/P (MAP) Pulse Ox O2 Delivery O2 Flow Rate FiO2 06/24/24 12:26 155/73 06/24/24 04:26 Nasal Cannula* 2 28 06/24/24 03:06 98.4 78 20 100 98.4 Intake/Output Intake and Output 06/24/24 07:00 Intake Total 610 ml Balance 610 ml Intake Oral 10 ml IV Total 600 ml General Appearance: Alert, Oriented X3, Cooperative, mild distress HEENT: Atraumatic, PERRLA Neck: Carotid [place] Lungs: Normal air movement Cardiovascular: Normal S1, Normal S2 Abdomen: Normal bowel sounds Genitourinary: No Apparent Abnormalities Musculoskeletal: Normal sensory function Extremities: Other (Wound to right foot. Dressing dry and intact) Neuro: Normal speech Skin: Dry, Intact, Wounds (See nurse notes and pictures) Psych/Mental Status: Mental status NL, Mood NL Medications Current Medications Medications Dose Ordered Sig/Xi Route Start Time Stop Time Status Last Admin Dose Admin Ceftriaxone Sodium 50 ml @ 100 mls/hr DAILY@2100 IV 06/24/24 21:00 Nifedipine 30 mg DAILY PO 06/25/24 10:00 Prednisone 5 mg DAILY PO 06/25/24 10:00 Mycophenolate Mofetil 500 mg BID PO 06/24/24 22:00 Tacrolimus 5 mg BID PO 06/24/24 22:00 Diagnostic Test (Pha) 1 strip Q6HR 06/24/24 12:00 06/24/24 12:00 1 STRIP Insulin Human Regular Q6HR SC 06/24/24 12:00 06/24/24 12:56 3 UNITS Dextrose 50 ml UD PRN IV 06/24/24 10:15 Ondansetron HCl 4 mg Q4HP PRN IV 06/24/24 10:15 Acetaminophen 650 mg Q6HP PRN PO 06/24/24 10:15 Clindamycin Phosphate 50 ml @ 50 mls/hr Q8H IV 06/24/24 10:15 Amlodipine Besylate 10 mg DAILY PO 06/24/24 12:15 06/24/24 12:26 10 MG Laboratory Results Laboratory Tests 06/23/24 13:09 Urinalysis Test 06/23/24 17:54 Urine Color Light-yellow (Yellow) Urine Clarity Clear (Clear) Urine pH 5.0 (5.0-9.0) Urine Specific [place] 1.025 (1.001-1.035) Urine Protein Negative (Negative) Urine Ketones Negative (Negative) Urine Blood Negative /uL (Negative) Urine Nitrite Negative (Negative) Urine Bilirubin Negative (Negative) Urine Urobilinogen Normal mg/dL (Negative) Urine Leukocyte Esterase Negative /uL (Negative) Urine RBC <1 /hpf (0 - 4) Urine Microscopic WBC 1 /HPF (0-5) Urine Squamous Epithelial Cells Few /hpf (<5) Urine Bacteria None seen /hpf (None Seen) Urine Glucose 4+ mg/dL (Normal) H Microbiology Microbiology Date/Time Source Procedure Growth Status 06/23/24 12:56 Foot Right Gram Stain - Final Resulted 06/23/24 12:56 Foot Right Wound Culture - Preliminary Resulted Labs and/or images reviewed: Labs reviewed by me, Image(s) reviewed by me Assessment/Plan Assessment/Plan Impression: -sepsis -diabetes mellitus -probable right foot osteomyelitis -obesity -accelerated hypertension -history of liver and renal transplant -CKD stage IIIa Plan: -podiatry consultation: Plans for surgery tomorrow -continue Rocephin and clindamycin -add Florastor -regular insulin sliding scale -check lipid and A1c -continue Prograf and CellCept -continue antihypertensives Plan discussed with: Patient, Other (RN) My Orders Orders - NYDIA CASTREJON NP Procedure Category Date Status Time Amlodipine Tablet PHA 06/24/24 In Process (Norvasc Tablet) 12:15 Hemoglobin A1c LAB 06/24/24 Verified 14:25 NS PHA 06/24/24 Verified 14:30 Florastor (S. PHA 06/25/24 Verified Boulardii) (Florastor) 10:00 Chest Xray 1 View XY 06/24/24 Verified 14:25 Basic Metabolic Panel LAB 06/25/24 Verified 04:00 Hydromorphone PHA 06/24/24 Verified Injection (Dilaudid 14:30 Date of Service: Jun 24, 2024 Billing Provider: NYDIA CASTREJON NP Common Visit Codes: [id number] INP/OBS CARE(HIGH) NYDIA CASTREJON NP Jun 24, 2024 14:39
[2024-06-24] MEDS: SODIUM CHLORIDE 0.9% 1,000 ML IV SCH (14:57)
[2024-06-24 15:12] LABS: Basophils # (auto) 0.1 10 ^3/uL (0-0.2); Basophils % (auto) 0.8 % (0.0-2.0); Eosinophils # (auto) 0.2 10 ^3/uL (0-0.8); Eosinophils % (auto) 3.4 % (0.0-7.0); Hematocrit 33.7 % (36.0-46.0); Lymphocytes # (auto) 1.2 10 ^3/uL (0.4-5.4); Lymphocytes % (auto) 18.9 % (10.0-50.0); Mean Corpuscular Hgb Conc. 32.6 g/dL (32.0-36.0); Mean Corpuscular Volume 88.9 fL (80.0-100.0); Monocytes # (auto) 0.3 10 ^3/uL (0-1.3); Monocytes % (auto) 5.1 % (0.0-12.0); Neutrophils # (auto) 4.7 10 ^3/uL (1.6-8.6); Neutrophils % (auto) 71.8 % (37.0-80.0); Platelet Count (auto) 283 10^3/uL (140-450); Red Blood Cells 3.79 10^6/uL (4.0-5.20); Red Cell Distribution Width 14.2 % (11.8-14.3); White Blood Cell 6.5 10^3/uL (4.4-10.8)
[2024-06-24 15:32] LABS: Chloride 102 mmol/L (98-107); Potassium 4.9 mmol/L (3.5-5.1)
[2024-06-24 15:33] LABS: Anion Gap 8 (5-15); Calcium 9.3 mg/dL (8.7-10.4); Carbon Dioxide 25 mmol/L (20-31)
[2024-06-24 15:38] LABS: BUN/Creatinine Ratio 12.1 (10.0-20.0); Blood Urea Nitrogen 14 mg/dL (9-23)
[2024-06-24 15:52] LABS: CRP High Sensitivity 13.44 mg/dL (<1.0)
[2024-06-24 15:52] LABS: Sodium 135 mmol/L (136-145)
--- NOTE | 2024-06-24 15:58 | DVH ---
EXAM: XY CHEST XRAY 1 VIEW TECHNIQUE: Single frontal chest radiograph CLINICAL HISTORY: pre op COMPARISON: None Findings/Impression: Frontal chest radiograph demonstrates no acute osseous or superficial soft tissue abnormalities. Righ t chest wall dual-chamber pacemaker. The trachea is midline. The cardiac silhouette and mediastinum are within normal limits. No pneumothorax, pleural effusions, or consolidations.
[2024-06-24 16:09] LABS: Glucose 286 mg/dL (74-106)
[2024-06-24 17:00] VITALS: BP 152/64; PULSE 86; RESP 16; TEMP 99.1; O2SAT 96
[2024-06-24] MEDS: cefTRIAXone 1GM/50ML D5W 50 ML IV SCH (20:04)
[2024-06-24 21:00] VITALS: BP 152/62; PULSE 80; RESP 17; TEMP 97.8; O2SAT 97
[2024-06-24] MEDS ORDERED: cefTRIAXone 1GM/50ML D5W 50 ML IV SCH (21:00)
[2024-06-24] MEDS: TACROLIMUS 1 MG CAP PO SCH (23:17)
[2024-06-24] MEDS: MYCOPHENOLATE 500 MG TAB PO SCH (23:18)
[2024-06-25 05:00] VITALS: BP 150/60; PULSE 75; RESP 17; TEMP 97.5; O2SAT 97
[2024-06-25 06:24] LABS: Anion Gap 9 (5-15); Carbon Dioxide 23 mmol/L (20-31); Chloride 104 mmol/L (98-107); Potassium 4.4 mmol/L (3.5-5.1); Sodium 136 mmol/L (136-145)
[2024-06-25 06:25] LABS: Calcium 9.7 mg/dL (8.7-10.4)
[2024-06-25 06:30] LABS: BUN/Creatinine Ratio 18.8 (10.0-20.0); Blood Urea Nitrogen 16 mg/dL (9-23)
[2024-06-25 06:33] LABS: Glucose 175 mg/dL (74-106)
[2024-06-25] MEDS: NIFEdipine ER 30 MG TAB PO SCH (08:48)
[2024-06-25] MEDS: FLORASTOR (S. BOULARDII) 250 MG CAP PO SCH (08:52)
[2024-06-25] MEDS: predniSONE 5 MG TAB PO SCH (08:52)
[2024-06-25 09:00] VITALS: BP 173/60; PULSE 74; RESP 20; TEMP 97.9; O2SAT 100
[2024-06-25] MEDS ORDERED: NIFEdipine ER 30 MG TAB PO SCH (10:00)
--- NOTE | 2024-06-25 11:03 | DVHPN2 ---
Subjective Patient continues to report having foot pain Reviewed: Care Plan, H&P, Labs, Medications Changes from previous H/P or p: No Changes General: Per HPI Objective Vitals Vital Signs Date Time Temp Pulse Resp B/P (MAP) Pulse Ox O2 Delivery O2 Flow Rate FiO2 06/25/24 09:00 97.9 74 20 173/60 (97) 100 97.9 06/24/24 20:00 Room Air* 0 21 Intake/Output Intake and Output 06/25/24 07:00 Intake Total 1350 ml Balance 1350 ml Intake Oral 1350 ml # Voids 5 # Bowel Movements 2 General Appearance: Alert, Oriented X3, Cooperative, mild distress HEENT: Atraumatic, PERRLA Neck: Carotid [place] Lungs: Normal air movement Cardiovascular: Normal S1, Normal S2 Abdomen: Normal bowel sounds Genitourinary: No Apparent Abnormalities Musculoskeletal: Normal sensory function Extremities: Other (Wound to right foot. Dressing dry and intact) Neuro: Normal speech Skin: Dry, Intact, Wounds (See nurse notes and pictures) Psych/Mental Status: Mental status NL, Mood NL Medications Current Medications Medications Dose Ordered Sig/Xi Route Start Time Stop Time Status Last Admin Dose Admin Ceftriaxone Sodium 50 ml @ 100 mls/hr DAILY@2100 IV 06/24/24 21:00 06/24/24 20:04 100 MLS/HR Prednisone 5 mg DAILY PO 06/25/24 10:00 06/25/24 08:52 5 MG Mycophenolate Mofetil 500 mg BID PO 06/24/24 22:00 06/25/24 08:49 500 MG Tacrolimus 5 mg BID PO 06/24/24 22:00 06/25/24 08:52 5 MG Diagnostic Test (Pha) 1 strip Q6HR 06/24/24 12:00 06/25/24 06:19 1 STRIP Insulin Human Regular Q6HR SC 06/24/24 12:00 06/25/24 06:18 3 UNITS Dextrose 50 ml UD PRN IV 06/24/24 10:15 Ondansetron HCl 4 mg Q4HP PRN IV 06/24/24 10:15 Acetaminophen 650 mg Q6HP PRN PO 06/24/24 10:15 06/25/24 03:15 650 MG Clindamycin Phosphate 50 ml @ 50 mls/hr Q8H IV 06/24/24 10:15 06/25/24 08:52 50 MLS/HR Sodium Chloride 1,000 ml @ 75 mls/hr [id number] IV 06/24/24 14:30 06/24/24 14:57 75 MLS/HR Saccharomyces Boulardii 250 mg DAILY PO 06/25/24 10:00 06/25/24 08:52 250 MG Hydromorphone HCl 0.25 mg Q4HPRN PRN IV 06/24/24 14:30 Nifedipine 60 mg DAILY PO 06/25/24 10:00 06/25/24 08:48 60 MG Hydralazine HCl 10 mg Q6HP PRN IV 06/25/24 11:00 UNV Laboratory Results Laboratory Tests 06/24/24 14:57 06/25/24 05:34 Chemistry Test 06/24/24 14:57 06/25/24 05:34 Calcium Level 9.3 mg/dL (8.7-10.4) 9.7 mg/dL (8.7-10.4) Lipid panel Test 06/24/24 14:27 Cholesterol Level 142 mg/dL (< 200) HDL Cholesterol 45 mg/dL (40-59) Triglycerides Level 164 mg/dL (< 150) H HgA1c, TSH Test 06/24/24 14:57 Hemoglobin A1c 9.7 % A1C (<5.7) H Urinalysis Test 06/23/24 17:54 Urine Color Light-yellow (Yellow) Urine Clarity Clear (Clear) Urine pH 5.0 (5.0-9.0) Urine Specific [place] 1.025 (1.001-1.035) Urine Protein Negative (Negative) Urine Ketones Negative (Negative) Urine Blood Negative /uL (Negative) Urine Nitrite Negative (Negative) Urine Bilirubin Negative (Negative) Urine Urobilinogen Normal mg/dL (Negative) Urine Leukocyte Esterase Negative /uL (Negative) Urine RBC <1 /hpf (0 - 4) Urine Microscopic WBC 1 /HPF (0-5) Urine Squamous Epithelial Cells Few /hpf (<5) Urine Bacteria None seen /hpf (None Seen) Urine Glucose 4+ mg/dL (Normal) H Microbiology Microbiology Date/Time Source Procedure Growth Status 06/23/24 12:56 Foot Right Gram Stain - Final Resulted 06/23/24 12:56 Foot Right Wound Culture - Preliminary Resulted Labs and/or images reviewed: Labs reviewed by me, Image(s) reviewed by me Assessment/Plan Assessment/Plan Impression: -sepsis -diabetes mellitus: Uncontrolled with A1c at 9.7 -probable right foot osteomyelitis -obesity -accelerated hypertension -history of liver and renal transplant -CKD stage IIIa -hypertriglyceridemia Plan: Events: Plans for surgery today. Noted to have accelerated hypertension. -pain management -podiatry consultation: Recommendations reviewed -continue Rocephin and clindamycin -continue Florastor -regular insulin sliding scale -check lipid and A1c -continue Prograf and CellCept, prednisone -continue antihypertensives: Add hydralazine p.r.n. Total time spent with patient discussing and formulating plan of care: 35 minutes. This medical document was created using an electronic medical record system with [employer] dictation system. Although this document has been carefully reviewed, there may still be some phonetic and typographical errors. These areas are purely typographical due to imperfections of the software programs, and do not reflect any compromise in the patient's medical care. Plan discussed with: Patient, Other (RN) My Orders Orders - NYDIA CASTREJON NP Procedure Category Date Status Time Sodium Chloride 0.9% PHA 06/24/24 In Process 14:30 Florastor (S. PHA 06/25/24 In Process Boulardii) (Florastor) 10:00 Chest Xray 1 View XY 06/24/24 Resulted 14:25 Hydromorphone PHA 06/24/24 In Process Injection (Dilaudid 14:30 Nifedipine Er PHA 06/25/24 In Process (Procardia Xl 10:00 Cleanse Wound With NEERAJ 06/24/24 In Process Wound Clean 11:38 * Dietary Consult CONS 06/24/24 Transmitted 14:44 Comprehensive LAB 06/25/24 Logged Metabolic Panel 10:57 Complete Blood Count LAB 06/26/24 Verified 04:00 Hydralazine Injection PHA 06/25/24 Logged (Apresoline Inject 11:00 Date of Service: Jun 25, 2024 Billing Provider: NYDIA CASTREJON NP Common Visit Codes: [id number] INP/OBS CARE(HIGH) NYDIA CASTREJON NP Jun 25, 2024 11:03
[2024-06-25] MEDS: BUPIVACAINE HCL 0.25% P/F 10 ML VIAL ONE (11:12)
[2024-06-25 11:21] LABS: Albumin 4.1 g/dL (3.2-4.8); Anion Gap 9 (5-15); Aspartate Aminotransferase 25 U/L (13-40); BUN/Creatinine Ratio 16.1 (10.0-20.0); Blood Urea Nitrogen 15 mg/dL (9-23); Calcium 9.6 mg/dL (8.7-10.4); Carbon Dioxide 22 mmol/L (20-31); Chloride 105 mmol/L (98-107); Potassium 4.6 mmol/L (3.5-5.1); Sodium 136 mmol/L (136-145); Total Protein 7.4 g/dL (5.7-8.2)
[2024-06-25 11:23] LABS: Alanine Aminotransferase 56 U/L (7-40); Alkaline Phosphatase 198 U/L (46-116); Bilirubin, Total 0.2 mg/dL (0.2-1.0); Glucose 174 mg/dL (74-106)
[2024-06-25] MEDS: hydrALAZINE HCL 20 MG/ML VL IV PRN (11:39)
[2024-06-25] MEDS ORDERED: PROPOFOL 10 MG/ML 20 ML IV ONE (11:50)
[2024-06-25] MEDS ORDERED: fentaNYL CITRATE 100 MCG/2 ML VL ONE (11:50)
[2024-06-25] MEDS ORDERED: ONDANSETRON HCL 4 MG/2 ML VIAL ONE (12:20)
--- NOTE | 2024-06-25 12:53 | DVHPN2 ---
Subjective 64-year-old female presents for evaluation of right foot wound. Patient reports having a chronic wound that has been going on for more than a year. She states that over the past four days she has noticed her right foot becoming more swollen, tender with redness. Denies fever or chills. Denies any trauma to the area. No other acute complaints reported. Reviewed: Care Plan, H&P, Labs, Medications Changes from previous H/P or p: No Changes General: Per HPI Objective Vitals Vital Signs Date Time Temp Pulse Resp B/P (MAP) Pulse Ox O2 Delivery O2 Flow Rate FiO2 06/25/24 11:39 158/65 06/25/24 09:00 97.9 74 20 100 97.9 06/24/24 20:00 Room Air* 0 21 Intake/Output Intake and Output 06/25/24 07:00 Intake Total 1350 ml Balance 1350 ml Intake Oral 1350 ml # Voids 5 # Bowel Movements 2 Exam DERMATOLOGIC EXAM: - Skin is dry and cool to the touch dry bilaterally. - Nails 1-5 of the bilateral foot are thickened, discolored, dystrophic, and tender to palpate with subungual debris - Hair loss noted to bilateral feet Wound #1: Location: Right plantar foot Measurements: Length 1 cm x width 1 cm x depth 1 cm. Wound margins: Hyperkeratotic. Wound base: Full thickness. General Appearance: Healthy and bleeding. Probes to Bone: yes Purulent drainage: yes Serous drainage: No Erythema: Periwound VASCULAR EXAM: - DP and PT pulses are palpable bilaterally. - GRAVITY PROSPECTOR is brisk to all digits. - Feet are cool to touch compared to lower legs bilaterally. NEUROLOGIC EXAM: - Normal light touch sensation to the superficial peroneal, deep peroneal, sural, saphenous, and tibial nerve branches. - Protective sensation is diminished as tested with a 5.07 10g [place] bilaterally. MUSCULOSKELETAL EXAM: - No gross deformities - Muscle strength is 5/5 and active motion is pain-free and symmetrical bilaterally - No pain or crepitation with passive range of motion bilaterally to all major pedal joints General Appearance: Alert, Oriented X3, Cooperative, mild distress HEENT: Atraumatic, PERRLA Neck: Carotid Bruits [place] Lungs: Normal air movement Cardiovascular: Normal S1, Normal S2 Abdomen: Normal bowel sounds Genitourinary: No Apparent Abnormalities Musculoskeletal: Normal sensory function Extremities: Other (Wound to right foot. Dressing dry and intact) Neuro: Normal speech Skin: Dry, Intact, Wounds (See nurse notes and pictures) Psych/Mental Status: Mental status NL, Mood NL Medications Current Medications Medications Dose Ordered Sig/Xi Route Start Time Stop Time Status Last Admin Dose Admin Ceftriaxone Sodium 50 ml @ 100 mls/hr DAILY@2100 IV 06/24/24 21:00 06/24/24 20:04 100 MLS/HR Prednisone 5 mg DAILY PO 06/25/24 10:00 06/25/24 08:52 5 MG Mycophenolate Mofetil 500 mg BID PO 06/24/24 22:00 06/25/24 08:49 500 MG Tacrolimus 5 mg BID PO 06/24/24 22:00 06/25/24 08:52 5 MG Diagnostic Test (Pha) 1 strip Q6HR 06/24/24 12:00 06/25/24 12:00 1 STRIP Insulin Human Regular Q6HR SC 06/24/24 12:00 06/25/24 12:35 3 UNITS Dextrose 50 ml UD PRN IV 06/24/24 10:15 Ondansetron HCl 4 mg Q4HP PRN IV 06/24/24 10:15 Acetaminophen 650 mg Q6HP PRN PO 06/24/24 10:15 06/25/24 03:15 650 MG Clindamycin Phosphate 50 ml @ 50 mls/hr Q8H IV 06/24/24 10:15 06/25/24 08:52 50 MLS/HR Sodium Chloride 1,000 ml @ 75 mls/hr [id number] IV 06/24/24 14:30 06/24/24 14:57 75 MLS/HR Saccharomyces Boulardii 250 mg DAILY PO 06/25/24 10:00 06/25/24 08:52 250 MG Hydromorphone HCl 0.25 mg Q4HPRN PRN IV 06/24/24 14:30 Nifedipine 60 mg DAILY PO 06/25/24 10:00 06/25/24 08:48 60 MG Hydralazine HCl 10 mg Q6HP PRN IV 06/25/24 11:00 06/25/24 11:39 10 MG Laboratory Results Laboratory Tests 06/24/24 14:57 06/25/24 05:34 Chemistry Test 06/24/24 14:57 06/25/24 05:34 Calcium Level 9.3 mg/dL (8.7-10.4) 9.6 mg/dL (8.7-10.4) Albumin 4.1 g/dL (3.2-4.8) Total Protein 7.4 g/dL (5.7-8.2) Lipid panel Test 06/24/24 14:27 Cholesterol Level 142 mg/dL (< 200) HDL Cholesterol 45 mg/dL (40-59) Triglycerides Level 164 mg/dL (< 150) H LFT Test 06/25/24 05:34 Alanine Aminotransferase (ALT) 56 U/L (7-40) H Alkaline Phosphatase 198 U/L (46-116) H Aspartate Amino Transferase (AST) 25 U/L (13-40) Total Bilirubin 0.2 mg/dL (0.2-1.0) HgA1c, TSH Test 06/24/24 14:57 Hemoglobin A1c 9.7 % A1C (<5.7) H Urinalysis Test 06/23/24 17:54 Urine Color Light-yellow (Yellow) Urine Clarity Clear (Clear) Urine pH 5.0 (5.0-9.0) Urine Specific [place] 1.025 (1.001-1.035) Urine Protein Negative (Negative) Urine Ketones Negative (Negative) Urine Blood Negative /uL (Negative) Urine Nitrite Negative (Negative) Urine Bilirubin Negative (Negative) Urine Urobilinogen Normal mg/dL (Negative) Urine Leukocyte Esterase Negative /uL (Negative) Urine RBC <1 /hpf (0 - 4) Urine Microscopic WBC 1 /HPF (0-5) Urine Squamous Epithelial Cells Few /hpf (<5) Urine Bacteria None seen /hpf (None Seen) Urine Glucose 4+ mg/dL (Normal) H Microbiology Microbiology Date/Time Source Procedure Growth Status 06/23/24 12:56 Foot Right Gram Stain - Final Resulted 3 12:56 Foot Right Wound Culture - Preliminary Resulted Assessment/Plan Assessment/Plan ASSESSMENT: Patient is a 64 year old seen on the floor for a worsening ulcer PLAN: - The patients chart was reviewed, clinical findings were discussed with the patient, the etiologies of the conditions were discussed in detail, and a treatment plan was agreed to at this time, with both oral and written instructions provided. - reviewed advanced imaging - discussed plan is to perform an incision and drainage with bone biopsy and exostectomy - patient has been NPO since midnight - take him to the OR today - we will get cultures in the OR - can weightbear as tolerated in postoperative shoe All questions were answered and concerns addressed to the patient's satisfaction. The patient was given the phone number to the clinic and was told how to make contact with the clinic should any concerns or questions arise. Patient understands that if any questions or concerns arise prior to the next appointment, we should be contacted immediately. FOLLOW-UP: Continue to follow while inpatient Plan discussed with: Patient My Orders Orders - LITO DUONG DPM Procedure Category Date Status Time Npo After Midnight ORDERS 06/24/24 Transmitted Npo (Nothing By DIET 06/25/24 Transmitted Mouth) Diet Breakfast Obtain Consent For: ORDERS 06/24/24 Transmitted 13:22 Problem List: (1) Right foot infection (2) Uncontrolled diabetes mellitus (3) Hyperkalemia (4) Hypochloremia (5) Hypermagnesemia (6) Acute renal failure (7) Cardiac pacemaker in situ (8) Ascites (9) Diverticulosis (10) Edema (11) Headache (12) CHF (congestive heart failure) (13) Cirrhosis of liver (14) Sinusitis (15) Anemia, iron deficiency (16) Epigastric abdominal pain (17) Epigastric pain (18) UTI (urinary tract infection) (19) Diabetic retinopathy (20) Nausea and vomiting (21) Chest pain (22) Diabetic nephropathy (23) Hypertension (24) Pneumonia (25) Acute appendicitis (26) HTN (hypertension) (27) URI (upper respiratory infection) (28) Gastric peptic ulcer (29) Accelerated hypertension (30) Metabolic encephalopathy (31) Elevated liver enzymes (32) Elevated LFTs (33) Musculoskeletal chest pain (34) End stage renal failure on dialysis (35) End stage renal disease on dialysis (36) ESRD on dialysis (37) Scalp contusion (38) Elevated alkaline phosphatase level (39) Chronic kidney disease, stage 3 (40) Elevated bilirubin (41) Hypertensive emergency, no CHF (42) ESRD needing dialysis (43) Anemia in chronic kidney disease (CKD) (44) Uncontrolled hypertension (45) Intractable abdominal pain (46) Intractable abdominal pain (47) Gastritis determined by endoscopy (48) Shortness of breath with exposure to severe acute respiratory syndrome coronavirus 2 (SARS-CoV-2) (49) Muscle pain (50) possible reaction to statin medication (51) mild anemia (52) rule out DVT (53) uncontrolled diabetes (54) Diabetes mellitus (55) Unstable angina pectoris (56) Atypical chest pain (57) Hypertension (58) Chest pain (59) ACS (acute coronary syndrome) (60) CHEST PAIN NOS (61) INTERMED CORONARY SYND Date of Service: Jun 25, 2024 Billing Provider: LITO DUONG DPM Common Visit Codes: [id number] INP/OBS CARE(HIGH) LITO DUONG DPM Jun 25, 2024 12:53
[2024-06-25 13:00] VITALS: BP 158/65; PULSE 77; RESP 17; TEMP 97.9; O2SAT 100
[2024-06-25 13:32] VITALS: PULSE 83; RESP 17; O2SAT 95
--- NOTE | 2024-06-25 13:52 | DVHOP2 ---
Operative Report - 2 Report Details Date: 06/25/24 Preop Diagnosis: 1. Right foot chronic ulcer 2. Right foot osteomyelitis 3. Right foot abscess 4. Right foot exostosis Postop Diagnosis: Same as preop Surgeon: Lito Duong MD Anesthesiologist: See anesthesia Anesthesia: Mac Consent: The patient was informed of the risks and benefits of the procedure. These include but are not limited to complications of anesthesia, postoperative infection, incomplete relief of symptoms, recurrence of symptoms, damage to blood vessels, nerves and tendons, deep venous thrombosis, pulmonary embolism and possible need for repeat surgery in the future. Complications: None Estimated Blood Loss: Minimal Fluids: See anesthesia Findings: Consistent with the diagnosis Indications for Surgery: Worsening right foot wound Name of Procedure Performed 1. Right foot I&D to bone (48482) 2. Right midfoot exostectomy (22981) Procedure Details Procedure Details: PRE-PROCEDURE INFORMATION: In the pre-op holding area, the extremity to be operated on was clearly marked and the patient verified correct laterality of the marking. The patient was transferred to the OR table and placed in a supine position. A timeout was performed in which identification of the correct patient, procedure, location, and materials was done. The right foot and leg were prepped and draped in normal sterile fashion. DESCRIPTION OF PROCEDURE: Attention was directed to the right where area of fluctuance was noted. An incision was made over this area and was deepened through blunt dissection. The incision was deepened to the level of abscess and bone. Care was taken to the dissection to avoid any neurovascular and tendinous structures. The incision was deepened to the bone, and the abscess appeared to be purulent fluid consistent with pus. The cortices of the bone was then removed with Carmine an all necrotic tissue. After the abscess was drained, the area was irrigated with 3 L normal saline using cysto tubing. Deep cultures were then obtained from the wound. The area was then inspected and any areas of tracking, especially along the tendons were also drained. Using an MIS bur, the bony prominence that was causing the wound was then removed in its entirety and the excision of the midfoot bone was performed and closed with 2-0 nylon. The wound was packed with Betadine-soaked gauze. POSTOPERATIVE INFORMATION: The patient tolerated the above noted procedure and anesthesia well and was transferred to the PACU with vital signs stable, and vascular status intact with capillary refill intact to all digits. Deep cultures were taken and patient will return to the floor. Patient will need 6 weeks of IV antibiotics. Patient can weightbear as tolerated in a postoperative shoe. Condition Good Disposition Still a Patient LITO DUONG DPM Jun 25, 2024 13:52
[2024-06-25] MEDS: HYDROmorphone HCL 2 MG/ML VL/or syr IV PRN (15:05)
[2024-06-25] MEDS: ONDANSETRON HCL 4 MG/2 ML VIAL IV PRN (16:28)
[2024-06-25 16:59] VITALS: BP 113/53; PULSE 82; RESP 16; TEMP 97.6; O2SAT 97
[2024-06-25 21:00] VITALS: BP 153/58; PULSE 84; RESP 16; TEMP 97.4; O2SAT 94
[2024-06-26] VITALS (7 sets, daily range): BP systolic 123–146; BP diastolic 43–54; PULSE 85–112; RESP 16–24; TEMP 98.2–100.6; O2SAT 91–96
[2024-06-26 06:50] LABS: Basophils # (auto) 0 10 ^3/uL (0-0.2); Basophils % (auto) 0.6 % (0.0-2.0); Eosinophils # (auto) 0.2 10 ^3/uL (0-0.8); Eosinophils % (auto) 2.2 % (0.0-7.0); Hematocrit 32.2 % (36.0-46.0); Hemoglobin 10.7 g/dL (12.2-16.2); Lymphocytes # (auto) 1.4 10 ^3/uL (0.4-5.4); Lymphocytes % (auto) 18.9 % (10.0-50.0); Mean Corpuscular Hemoglobin 29.1 pg (28.0-32.0); Mean Corpuscular Hgb Conc. 33.3 g/dL (32.0-36.0); Mean Corpuscular Volume 87.4 fL (80.0-100.0); Monocytes # (auto) 0.6 10 ^3/uL (0-1.3); Neutrophils # (auto) 5.2 10 ^3/uL (1.6-8.6); Neutrophils % (auto) 70.3 % (37.0-80.0); Platelet Count (auto) 299 10^3/uL (140-450); Red Blood Cells 3.68 10^6/uL (4.0-5.20); Red Cell Distribution Width 14.4 % (11.8-14.3); White Blood Cell 7.3 10^3/uL (4.4-10.8)
[2024-06-26] MEDS ORDERED: VANCOMYCIN PER PHARMACY 0 MG IV SCH (18:15)
[2024-06-26] MEDS: HYDROmorphone HCL 2 MG/ML VL/or syr IV PRN (19:59)
[2024-06-26] MEDS: VANCOMYCIN 1GM/250ML KIT 250 ML IV ONE (20:21)
[2024-06-27] VITALS (7 sets, daily range): BP systolic 139–161; BP diastolic 42–65; PULSE 76–91; RESP 16–20; TEMP 98.1–98.3; O2SAT 91–95
[2024-06-27 07:01] LABS: Basophils # (auto) 0.1 10 ^3/uL (0-0.2); Basophils % (auto) 0.6 % (0.0-2.0); Eosinophils # (auto) 0.2 10 ^3/uL (0-0.8); Eosinophils % (auto) 2.1 % (0.0-7.0); Hematocrit 32.1 % (36.0-46.0); Hemoglobin 10.6 g/dL (12.2-16.2); Lymphocytes # (auto) 1.5 10 ^3/uL (0.4-5.4); Lymphocytes % (auto) 17.2 % (10.0-50.0); Mean Corpuscular Hgb Conc. 33.1 g/dL (32.0-36.0); Mean Corpuscular Volume 87.7 fL (80.0-100.0); Monocytes # (auto) 0.7 10 ^3/uL (0-1.3); Monocytes % (auto) 8.2 % (0.0-12.0); Neutrophils # (auto) 6.1 10 ^3/uL (1.6-8.6); Neutrophils % (auto) 71.9 % (37.0-80.0); Platelet Count (auto) 297 10^3/uL (140-450); Red Blood Cells 3.66 10^6/uL (4.0-5.20); Red Cell Distribution Width 14.5 % (11.8-14.3); White Blood Cell 8.5 10^3/uL (4.4-10.8)
[2024-06-27 07:04] LABS: Anion Gap 8 (5-15); Carbon Dioxide 23 mmol/L (20-31); Chloride 103 mmol/L (98-107); INR 1.03 (0.9-1.15); Partial Thromboplastin Time 35.9 SEC (24.5-34.5); Potassium 4.4 mmol/L (3.5-5.1); Prothrombin Time 10.9 sec (9.3-11.8); Sodium 134 mmol/L (136-145)
[2024-06-27 07:06] LABS: Calcium 9.4 mg/dL (8.7-10.4)
[2024-06-27 07:10] LABS: BUN/Creatinine Ratio 11.6 (10.0-20.0); Blood Urea Nitrogen 11 mg/dL (9-23)
[2024-06-27 07:15] LABS: Glucose 153 mg/dL (74-106)
--- NOTE | 2024-06-27 11:15 | DVHPN2 ---
Subjective Patient reports that her right foot pain has improved. Reviewed: Care Plan, H&P, Labs, Medications Changes from previous H/P or p: No Changes General: Per HPI Objective Vitals Vital Signs Date Time Temp Pulse Resp B/P (MAP) Pulse Ox O2 Delivery O2 Flow Rate FiO2 06/27/24 09:29 153/53 06/27/24 09:00 98.3 86 16 92 98.3 06/27/24 08:10 Room Air* 0 21 Intake/Output Intake and Output 06/27/24 07:00 Intake Total 1300 ml Balance 1300 ml Intake Oral 1100 ml IV Total 200 ml # Voids 4 General Appearance: Alert, Oriented X3, Cooperative, mild distress HEENT: Atraumatic, PERRLA Neck: Carotid Bruits [place] Lungs: Normal air movement Cardiovascular: Normal S1, Normal S2 Abdomen: Normal bowel sounds Genitourinary: No Apparent Abnormalities Musculoskeletal: Normal sensory function Extremities: Other (Wound to right foot. Dressing dry and intact) Neuro: Normal speech Skin: Dry, Intact, Wounds (See nurse notes and pictures) Psych/Mental Status: Mental status NL, Mood NL Medications Current Medications Medications Dose Ordered Sig/Xi Route Start Time Stop Time Status Last Admin Dose Admin Prednisone 5 mg DAILY PO 06/25/24 10:00 06/27/24 09:29 5 MG Mycophenolate Mofetil 500 mg BID PO 06/24/24 22:00 06/27/24 09:31 500 MG Tacrolimus 5 mg BID PO 06/24/24 22:00 06/27/24 09:29 5 MG Diagnostic Test (Pha) 1 strip Q6HR 06/24/24 12:00 06/27/24 06:00 1 STRIP Insulin Human Regular Q6HR SC 06/24/24 12:00 06/27/24 06:55 2 UNITS Dextrose 50 ml UD PRN IV 06/24/24 10:15 Ondansetron HCl 4 mg Q4HP PRN IV 06/24/24 10:15 06/25/24 16:28 4 MG Acetaminophen 650 mg Q6HP PRN PO 06/24/24 10:15 06/27/24 07:39 650 MG Sodium Chloride 1,000 ml @ 75 mls/hr [id number] IV 06/24/24 14:30 06/27/24 09:12 75 MLS/HR Saccharomyces Boulardii 250 mg DAILY PO 06/25/24 10:00 06/27/24 09:30 250 MG Nifedipine 60 mg DAILY PO 06/25/24 10:00 06/27/24 09:29 60 MG Hydralazine HCl 10 mg Q6HP PRN IV 06/25/24 11:00 06/25/24 11:39 10 MG Vancomycin HCl 0 ml @ 0 mls/hr UD IV 06/26/24 18:15 Hydromorphone HCl 0.5 mg Q4HPRN PRN IV 06/26/24 18:30 06/26/24 19:59 0.5 MG Ceftriaxone Sodium/Dextrose 50 ml @ 50 mls/hr DAILY IV 06/27/24 21:00 07/01/24 20:59 Vancomycin HCl 250 ml @ 250 mls/hr Q12H IV 06/27/24 10:45 Laboratory Results Laboratory Tests 06/27/24 06:22 Chemistry Test 06/27/24 06:22 Calcium Level 9.4 mg/dL (8.7-10.4) Coagulation Test 06/27/24 06:22 Prothrombin Time 10.9 sec (9.3-11.8) Prothrombin Time INR 1.03 (0.9-1.15) Activated Partial Thromboplast Time 35.9 SEC (24.5-34.5) H Urinalysis Test 06/23/24 17:54 Urine Color Light-yellow (Yellow) Urine Clarity Clear (Clear) Urine pH 5.0 (5.0-9.0) Urine Specific [place] 1.025 (1.001-1.035) Urine Protein Negative (Negative) Urine Ketones Negative (Negative) Urine Blood Negative /uL (Negative) Urine Nitrite Negative (Negative) Urine Bilirubin Negative (Negative) Urine Urobilinogen Normal mg/dL (Negative) Urine Leukocyte Esterase Negative /uL (Negative) Urine RBC <1 /hpf (0 - 4) Urine Microscopic WBC 1 /HPF (0-5) Urine Squamous Epithelial Cells Few /hpf (<5) Urine Bacteria None seen /hpf (None Seen) Urine Glucose 4+ mg/dL (Normal) H Microbiology Microbiology Date/Time Source Procedure Growth Status 06/25/24 14:00 Foot Right Gram Stain - Final Resulted 06/25/24 14:00 Foot Right Anaerobic Culture Pending Resulted 06/25/24 14:00 Foot Right Aerobic Culture - Preliminary Resulted Labs and/or images reviewed: Labs reviewed by me, Image(s) reviewed by me Assessment/Plan Assessment/Plan Impression: -sepsis -diabetes mellitus: Uncontrolled with A1c at 9.7 -probable right foot osteomyelitis -obesity -accelerated hypertension -history of liver and renal transplant -CKD stage IIIa -hypertriglyceridemia Plan: Events: Patient reports that her pain has improved with new pain regimen. Blood sugars controlled. -PICC line placement order. We will also get nephrology consultation for okay of line placement. -pain management -podiatry consultation: Recommendations reviewed -change antibiotic therapy to vancomycin given Staphylococcus aureus. -continue Florastor -regular insulin sliding scale -continue Prograf and CellCept, prednisone -continue antihypertensives: Add hydralazine p.r.n. -repeat labs in a.m. -social service consultation for discharge planning Total time spent with patient discussing and formulating plan of care: 35 minutes. This medical document was created using an electronic medical record system with [employer] dictation system. Although this document has been carefully reviewed, there may still be some phonetic and typographical errors. These areas are purely typographical due to imperfections of the software programs, and do not reflect any compromise in the patient's medical care. Plan discussed with: Patient, Other (RN) My Orders Orders - NYDIA CASTREJON NP Procedure Category Date Status Time Vancomycin Per PHA 06/26/24 In Process Pharmacy 18:15 * Picc Line Consult CONS 06/26/24 Transmitted 18:13 Hydromorphone PHA 06/26/24 In Process Injection (Dilaudid 18:30 * Pharmacy Operations Manager CONS 06/26/24 Transmitted Consult Ceftriaxone 2gm/50ml PHA 06/27/24 In Process D5w (Rocephin 2gm/5 21:00 Vancomycin 1gm/250ml PHA 06/27/24 In Process Kit 10:45 Vancomycin,Trough LAB 06/28/24 Verified 09:00 Vancomycin Per NEERAJ 06/27/24 In Process Pharmacy Protoc 11:00 Date of Service: Jun 27, 2024 Billing Provider: NYDIA CASTREJON NP Common Visit Codes: [id number] INP/OBS CARE(HIGH) NYDIA CASTREJON NP Jun 27, 2024 11:15
[2024-06-27] MEDS: VANCOMYCIN 1GM/250ML KIT 250 ML IV SCH (11:43)
--- NOTE | 2024-06-27 11:45 | DVHINCON2 ---
Date of service: Jun 27, 2024 Referring Physician Pascual Bhagat NP Reason for Consultation Kidney transplant management History of Present Illness Is bubba Chang is a 64-year-old female with known history of ESRD now status post kidney transplant in 2022 presents for further evaluation and management of chronic right foot wound. Her course in the hospital has been notable for I and D of right foot with diagnosis of deep tissue infection, osteomyelitis. She was seen in her room awake alert conversant and no acute distress. Serum creatinine has been below one. Trough tacrolimus level is pending. Patient is without subjective complaints today. Past Medical History ESRD s/p kidney transplant in 2022 Diabetes Hypertension Dyslipidemia Coronary artery disease Allergies: Coded Allergies: Codeine (Verified Adverse Reaction, Unknown, 02/10/19) N/V Promethazine (Verified Adverse Reaction, Unknown, 02/10/19) N/V Home Meds Active Scripts Lactulose (Lactulose) 10 Gm Federico, 10 GM PO TID for 7 Days, #210 PACK Prov:LAURA LIMA MD 08/17/22 Levofloxacin (Levaquin) 500 Mg Tab, 500 MG PO DAILY, #10 TAB Prov:LAURA LIMA MD 08/17/22 Metronidazole (Flagyl) 500 Mg Tab, 500 MG PO TID, #30 TAB Prov:LAURA LIMA MD 08/17/22 Nifedipine (Nifedipine Er) 30 Mg Tab, 30 MG PO BID for 30 Days, #30 TAB Prov:PARTHA QUIROS MD 02/13/22 Metoprolol Tartrate (Metoprolol Tartrate) 50 Mg Tab, 50 MG PO BID for 30 Days, #60 MG Prov:PARTHA QUIROS MD 02/13/22 Amlodipine Besylate (Amlodipine Besylate) 10 Mg Tab, 1 TAB PO DAILY, #90 TAB 1 Refill Prov:LAURA LIMA MD 12/29/21 Atorvastatin Calcium (ATORVASTATIN CALCIUM) 20 Mg Tab, 20 MG PO HS, #90 TAB Prov:SIVAN PASCUAL MD 09/24/14 Reported Medications Lisinopril (Lisinopril) 20 Mg Tab, 1 TAB PO DAILY, #30 TAB 5 Refills 03/26/22 Atorvastatin Calcium (ATORVASTATIN CALCIUM) 20 Mg Tab, 1 TAB PO DAILY, #30 TAB 5 Refills 10/07/20 Sucralfate (Sucralfate) 1 Gm Tab, 1 GM PO QIDACHS, GM 10/07/20 Insulin NPH Isophane & Reg (Hu (Novolin 70/30 (70-30) 100 Unit/ml) 1 Inj Inj, SC 03/03/20 Aspirin (Aspirin Low Dose) 81 Mg Tab, 1 TAB PO DAILYPRN 03/03/20 Atorvastatin Calcium (ATORVASTATIN CALCIUM) 20 Mg Tab, PO 03/03/20 Amlodipine Besylate (Amlodipine Besylate) 2.5 Mg Tab, 1 TAB PO QAM 03/03/20 Metoprolol Tartrate (LOPRESSOR TABLET) 50 Mg Tb, 1 TAB PO BID 03/03/20 Cephalexin Monohydrate (Cephalexin) 500 Mg Cap, 1 CAP PO QID 03/03/20 Lisinopril (Lisinopril) 20 Mg Tab, PO 03/03/20 Ascorbic Acid (VITAMIN C TABLET) 500 Mg Tb, 1 TAB PO DAILY, #30 TAB 3 Refills 03/23/19 Ferric Citrate (Auryxia) 210 Mg Tab, 210 MG PO TID, TAB 03/23/19 Bisacodyl (Laxative) 5 Mg Tab, 5 MG PO DAILY, TAB 10/23/18 Insulin Isophane & Reg (Human) (Humulin 70/30 (70-30) 100 Unit/ml) 1 Units/0.01 Ml Inj, 20 UNITS SC HS, INJ 05/29/16 Metoprolol Tartrate (Metoprolol Tartrate) 50 Mg Tab, 50 MG PO BID for 30 Days, MG 05/29/16 Aspirin (Aspirin Ec) 81 Mg Tab, 81 MG PO DAILY 10/22/12 Current Medications Current Medications Medications (Trade) Dose Ordered Sig/Xi Route PRN Reason Start Time Stop Time Status Last Admin Vancomycin HCl 0 ml @ 0 mls/hr UD IV 06/26/24 18:15 Hydromorphone HCl (Dilaudid Injection) 0.5 mg Q4HPRN PRN IV MODERATE PAIN (4-6 PAIN SCALE) 06/26/24 18:30 06/26/24 19:59 Ceftriaxone Sodium/Dextrose 50 ml @ 50 mls/hr DAILY IV 06/27/24 21:00 07/01/24 20:59 Ceftriaxone Sodium/Dextrose 50 ml @ 50 mls/hr DAILY IV 06/27/24 21:00 06/27/24 09:38 DC Vancomycin HCl 250 ml @ 250 mls/hr Q12H IV 06/27/24 10:45 Family History: Cancer G8 FATHER (LIVER) Diabetes mellitus G8 MOTHER G8 FATHER G8 MOTHER G8 FATHER G8 MOTHER G8 FATHER Diabetes mellitus G8 MOTHER G8 FATHER G8 MOTHER G8 FATHER G8 MOTHER G8 FATHER Diabetes mellitus G8 MOTHER G8 FATHER G8 MOTHER G8 FATHER G8 MOTHER G8 FATHER FH: cancer G8 FATHER FHx: hypertension Family history: Diabetes mellitus G8 MOTHER G8 FATHER G8 BROTHER G8 BROTHER G8 BROTHER G8 BROTHER G8 BROTHER G8 BROTHER Family history: Hypercholesterolemia (situation) G8 BROTHER G8 BROTHER G8 BROTHER G8 BROTHER G8 BROTHER G8 BROTHER Family history: Hypertension G8 MOTHER Hypertension G8 FATHER G8 MOTHER Hypertension G8 FATHER G8 MOTHER Review of Systems Denies gross hematuria, dysuria, tea or Coca-Cola colored urine Denies excessive use of recent NSAIDs, foamy urine, recent IV contrast studies Denies recent chest pain, dyspnea, PND, orthopnea Denies fever, chills, nausea, vomiting, diarrhea Denies unintentional weight loss, night sweats Denies focal weakness, numbness H&P Exam Vital Signs/I&O Vital Sign Date Time Temp Pulse Resp B/P (MAP) Pulse Ox O2 Delivery O2 Flow Rate FiO2 06/27/24 09:29 153/53 06/27/24 09:00 98.3 86 16 92 98.3 06/27/24 08:10 Room Air* 0 21 Intake and Output 06/26/24 06/27/24 19:00 07:00 Intake Total 950 ml 350 ml Balance 950 ml 350 ml Intake Oral 800 ml 300 ml IV Total 150 ml 50 ml # Voids 2 2 Physical Exam Gen: nad heent: nc/at, mmm lungs: cta anteriorly cvs: no rub abd: soft, bowel sounds audible, no tenderness over her kidney allograft ext: no edema. Right foot dressed in gauze skin: no rash neuro: alert and oriented Labs/Diagnostic Data Labs/Diagnostic Data Laboratory Tests Test 06/27/24 06:22 06/27/24 06:14 06/27/24 01:27 06/26/24 16:53 Range/Units White Blood Count 8.5 4.4-10.8 10^3/uL Red Blood Count 3.66 L 4.0-5.20 10^6/uL Hemoglobin 10.6 L 12.2-16.2 g/dL Hematocrit 32.1 L 36.0-46.0 % Mean Corpuscular Volume 87.7 80.0-100.0 fL Mean Corpuscular Hemoglobin 29.0 28.0-32.0 pg Mean Corpuscular Hemoglobin Concent 33.1 32.0-36.0 g/dL Red Cell Distribution Width 14.5 H 11.8-14.3 % Platelet Count 297 140-450 10^3/uL Mean Platelet Volume 7.6 6.9-10.8 fL Neutrophils (%) (Auto) 71.9 37.0-80.0 % Lymphocytes (%) (Auto) 17.2 10.0-50.0 % Monocytes (%) (Auto) 8.2 0.0-12.0 % Eosinophils (%) (Auto) 2.1 0.0-7.0 % Basophils (%) (Auto) 0.6 0.0-2.0 % Neutrophils # (Auto) 6.1 1.6-8.6 10 ^3/uL Lymphocytes # (Auto) 1.5 0.4-5.4 10 ^3/uL Monocytes # (Auto) 0.7 0-1.3 10 ^3/uL Eosinophils # (Auto) 0.2 0-0.8 10 ^3/uL Basophils # (Auto) 0.1 0-0.2 10 ^3/uL Nucleated Red Blood Cells 0.0 % Prothrombin Time 10.9 9.3-11.8 sec Prothrombin Time INR 1.03 0.9-1.15 Activated Partial Thromboplast Time 35.9 H 24.5-34.5 SEC Sodium Level 134 L 136-145 mmol/L Potassium Level 4.4 3.5-5.1 mmol/L Chloride Level 103 98-107 mmol/L Carbon Dioxide Level 23 20-31 mmol/L Anion Gap 8 5-15 Blood Urea Nitrogen 11 9-23 mg/dL Creatinine 0.95 0.550-1.02 mg/dL Glomerular Filtration Rate Calc 67 >90 mL/min BUN/Creatinine Ratio 11.6 10.0-20.0 Serum Glucose 153 H 74-106 mg/dL Calcium Level 9.4 8.7-10.4 mg/dL Random Vancomycin Level 13.9 H 5-10 ug/mL POC Glucose 160 H 252 H 227 H 70-106 mg/dl Test 06/26/24 11:20 06/26/24 06:14 06/26/24 06:12 06/25/24 23:58 Range/Units POC Glucose 319 H 182 H 236 H 70-106 mg/dl White Blood Count 7.3 4.4-10.8 10^3/uL Red Blood Count 3.68 L 4.0-5.20 10^6/uL Hemoglobin 10.7 L 12.2-16.2 g/dL Hematocrit 32.2 L 36.0-46.0 % Mean Corpuscular Volume 87.4 80.0-100.0 fL Mean Corpuscular Hemoglobin 29.1 28.0-32.0 pg Mean Corpuscular Hemoglobin Concent 33.3 32.0-36.0 g/dL Red Cell Distribution Width 14.4 H 11.8-14.3 % Platelet Count 299 140-450 10^3/uL Mean Platelet Volume 7.9 6.9-10.8 fL Neutrophils (%) (Auto) 70.3 37.0-80.0 % Lymphocytes (%) (Auto) 18.9 10.0-50.0 % Monocytes (%) (Auto) 8.0 0.0-12.0 % Eosinophils (%) (Auto) 2.2 0.0-7.0 % Basophils (%) (Auto) 0.6 0.0-2.0 % Neutrophils # (Auto) 5.2 1.6-8.6 10 ^3/uL Lymphocytes # (Auto) 1.4 0.4-5.4 10 ^3/uL Monocytes # (Auto) 0.6 0-1.3 10 ^3/uL Eosinophils # (Auto) 0.2 0-0.8 10 ^3/uL Basophils # (Auto) 0 0-0.2 10 ^3/uL Nucleated Red Blood Cells 0.0 % Test 06/25/24 18:09 06/25/24 11:44 06/25/24 05:55 06/25/24 05:34 Range/Units POC Glucose 248 H 195 H 191 H 70-106 mg/dl Sodium Level 136 136-145 mmol/L Potassium Level 4.6 3.5-5.1 mmol/L Chloride Level 105 98-107 mmol/L Carbon Dioxide Level 22 20-31 mmol/L Anion Gap 9 5-15 Blood Urea Nitrogen 15 9-23 mg/dL Creatinine 0.93 0.550-1.02 mg/dL Glomerular Filtration Rate Calc 69 >90 mL/min BUN/Creatinine Ratio 16.1 10.0-20.0 Serum Glucose 174 H 74-106 mg/dL Calcium Level 9.6 8.7-10.4 mg/dL Total Bilirubin 0.2 0.2-1.0 mg/dL Aspartate Amino Transferase (AST) 25 13-40 U/L Alanine Aminotransferase (ALT) 56 H 7-40 U/L Alkaline Phosphatase 198 H 46-116 U/L Total Protein 7.4 5.7-8.2 g/dL Albumin 4.1 3.2-4.8 g/dL Test 06/24/24 23:26 06/24/24 17:34 06/24/24 14:57 06/24/24 14:27 Range/Units POC Glucose 268 H 255 H 70-106 mg/dl White Blood Count 6.5 # 4.4-10.8 10^3/uL Red Blood Count 3.79 L 4.0-5.20 10^6/uL Hemoglobin 11.0 L 12.2-16.2 g/dL Hematocrit 33.7 L 36.0-46.0 % Mean Corpuscular Volume 88.9 80.0-100.0 fL Mean Corpuscular Hemoglobin 29.0 28.0-32.0 pg Mean Corpuscular Hemoglobin Concent 32.6 32.0-36.0 g/dL Red Cell Distribution Width 14.2 11.8-14.3 % Platelet Count 283 140-450 10^3/uL Mean Platelet Volume 8.3 6.9-10.8 fL Neutrophils (%) (Auto) 71.8 37.0-80.0 % Lymphocytes (%) (Auto) 18.9 10.0-50.0 % Monocytes (%) (Auto) 5.1 0.0-12.0 % Eosinophils (%) (Auto) 3.4 0.0-7.0 % Basophils (%) (Auto) 0.8 0.0-2.0 % Neutrophils # (Auto) 4.7 1.6-8.6 10 ^3/uL Lymphocytes # (Auto) 1.2 0.4-5.4 10 ^3/uL Monocytes # (Auto) 0.3 0-1.3 10 ^3/uL Eosinophils # (Auto) 0.2 0-0.8 10 ^3/uL Basophils # (Auto) 0.1 0-0.2 10 ^3/uL Nucleated Red Blood Cells 0.0 % Sodium Level 135 #L 136-145 mmol/L Potassium Level 4.9 3.5-5.1 mmol/L Chloride Level 102 98-107 mmol/L Carbon Dioxide Level 25 20-31 mmol/L Anion Gap 8 5-15 Blood Urea Nitrogen 14 9-23 mg/dL Creatinine 1.16 H 0.550-1.02 mg/dL Glomerular Filtration Rate Calc 53 >90 mL/min BUN/Creatinine Ratio 12.1 10.0-20.0 Serum Glucose 286 H 74-106 mg/dL Hemoglobin A1c 9.7 H <5.7 % A1C Calcium Level 9.3 8.7-10.4 mg/dL C-Reactive Protein High Sensitivity 13.44 H <1.0 mg/dL Triglycerides Level 164 H < 150 mg/dL Cholesterol Level 142 < 200 mg/dL LDL Cholesterol 65 < 100 mg/dL HDL Cholesterol 45 40-59 mg/dL Test 06/24/24 12:32 06/24/24 06:29 06/23/24 22:35 06/23/24 17:54 Range/Units POC Glucose 168 H 199 H 70-106 mg/dl Urine Color Light-yellow Yellow Urine Clarity Clear Clear Urine pH 5.0 5.0-9.0 Urine Specific [place] 1.025 1.001-1.035 Urine Protein Negative Negative Urine Ketones Negative Negative Urine Blood Negative Negative /uL Urine Nitrite Negative Negative Urine Bilirubin Negative Negative Urine Urobilinogen Normal Negative mg/dL Urine Leukocyte Esterase Negative Negative /uL Urine RBC <1 0 - 4 /hpf Urine Microscopic WBC 1 0-5 /HPF Urine Squamous Epithelial Cells Few <5 /hpf Urine Bacteria None seen None Seen /hpf Urine Glucose 4+ H Normal mg/dL Test 06/23/24 16:14 06/23/24 15:27 06/23/24 13:09 06/23/24 12:29 Range/Units POC Glucose 286 H 352 H 359 H 70-106 mg/dl White Blood Count 12.5 H 4.4-10.8 10^3/uL Red Blood Count 3.92 L 4.0-5.20 10^6/uL Hemoglobin 11.4 L 12.2-16.2 g/dL Hematocrit 35.2 L 36.0-46.0 % Mean Corpuscular Volume 90.0 80.0-100.0 fL Mean Corpuscular Hemoglobin 29.0 28.0-32.0 pg Mean Corpuscular Hemoglobin Concent 32.2 32.0-36.0 g/dL Red Cell Distribution Width 14.5 H 11.8-14.3 % Platelet Count 290 140-450 10^3/uL Mean Platelet Volume 8.7 6.9-10.8 fL Neutrophils (%) (Auto) 85.0 H 37.0-80.0 % Lymphocytes (%) (Auto) 8.7 L 10.0-50.0 % Monocytes (%) (Auto) 4.5 0.0-12.0 % Eosinophils (%) (Auto) 1.4 0.0-7.0 % Basophils (%) (Auto) 0.4 0.0-2.0 % Neutrophils # (Auto) 10.7 H 1.6-8.6 10 ^3/uL Lymphocytes # (Auto) 1.1 0.4-5.4 10 ^3/uL Monocytes # (Auto) 0.6 0-1.3 10 ^3/uL Eosinophils # (Auto) 0.2 0-0.8 10 ^3/uL Basophils # (Auto) 0 0-0.2 10 ^3/uL Nucleated Red Blood Cells 0.0 % Erythrocyte Sedimentation Rate 90 H 0-20 mm/hr Prothrombin Time 10.2 9.3-11.8 sec Prothrombin Time INR 0.96 0.9-1.15 Activated Partial Thromboplast Time 34.2 24.5-34.5 SEC Sodium Level 130 L 136-145 mmol/L Potassium Level 5.1 3.5-5.1 mmol/L Chloride Level 102 98-107 mmol/L Carbon Dioxide Level 22 20-31 mmol/L Anion Gap 6 5-15 Blood Urea Nitrogen 19 9-23 mg/dL Creatinine 1.23 H 0.550-1.02 mg/dL Glomerular Filtration Rate Calc 49 >90 mL/min BUN/Creatinine Ratio 15.4 10.0-20.0 Serum Glucose 419 *H 74-106 mg/dL Calcium Level 9.5 8.7-10.4 mg/dL Assessment IMP: 1) ESRD status post kidney transplant in 2022 - stable allograft function. Appears euvolemic on exam. Metabolic parameters acceptable 2) right foot deep tissue infection/ osteomyelitis 3) diabetes 4) coronary artery disease 5) hypertension REC: - trough tacrolimus level pending - dosage of vancomycin to desired level - we will continue to follow closely with you. Thank you for the consultation. Plan discussed with: Patient MINA DELA CRUZ MD Jun 27, 2024 11:45
[2024-06-27] MEDS ORDERED: cefTRIAXone 2GM/50ML D5W 50 ML IV SCH (21:00)
[2024-06-28] VITALS (7 sets, daily range): BP systolic 119–158; BP diastolic 43–53; PULSE 81–100; RESP 16–19; TEMP 98–98.7; O2SAT 91–94
[2024-06-28] MEDS: VANCOMYCIN 1GM/250ML KIT 250 ML IV SCH (02:53)
[2024-06-28] MEDS: cefTRIAXone 2GM/50ML D5W 50 ML IV SCH (04:09)
[2024-06-28] MEDS: fentaNYL CITRATE 100 MCG/2 ML VL ONE ×2 (12:32→13:13)
[2024-06-28] MEDS: MIDAZOLAM HCL 2MG/2ML 2ml VIAL (1mg/ml) ONE ×2 (12:32→13:13)
[2024-06-28] MEDS: ceFAZolin 1GM VL ONE (12:33)
--- NOTE | 2024-06-28 12:57 | DVHPN2 ---
Subjective Patient reports that her right foot pain has improved. Reviewed: Care Plan, H&P, Labs, Medications Changes from previous H/P or p: No Changes General: Per HPI Objective Vitals Vital Signs Date Time Temp Pulse Resp B/P (MAP) Pulse Ox O2 Delivery O2 Flow Rate FiO2 06/28/24 10:31 145/48 06/28/24 09:05 98.0 86 18 91 98.0 06/28/24 08:00 Room Air* 0 21 Intake/Output Intake and Output 06/28/24 07:00 Intake Total 2550 ml Balance 2550 ml Intake Oral 1200 ml IV Total 1350 ml # Voids 5 # Bowel Movements 2 General Appearance: Alert, Oriented X3, Cooperative, mild distress HEENT: Atraumatic, PERRLA Neck: Carotid [place] Lungs: Normal air movement Cardiovascular: Normal S1, Normal S2 Abdomen: Normal bowel sounds Genitourinary: No Apparent Abnormalities Musculoskeletal: Normal sensory function Extremities: Other (Wound to right foot. Dressing dry and intact) Neuro: Normal speech Skin: Dry, Intact, Wounds (See nurse notes and pictures) Psych/Mental Status: Mental status NL, Mood NL Medications Current Medications Medications Dose Ordered Sig/Xi Route Start Time Stop Time Status Last Admin Dose Admin Prednisone 5 mg DAILY PO 06/25/24 10:00 06/28/24 10:31 5 MG Mycophenolate Mofetil 500 mg BID PO 06/24/24 22:00 06/28/24 10:32 500 MG Tacrolimus 5 mg BID PO 06/24/24 22:00 06/28/24 10:31 5 MG Dextrose 50 ml UD PRN IV 06/24/24 10:15 Ondansetron HCl 4 mg Q4HP PRN IV 06/24/24 10:15 06/27/24 16:56 4 MG Acetaminophen 650 mg Q6HP PRN PO 06/24/24 10:15 06/27/24 07:39 650 MG Saccharomyces Boulardii 250 mg DAILY PO 06/25/24 10:00 06/28/24 10:33 250 MG Nifedipine 60 mg DAILY PO 06/25/24 10:00 06/28/24 10:31 60 MG Hydralazine HCl 10 mg Q6HP PRN IV 06/25/24 11:00 06/28/24 07:50 10 MG Vancomycin HCl 0 ml @ 0 mls/hr UD IV 06/26/24 18:15 Hydromorphone HCl 0.5 mg Q4HPRN PRN IV 06/26/24 18:30 06/28/24 03:19 0.5 MG Ceftriaxone Sodium/Dextrose 50 ml @ 50 mls/hr DAILY IV 06/27/24 21:00 07/01/24 20:59 06/28/24 10:37 50 MLS/HR Vancomycin HCl 250 ml @ 250 mls/hr Q12H IV 06/27/24 23:00 06/28/24 02:53 250 MLS/HR Diagnostic Test (Pha) 1 strip ACHS 06/28/24 17:00 Insulin Glargine 10 units HS SC 06/28/24 22:00 Insulin Human Regular ACHS SC 06/28/24 17:00 Laboratory Results Laboratory Tests 06/27/24 06:22 Urinalysis Test 06/23/24 17:54 Urine Color Light-yellow (Yellow) Urine Clarity Clear (Clear) Urine pH 5.0 (5.0-9.0) Urine Specific [place] 1.025 (1.001-1.035) Urine Protein Negative (Negative) Urine Ketones Negative (Negative) Urine Blood Negative /uL (Negative) Urine Nitrite Negative (Negative) Urine Bilirubin Negative (Negative) Urine Urobilinogen Normal mg/dL (Negative) Urine Leukocyte Esterase Negative /uL (Negative) Urine RBC <1 /hpf (0 - 4) Urine Microscopic WBC 1 /HPF (0-5) Urine Squamous Epithelial Cells Few /hpf (<5) Urine Bacteria None seen /hpf (None Seen) Urine Glucose 4+ mg/dL (Normal) H Microbiology Microbiology Date/Time Source Procedure Growth Status 06/25/24 14:00 Foot Right Gram Stain - Final Resulted 06/25/24 14:00 Foot Right Anaerobic Culture - Preliminary Resulted 06/25/24 14:00 Aerobic Culture - Preliminary Enterococcus faecalis Resulted Labs and/or images reviewed: Labs reviewed by me, Image(s) reviewed by me Assessment/Plan Assessment/Plan Impression: -sepsis -diabetes mellitus: Uncontrolled with A1c at 9.7 -probable right foot osteomyelitis -obesity -accelerated hypertension -history of liver and renal transplant -CKD stage IIIa -hypertriglyceridemia Plan: Events: Patient reports that her pain has improved with new pain regimen. Blood sugars uncontrolled. PICC line nurse unable to place line due to fistula and pacemaker. IR consultation for power line placement. Explained this to family and patient. They are agreeable to procedure. Also discussed patient's codeine allergy, for which she states she has severe nausea and vomiting. Discussed with pharmacy pain management alternatives. We will attempt Percocet with the patient. -start Lantus 10 units subQ q.h.s. -PICC line placement order. We will also get nephrology consultation for okay of line placement. -pain management -podiatry consultation: Recommendations reviewed -change antibiotic therapy to vancomycin given Staphylococcus aureus. -continue Florastor -regular insulin sliding scale -continue Prograf and CellCept, prednisone -continue antihypertensives: Add hydralazine p.r.n. -repeat labs in a.m. -social service consultation for discharge planning Total time spent with patient discussing and formulating plan of care: 35 minutes. This medical document was created using an electronic medical record system with [employer] dictation system. Although this document has been carefully reviewed, there may still be some phonetic and typographical errors. These areas are purely typographical due to imperfections of the software programs, and do not reflect any compromise in the patient's medical care. Plan discussed with: Patient, Other (RN) My Orders Orders - NYDIA CASTREJON NP Procedure Category Date Status Time Vancomycin Per NEERAJ 06/27/24 In Process Pharmacy Protoc 23:00 Vancomycin 1gm/250ml PHA 06/27/24 In Process Kit 23:00 * Radiologist Consult CONS 06/28/24 Transmitted 10:38 Glucose Blood PHA 06/28/24 In Process (Accu-Chek Comfort 17:00 Insulin Lantus PHA 06/28/24 In Process (Glargine) (Lantus) 22:00 Pharmacy NEERAJ 06/28/24 In Process Clarification: 12:39 Insulin R (Human) PHA 06/28/24 In Process (Insulin R) 17:00 Oxycodone W/ Acet PHA 06/28/24 Transmitted 5/325mg Tab (Percocet 13:00 Date of Service: Jun 28, 2024 Billing Provider: NYDIA CASTREJON NP Common Visit Codes: [id number] INP/OBS CARE(HIGH) NYDIA CASTREJON NP Jun 28, 2024 12:57
[2024-06-28] MEDS: fentaNYL CITRATE 100 MCG/2 ML VL IV ONE (13:30)
[2024-06-28] MEDS: MIDAZOLAM HCL 2MG/2ML 2ml VIAL (1mg/ml) IV ONE (13:30)
--- NOTE | 2024-06-28 15:18 | DVH ---
XY Insertion of Venous Cath, HISTORY: POWER LINE INSERTION PROCEDURE: Informed consent was obtained. The patient was placed supine on the interventional table. A limited localization ultrasound of the right neck base was obtained. The right neck base and upper chest were prepped with chlorhexidine which was allowed to dry and draped in the usual sterile fashio n. Time out was performed. IV sedation was administered. The skin and the soft tissues were infiltrat ed with 1% Lidocaine . With real-time ultrasound guidance, the internal jugular vein was accessed wit h a micropuncture kit, and an image documenting patency was recorded to PACS. A subcutaneous tunneled tract was created from the right upper chest to the venotomy site. A 5 Citizen [place] Powerline, 21 cm long dual lumen catheter was trimmed to length and advanced through the tunneled tract. Fluoroscopy was used to advance a guidewire through the internal jugular vein into the inferior vena cava. A 5 Citizen [place] peel-away sheath was introduced, though which was advanced the catheter into the rig ht atrium. The catheter tip position was confirmed with fluoroscopy. There was satisfactory flow in b oth lumens. The catheter lumens were flushed with saline and heparin was left indwelling in the young ter. A post-procedure image of the chest was obtained. The neck incision site was closed with dermabo nd and dressed sterilely. The catheter was sutured at the skin surface and exit site also dressed harman rilely. No immediate complication was identified. DAP 479 FLUOROSCOPY TIME: 3.3 minutes. SEDATION: Dr. Julio Singer was personally responsible for the administration of moderate sedation during the procedure performed, including the use of an independent trained observer who had no other duties during the procedure. The drugs utilized were IV fentanyl and versed (see nursing log for details). The total time of supervision by the attending physician was approximately 30 minutes. FINDINGS: Widely patent right IJV. Post procedure image demonstrates smooth course of the hemodialysi s catheter with the tip in the right atrium. IMPRESSION: Successful placement of 5 Citizen [place] dual lumen Powerline, 21 cm long trimmed to length catheter through right internal jugular vein. Plan: Please contact IR for removal when no longer needed.
[2024-06-28] MEDS: OXYCODONE W/ ACETAMINOPHEN 5/325MG TABLET PO PRN (18:14)
[2024-06-28] MEDS: ACCU-CHEK COMFORT CURVE STRIP VI SCH (18:15)
[2024-06-28] MEDS: InsuLIN REG 1unit/0.01ml Soln (100units/ml) SC SCH (18:19)
--- NOTE | 2024-06-28 19:37 | DVHPN2 ---
Progress Note Date Seen: Jun 28, 2024 Medical Necessity Reason Pt with a Central, PICC or Fol: Yes Subjective Patient reports: No new complaints Review of Systems: HEENT:Normal, CVS:Normal, RESPIRATORY:Normal, GI:Normal, :Normal, MSK:Abnormal, NEURO:Normal Objective vital signs Vital Sign Date Time Temp Pulse Resp B/P (MAP) Pulse Ox O2 Delivery O2 Flow Rate FiO2 06/28/24 16:30 98.1 86 18 141/50 (80) 94 98.1 06/28/24 08:00 Room Air* 0 21 Total Intake and Output 06/27/24 06/27/24 06/28/24 15:00 23:00 07:00 Intake Total 1050 ml 700 ml 800 ml Balance 1050 ml 700 ml 800 ml medications Current Medications Medications Dose Ordered Sig/Xi Route Start Time Stop Time Status Last Admin Dose Admin Prednisone 5 mg DAILY PO 06/25/24 10:00 06/28/24 10:31 5 MG Mycophenolate Mofetil 500 mg BID PO 06/24/24 22:00 06/28/24 10:32 500 MG Tacrolimus 5 mg BID PO 06/24/24 22:00 06/28/24 10:31 5 MG Dextrose 50 ml UD PRN IV 06/24/24 10:15 Ondansetron HCl 4 mg Q4HP PRN IV 06/24/24 10:15 06/27/24 16:56 4 MG Acetaminophen 650 mg Q6HP PRN PO 06/24/24 10:15 06/27/24 07:39 650 MG Saccharomyces Boulardii 250 mg DAILY PO 06/25/24 10:00 06/28/24 10:33 250 MG Nifedipine 60 mg DAILY PO 06/25/24 10:00 06/28/24 10:31 60 MG Hydralazine HCl 10 mg Q6HP PRN IV 06/25/24 11:00 06/28/24 07:50 10 MG Vancomycin HCl 0 ml @ 0 mls/hr UD IV 06/26/24 18:15 Hydromorphone HCl 0.5 mg Q4HPRN PRN IV 06/26/24 18:30 Hold 06/28/24 03:19 0.5 MG Ceftriaxone Sodium/Dextrose 50 ml @ 50 mls/hr DAILY IV 06/27/24 21:00 07/01/24 20:59 06/28/24 10:37 50 MLS/HR Diagnostic Test (Pha) 1 strip ACHS 06/28/24 17:00 06/28/24 18:15 1 STRIP Insulin Glargine 10 units HS SC 06/28/24 22:00 Insulin Human Regular ACHS SC 06/28/24 17:00 06/28/24 18:19 4 UNITS Oxycodone/ Acetaminophen 1 tab Q6HP PRN PO 06/28/24 13:00 06/28/24 18:14 1 TAB Examination: GENERAL:Normal, HEENT:Normal, NECK:Normal, LUNGS:Normal, CVS:Normal, ABDOMEN:Normal, MSK:Abnormal, SKIN:Abnormal, NEURO:Normal, :Normal laboratory and microbiology Laboratory Tests 06/27/24 06:22 Test 06/27/24 06:22 Range/Units Serum Glucose 153 H 74-106 mg/dL Microbiology Date/Time Source Procedure Growth Status 06/25/24 14:00 Foot Right Gram Stain - Final Resulted 06/25/24 14:00 Foot Right Anaerobic Culture - Preliminary Resulted 06/25/24 14:00 Aerobic Culture - Final Enterococcus faecalis Staphylococcus aureus Resulted Problem List/Assessment/Plan Problem List/Assessment/Plan 1) ESRD status post kidney transplant in 2022 - stable allograft function. Appears euvolemic on exam. Metabolic parameters acceptable 2) right foot deep tissue infection/ osteomyelitis 3) diabetes 4) coronary artery disease 5) hypertension recs ok to hold ivf on vanco iv tacro level noted improved renal function Plan discussed with: Patient Dietary Evaluation Review Comments: 1. Recommend timely diet advancement as medically able to CHO Consistent 60 gm/meal s/p procedure 2. Suggest oral nutrition supplement (Ensure HP 1x/day) to optimize pts protein intake *provides 160 kcal, 16 gm pro, 19 gm CHO per carton 3. Continue to encourage excellent oral intake of meals *noted avg PO of 100% since admission 4. Maintain good glycemic control; goal <180 mg/dl while inpatient, adjust ss insulin as needed while pt receiving steroids 5. HA1C 9.7% - pt would benefit from outpatient DM education for additional support Expected Outcomes/Goals: Improved glycemic control, maintain skin integrity, wound healing. PIETRO LEWIS MD Jun 28, 2024 19:37
[2024-06-28] MEDS: INSULIN LANTUS (GLARGINE) 1 /0.01ml (100units/ml) SC SCH (21:40)
[2024-06-29 01:00] VITALS: BP 145/71; PULSE 77; RESP 17; TEMP 97.9; O2SAT 93
[2024-06-29 05:00] VITALS: BP 133/46; PULSE 79; RESP 17; TEMP 97.9; O2SAT 94
[2024-06-29 06:02] LABS: Basophils # (auto) 0 10 ^3/uL (0-0.2); Basophils % (auto) 0.6 % (0.0-2.0); Eosinophils # (auto) 0.2 10 ^3/uL (0-0.8); Eosinophils % (auto) 2.1 % (0.0-7.0); Hematocrit 31.9 % (36.0-46.0); Hemoglobin 10.6 g/dL (12.2-16.2); Lymphocytes # (auto) 1.9 10 ^3/uL (0.4-5.4); Lymphocytes % (auto) 24.3 % (10.0-50.0); Mean Corpuscular Hemoglobin 28.9 pg (28.0-32.0); Mean Corpuscular Hgb Conc. 33.2 g/dL (32.0-36.0); Mean Corpuscular Volume 87.1 fL (80.0-100.0); Monocytes # (auto) 0.5 10 ^3/uL (0-1.3); Monocytes % (auto) 6.3 % (0.0-12.0); Neutrophils # (auto) 5.1 10 ^3/uL (1.6-8.6); Neutrophils % (auto) 66.7 % (37.0-80.0); Platelet Count (auto) 295 10^3/uL (140-450); Red Blood Cells 3.66 10^6/uL (4.0-5.20); Red Cell Distribution Width 14.4 % (11.8-14.3); White Blood Cell 7.7 10^3/uL (4.4-10.8)
[2024-06-29 08:00] VITALS: PULSE 78; RESP 18
[2024-06-29 08:30] VITALS: BP 156/49; PULSE 78; RESP 16; TEMP 98.5; O2SAT 93
[2024-06-29 12:30] VITALS: BP 165/62; PULSE 79; RESP 16; TEMP 98.7; O2SAT 95
--- NOTE | 2024-06-29 12:38 | DVHDS2 ---
Discharge Summary Date of Admission Jun 23, 2024 at 22:23 Date of Discharge: Jun 29, 2024 Admitting Diagnosis Right foot pain Labs/Diagnostic Data: Laboratory Results Test 06/29/24 11:47 06/29/24 05:33 06/28/24 09:46 06/27/24 06:22 POC Glucose 228 mg/dl (70-106) White Blood Count 7.7 10^3/uL (4.4-10.8) Red Blood Count 3.66 10^6/uL (4.0-5.20) Hemoglobin 10.6 g/dL (12.2-16.2) Hematocrit 31.9 % (36.0-46.0) Mean Corpuscular Volume 87.1 fL (80.0-100.0) Mean Corpuscular Hemoglobin 28.9 pg (28.0-32.0) Mean Corpuscular Hemoglobin Concent 33.2 g/dL (32.0-36.0) Red Cell Distribution Width 14.4 % (11.8-14.3) Platelet Count 295 10^3/uL (140-450) Mean Platelet Volume 7.4 fL (6.9-10.8) Neutrophils (%) (Auto) 66.7 % (37.0-80.0) Lymphocytes (%) (Auto) 24.3 % (10.0-50.0) Monocytes (%) (Auto) 6.3 % (0.0-12.0) Eosinophils (%) (Auto) 2.1 % (0.0-7.0) Basophils (%) (Auto) 0.6 % (0.0-2.0) Neutrophils # (Auto) 5.1 10 ^3/uL (1.6-8.6) Lymphocytes # (Auto) 1.9 10 ^3/uL (0.4-5.4) Monocytes # (Auto) 0.5 10 ^3/uL (0-1.3) Eosinophils # (Auto) 0.2 10 ^3/uL (0-0.8) Basophils # (Auto) 0 10 ^3/uL (0-0.2) Nucleated Red Blood Cells 0.0 % Creatinine 0.99 mg/dL (0.550-1.02) Glomerular Filtration Rate Calc 64 mL/min (>90) Random Vancomycin Level 11.5 ug/mL (5-10) Vancomycin Level Trough 22.5 ug/mL (5-10) Prothrombin Time 10.9 sec (9.3-11.8) Prothrombin Time INR 1.03 (0.9-1.15) Activated Partial Thromboplast Time 35.9 SEC (24.5-34.5) Sodium Level 134 mmol/L (136-145) Potassium Level 4.4 mmol/L (3.5-5.1) Chloride Level 103 mmol/L (98-107) Carbon Dioxide Level 23 mmol/L (20-31) Anion Gap 8 (5-15) Blood Urea Nitrogen 11 mg/dL (9-23) BUN/Creatinine Ratio 11.6 (10.0-20.0) Serum Glucose 153 mg/dL (74-106) Calcium Level 9.4 mg/dL (8.7-10.4) Test 06/25/24 05:34 06/24/24 14:57 06/24/24 14:27 06/23/24 22:35 Total Bilirubin 0.2 mg/dL (0.2-1.0) Aspartate Amino Transferase (AST) 25 U/L (13-40) Alanine Aminotransferase (ALT) 56 U/L (7-40) Alkaline Phosphatase 198 U/L (46-116) Total Protein 7.4 g/dL (5.7-8.2) Albumin 4.1 g/dL (3.2-4.8) Hemoglobin A1c 9.7 % A1C (<5.7) C-Reactive Protein High Sensitivity 13.44 mg/dL (<1.0) Triglycerides Level 164 mg/dL (< 150) Cholesterol Level 142 mg/dL (< 200) LDL Cholesterol 65 mg/dL (< 100) HDL Cholesterol 45 mg/dL (40-59) Tacrolimus (LC/MS/MS) 6.6 ng/mL (.) Test 06/23/24 17:54 06/23/24 13:09 Urine Color Light-yellow (Yellow) Urine Clarity Clear (Clear) Urine pH 5.0 (5.0-9.0) Urine Specific [place] 1.025 (1.001-1.035) Urine Protein Negative (Negative) Urine Ketones Negative (Negative) Urine Blood Negative /uL (Negative) Urine Nitrite Negative (Negative) Urine Bilirubin Negative (Negative) Urine Urobilinogen Normal mg/dL (Negative) Urine Leukocyte Esterase Negative /uL (Negative) Urine RBC <1 /hpf (0 - 4) Urine Microscopic WBC 1 /HPF (0-5) Urine Squamous Epithelial Cells Few /hpf (<5) Urine Bacteria None seen /hpf (None Seen) Urine Glucose 4+ mg/dL (Normal) Erythrocyte Sedimentation Rate 90 mm/hr (0-20) Other Laboratory Tests 06/29/24 05:33 06/27/24 06:22 Brief Hx & Hospital Course: History of Present Illness 64-year-old female presents for evaluation of right foot wound. Patient reports having a chronic wound that has been going on for more than a year. She states that over the past four days she has noticed her right foot becoming more swollen, tender with redness. Denies fever or chills. Denies any trauma to the area. No other acute complaints reported. Course of hospitalization: Podiatry consultation was obtained. Patient underwent I and D right foot, with noted osteomyelitis. Cultures came back positive for both Enterococcus faecalis as well as Staphylococcus aureus, both drains susceptible to vancomycin. Nephrology consultation was obtained given patient's history of of liver and kidney transplant. Patient was continued on antirejection medication. Patient has been improved for IV antibiotic therapy post discharge. Patient had power line placed by radiologist given patient has previous fistula as well as pacemaker. She will be continued on all previous home medications, as well as receiving home health services for wound care, antibiotic therapy which includes vancomycin for approximately 6 weeks. Patient was agreeable with discharge plan. All questions answered. Physical exam General: Alert and Oriented x3. No acute distress. Well-nourished. Obese Eyes: EOMI. Anicteric. HENT: Moist mucous membranes. Lungs: Clear to auscultation bilaterally. No accessory muscle use. Cardiovascular: Regular rate and rhythm. No murmur. No JVD. Abdomen: Soft, non-tender and non-distended. No palpable masses. Extremities: No edema. Non-tender. Skin: No rashes or lesions. Warm. Neurologic: No focal neurological deficits. CN II-XII grossly intact, but not individually tested. Psychiatric: Cooperative. Appropriate mood and affect. Total time spent with patient discussing and formulating plan of care: 35 minutes. This medical document was created using an electronic medical record system with [employer] dictation system. Although this document has been carefully reviewed, there may still be some phonetic and typographical errors. These areas are purely typographical due to imperfections of the software programs, and do not reflect any compromise in the patient's medical care. Consults/Reason for consult Podiatry: Foot osteomyelitis Operations or Procedures 06/25/2024: Right foot I and D Condition at Discharge: Good Final Diagnosis/Problems List Cellulitis of right foot Secondary diagnosis: -sepsis -diabetes mellitus: Uncontrolled with A1c at 9.7 -obesity -accelerated hypertension -history of liver and renal transplant -CKD stage IIIa -hypertriglyceridemia Discharge Disposition: Home with Health Services Discharge Instruct/Medications Diet: Consistent carbohydrate, Cardiac 2g Na,low cholest Activity: See Comment Activity comment: Weight-bearing as tolerated Follow Up/Referral: Follow up with Podiatry in 1-2 weeks Medications: Continue all home medications Percocet 5/325 q.8 hours as needed for [id number] pain Vancomycin IV x6 weeks, to be adjusted by pharmacist 36 Discharge Statement: "Patient was advised to return to the ER or call 911 if any headaches, dizziness, shortness of breath, chest pain, abdominal pain, bleeding, fevers, or worsening of medical condition. Patient was counseled about treatment plan, medications, possible side effects, patientverbalized understanding. All questions were answered to the best of my ability. This discharge took greater then 30 minutes in planning, reviewing documentation, counseling the patient, and discussing with other team members." ASSESSMENT ASSESSMENT Assessment Cellulitis of right foot Date of Service: Jun 29, 2024 Billing Provider: NYDIA CASTREJON NP Common Visit Codes: 93586-CCE/OBS DISCH DAY >30min NYDIA CASTREJON NP Jun 29, 2024 12:38
[2024-06-29] MEDS ORDERED: PERCOT PO (14:23)
--- NOTE | 2024-06-29 15:24 | DVHPN2 ---
Progress Note Date Seen: Jun 29, 2024 Medical Necessity Reason Pt with a Central, PICC or Fol: Yes Subjective Patient reports: No new complaints Review of Systems: HEENT:Normal, CVS:Normal, RESPIRATORY:Normal, GI:Normal, :Normal, MSK:Abnormal, NEURO:Normal Objective vital signs Vital Sign Date Time Temp Pulse Resp B/P (MAP) Pulse Ox O2 Delivery O2 Flow Rate FiO2 06/29/24 13:07 159/58 06/29/24 12:30 98.7 79 16 95 98.7 06/29/24 08:00 Room Air* 0 21 Total Intake and Output 06/28/24 06/28/24 06/29/24 15:00 23:00 07:00 Intake Total 460 ml 200 ml Balance 460 ml 200 ml medications Current Medications Medications Dose Ordered Sig/Xi Route Start Time Stop Time Status Last Admin Dose Admin Prednisone 5 mg DAILY PO 06/25/24 10:00 06/29/24 10:47 5 MG Mycophenolate Mofetil 500 mg BID PO 06/24/24 22:00 06/29/24 10:47 500 MG Tacrolimus 5 mg BID PO 06/24/24 22:00 06/29/24 10:47 5 MG Dextrose 50 ml UD PRN IV 06/24/24 10:15 Ondansetron HCl 4 mg Q4HP PRN IV 06/24/24 10:15 06/27/24 16:56 4 MG Acetaminophen 650 mg Q6HP PRN PO 06/24/24 10:15 06/27/24 07:39 650 MG Saccharomyces Boulardii 250 mg DAILY PO 06/25/24 10:00 06/29/24 10:41 250 MG Nifedipine 60 mg DAILY PO 06/25/24 10:00 06/29/24 10:42 60 MG Hydralazine HCl 10 mg Q6HP PRN IV 06/25/24 11:00 06/29/24 13:07 10 MG Vancomycin HCl 0 ml @ 0 mls/hr UD IV 06/26/24 18:15 Hydromorphone HCl 0.5 mg Q4HPRN PRN IV 06/26/24 18:30 Hold 06/28/24 03:19 0.5 MG Ceftriaxone Sodium/Dextrose 50 ml @ 50 mls/hr DAILY IV 06/27/24 21:00 07/01/24 20:59 06/29/24 10:43 50 MLS/HR Diagnostic Test (Pha) 1 strip ACHS 06/28/24 17:00 06/29/24 12:19 1 STRIP Insulin Glargine 10 units HS SC 06/28/24 22:00 06/28/24 21:40 10 UNITS Insulin Human Regular ACHS SC 06/28/24 17:00 06/29/24 13:10 4 UNITS Oxycodone/ Acetaminophen 1 tab Q6HP PRN PO 06/28/24 13:00 06/29/24 10:41 1 TAB Vancomycin HCl 250 ml @ 250 mls/hr Q18H IV 06/29/24 14:10 Examination: GENERAL:Normal, HEENT:Normal, NECK:Normal, LUNGS:Normal, CVS:Normal, ABDOMEN:Normal, MSK:Abnormal, SKIN:Normal, NEURO:Normal, :Normal laboratory and microbiology Laboratory Tests 06/29/24 05:33 06/27/24 06:22 Test 06/27/24 06:22 Range/Units Serum Glucose 153 H 74-106 mg/dL Microbiology Date/Time Source Procedure Growth Status 06/25/24 14:00 Foot Right Gram Stain - Final Resulted 06/25/24 14:00 Foot Right Anaerobic Culture - Preliminary Resulted 06/25/24 14:00 Aerobic Culture - Final Enterococcus faecalis Staphylococcus aureus Resulted Problem List/Assessment/Plan Problem List/Assessment/Plan 1) ESRD status post kidney transplant in 2022 - stable allograft function. Appears euvolemic on exam. Metabolic parameters acceptable 2) right foot deep tissue infection/ osteomyelitis 3) diabetes 4) coronary artery disease 5) hypertension recs ok to hold ivf on vanco iv tacro level noted improved renal function Patient will be needing six weeks of IV antibiotics vancomycin patient will need outpatient follow-up of renal function Plan discussed with: Patient Dietary Evaluation Review Comments: 1. Recommend timely diet advancement as medically able to CHO Consistent 60 gm/meal s/p procedure 2. Suggest oral nutrition supplement (Ensure HP 1x/day) to optimize pts protein intake *provides 160 kcal, 16 gm pro, 19 gm CHO per carton 3. Continue to encourage excellent oral intake of meals *noted avg PO of 100% since admission 4. Maintain good glycemic control; goal <180 mg/dl while inpatient, adjust ss insulin as needed while pt receiving steroids 5. HA1C 9.7% - pt would benefit from outpatient DM education for additional support Expected Outcomes/Goals: Improved glycemic control, maintain skin integrity, wound healing. PIETRO LEWIS MD Jun 29, 2024 15:24
[2024-06-29 16:30] VITALS: BP 138/41; PULSE 77; RESP 16; TEMP 98.4; O2SAT 92
[2024-06-29] MEDS: VANCOMYCIN 1GM/250ML KIT 250 ML IV SCH (16:55)
== END 2024-06-29 20:52 | disposition home health service (06) | DRG 854 ==
LOC: ER 12:12 → OVERFLOW 22:23 → ER 22:28 → EAST 06-24 09:51
PROVIDERS: ADMIT Nurse Practitioner Acute Care; ATTEND Nurse Practitioner Acute Care
PROC: 0QBN0ZZ Excision of Right Metatarsal, Open Approach (ICD-10-PCS; 2024-06-25)
PROC: 0Y9M0ZZ Drainage of Right Foot, Open Approach (ICD-10-PCS; principal; 2024-06-25 13:04)
PROC: 05JYXZZ Inspection of Upper Vein, External Approach (ICD-10-PCS; 2024-06-27)
PROC: 0JH63XZ Insertion of Tunneled Vascular Access Device into Chest Subcutaneous Tissue and Fascia, Percutaneous Approach (ICD-10-PCS; 2024-06-28)
PROC: 02H633Z Insertion of Infusion Device into Right Atrium, Percutaneous Approach (ICD-10-PCS; 2024-06-28)
PROC: B518ZZA Fluoroscopy of Superior Vena Cava, Guidance (ICD-10-PCS; 2024-06-28)
PROC: B548ZZA Ultrasonography of Superior Vena Cava, Guidance (ICD-10-PCS; 2024-06-28)
DX: A41.9 Sepsis, unspecified organism (principal); L02.611 Cutaneous abscess of right foot; M86.8X7 Other osteomyelitis, ankle and foot; Z94.4 Liver transplant status; L03.115 Cellulitis of right lower limb; Z94.0 Kidney transplant status; L97.519 Non-pressure chronic ulcer of other part of right foot with unspecified severity; E11.22 Type 2 diabetes mellitus with diabetic chronic kidney disease; E66.9 Obesity, unspecified; N18.31 Chronic kidney disease, stage 3a; Z99.2 Dependence on renal dialysis; E11.621 Type 2 diabetes mellitus with foot ulcer; B95.61 Methicillin susceptible Staphylococcus aureus infection as the cause of diseases classified elsewhere; E78.1 Pure hyperglyceridemia; M89.9 Disorder of bone, unspecified; I12.9 Hypertensive chronic kidney disease with stage 1 through stage 4 chronic kidney disease, or unspecified chronic kidney disease; E11.69 Type 2 diabetes mellitus with other specified complication; F41.9 Anxiety disorder, unspecified; I25.10 Atherosclerotic heart disease of native coronary artery without angina pectoris; Z88.5 Allergy status to narcotic agent; Z88.8 Allergy status to other drugs, medicaments and biological substances; Z79.899 Other long term (current) drug therapy; Z79.82 Long term (current) use of aspirin; Z79.4 Long term (current) use of insulin; Z79.2 Long term (current) use of antibiotics; Z83.3 Family history of diabetes mellitus; Z82.49 Family history of ischemic heart disease and other diseases of the circulatory system; Z90.49 Acquired absence of other specified parts of digestive tract; Z79.1 Long term (current) use of non-steroidal anti-inflammatories (NSAID); Z95.0 Presence of cardiac pacemaker; Z68.32 Body mass index [BMI] 32.0-32.9, adult
CPT/HCPCS: 36415; 71045; 73700; 80048; 80053; 80061; 80197; 80202; 81001; 82565; 82962; 83036; 85025; 85610; 85652; 85730; 86141; 87070; 87075; 87077; 87186; 87205; 99152; C1894; G0378; J0690; J1815; J2250; J2405; J2704; J3490; J7507; J7517

== ENCOUNTER 2024-08-12 20:51 | Emergency (ER) | payer MEDICARE, MEDICAID ==
[~2024-08-12 20:51] MED LIST changes: +PERCOT PO
== END 2024-08-12 21:05 | disposition left against medical advice (07) ==
LOC: ER 20:51 → EDUNIT# 20:51 → ER 21:05
DX: Z45.2 Encounter for adjustment and management of vascular access device (principal); Z53.21 Procedure and treatment not carried out due to patient leaving prior to being seen by health care provider